=== PATIENT | male | born 1960 | race Caucasian/White ===

== ENCOUNTER 2024-11-01 14:22 | Inpatient (IN) | payer OTHER ==
--- OUTSIDE RECORDS SUMMARY | 2024-11-01 14:25 | XMS REPORT | Continuity of Care Document ---
Author Name Unknown Address [address] [facility] [address] th[address] Address [address] [facility] 1 [address] [place] [address] Care Team Providers Care Flute Teacher Name Role Phone Porfirio Pollard Attending Clinician Unavailable Anurag Marinelli Attending Clinician Unavailable Encounters Start Date/Time End Date/Time Encounter Type Admission Type Attending Clinicians Care Facility Care Department Encounter ID Source 2023-08-30 15:29:00 [facility] [id number] [facility] 2023-08-20 08:20:01 Outpatient Porfirio Pollard [facility] [id number] [facility] 2023-04-07 12:49:00 Outpatient Porfirio Pollard [facility] [id number] [facility] 2023-04-05 08:45:02 Outpatient Anurag Marinelli [facility] [id number] [facility] 2022-12-29 08:28:02 Outpatient Anurag Marinelli [facility] [id number] [facility]
--- NOTE | 2024-11-01 15:00 | RAD REPORT ---
EXAMINATION: ONE VIEW CHEST XR CLINICAL INDICATION: DYSPNEA TECHNIQUE: Frontal chest projection is submitted. Examination is limited by patient positioning and t echnique. COMPARISON: 07/12/2007 FINDINGS: Moderate bilateral pulmonary opacities are present, slightly greater on the right. This would indicat e pulmonary edema or pneumonia. The heart is moderately enlarged in size. No displaced fractures identified.
[2024-11-01 15:49] LABS: SARS-CoV-2 Antigen CONTROL BLUE LINE VIS/BG OK; SARS-CoV-2 Antigen Rapid Res Negative (Negative)
[2024-11-01 15:56] LABS: Albumin 3.1 g/dL (3.4-5.0); Albumin/Globulin Ratio 0.6 (1.1-1.8); Anion Gap 10.4 mEq/L (5.0-15.0); Bilirubin Total 0.9 mg/dL (0.2-1.0); Globulin 5.1 g/dL (2.3-3.5); Potassium 3.4 mEq/L (3.5-5.1); Protein, Total 8.2 g/dL (6.4-8.2)
[2024-11-01 15:59] LABS: PTT, Activated Partial Thromb 34.9 SECONDS (24.3-36.9); Protime INR 1.26
[2024-11-01] MEDS ORDERED: LEVALBUTEROL 1.25 MG/3 ML NEB ONE (16:08)
[2024-11-01] MEDS ORDERED: HYDROCODONE/APAP 10/325 TAB ONE (16:08)
[2024-11-01 16:33] LABS: Absolute Basophils 0.1 K/uL (0-0.5); Absolute Lymphocytes (CBC) 0.4 K/uL (0.7-4.9); Absolute Monocytes 0.5 K/uL (0.1-1.3); Absolute Neutrophil 6.9 K/uL (1.8-8.0); Basophils % 0.8 % (0-1.3); Eosinophils % 0.4 % (0-4.4); Hematocrit 40.7 % (39.6-49.0); Hemoglobin 12.9 g/dL (13.6-17.9); Lymphocytes % 5.4 % (15.3-44.8); MCH 25.9 pg (27.0-35.0); MCHC 31.7 g/dL (32.0-36.0); MCV 81.6 fL (80-100); MPV 8.9 fL (7.6-11.3); Monocytes % 6.4 % (3.3-12.3); Nucleated Red Blood Cells % 0.2 % (0-0); Platelets 275 thou/uL (152-406); RBC Red Blood Cell Count 4.99 M/uL (4.33-5.43); Red Cell Distribution Width 17.2 % (12.1-15.2)
[2024-11-01] MEDS ORDERED: Levofloxacin500mg IV 500 MG/100 ML BAG IV ONE (16:37)
--- NOTE | 2024-11-01 16:48 | EDPHYS ---
Physician Documentation [facility] Name: Heath Gaviria Age: 64 yrs Sex: Male : 1960 Arrival Date: 11/01/2024 Time: 14:22 Bed 13 Private MD: ED Physician Cricket Maldonado HPI: 11/01 15:10 This 64 yrs old Male presents to ER via EMS with complaints of Shortness Of Breath. rn 15:10 The patient has shortness of breath at rest, with light activity. Onset: The rn symptoms/episode began/occurred yesterday. Duration: The symptoms are continuous. The patient's shortness of breath is aggravated by exertion, light activity, supine position, walking. Severity of symptoms: At their worst the symptoms were moderate in the emergency department the symptoms are unchanged. The patient has experienced similar episodes in the past. Patient reports feeling short of breath and weak for 3 days. Reports cough and congestion. No fever or chills. Reports increased leg swelling recently. States does not have PCP.. Historical: - Allergies: 14:34 PENICILLINS; me1 14:34 Iodine; me1 14:34 Tetanus Vaccines \T\ Toxoid; me1 - PMHx: 14:34 Hypertensive disorder; Diabetes mellitus; me1 - Immunization history:: Adult Immunizations unknown. - Infectious Disease History:: Denies. - Social history:: Smoking status: Patient reports the use of cigarette tobacco products, smokes one pack cigarettes per day. - Family history:: not pertinent. - Hospitalizations: : No recent hospitalization is reported. ROS: 15:10 Constitutional: Negative for fever, chills, and weight loss, Cardiovascular: Positive rn for lower extremity edema Respiratory: Positive for cough and shortness of breath, negative for hemoptysis Abdomen/GI: Negative for abdominal pain, nausea, vomiting, diarrhea, and constipation, MS/Extremity: Negative for injury and deformity, Skin: Negative for injury, rash, and discoloration, Neuro: Positive for generalized weakness and malaise Exam: 15:10 Constitutional: This is a well developed, well nourished patient who is awake, alert, rn and in no acute distress. Cardiovascular: Tachycardic, irregular rhythm. No pulse deficits. Respiratory: Moderate tachypnea with diminished breath sounds bilaterally, no retractions Abdomen/GI: Soft, nontender MS/ Extremity: No cyanosis. Bilateral chronic woody edema with circular wound plantar surface of left foot, mild warmth. Neuro: Awake and alert, GCS 15 15:39 ECG was reviewed by the Attending Physician. rn Vital Signs: 14:27 BP 173 / 109; Pulse 90; Resp 24; Temp 97.4; Pulse Ox 100% on 4 lpm NC; Weight 183 kg; me1 Height 6 ft. 4 in. ; Pain 0/10; 15:00 BP 205 / 104; Pulse 110; Resp 22; Pulse Ox 99% on 4 lpm NC; me1 16:00 BP 194 / 114; Pulse 110; Resp 22; Pulse Ox 98% on R/A; me1 16:46 BP 169 / 99; rn 17:00 BP 170 / 95; Pulse 103; Resp 22; Pulse Ox 98% on 4 lpm NC; me1 18:00 BP 174 / 94; Pulse 104; Resp 18; Pulse Ox 96% on 4 lpm NC; me1 18:30 BP 161 / 90; Pulse 89; Resp 16; Pulse Ox 99% on 4 lpm NC; me1 14:27 Body Mass Index 49.11 (183.00 kg, 193.04 cm) me1 14:27 Pain Scale: Adult me1 MDM: 14:25 Medical Screening Exam initiated rn 15:58 ED course: Patient also with smoking history, given Solu-Medrol by EMS prior to arrival.rn 16:22 ED course: EMS reports O2 sat 86% on room air. 97% on 4 L nasal cannula.. rn 16:46 Differential diagnosis: CHF exacerbation, Chronic Obstructive Pulmonary Disease rn pneumonia, Pneumothorax pulmonary edema. Data reviewed: vital signs, nurses notes, lab test result(s), radiologic studies, plain films, and as a result, I will admit patient. Consideration of Admission/Observation Patient was admitted/placed on observation. Escalation of care including admission/observation considered. Counseling: I had a detailed discussion with the patient and/or guardian regarding the historical points, exam findings, and any diagnostic results supporting the discharge/admit diagnosis, the presence of at least one elevated blood pressure reading (>120/80) during this emergency department visit, lab results, radiology results, the need for further work-up and treatment in the hospital. Response to treatment: the patient's symptoms have mildly improved after treatment. 11/01 14:26 Order name: Blood Culture Adult (2) rn 11/01 14:26 Order name: CBC with Diff rn 11/01 14:26 Order name: CMP; Complete Time: 16:06 rn 11/01 14:26 Order name: Lactate w/ 2H reflex if indic.; Complete Time: 15:56 rn 11/01 14:26 Order name: Protime (+inr); Complete Time: 16:06 rn 11/01 14:26 Order name: Ptt, Activated; Complete Time: 16:06 rn 11/01 14:33 Order name: SARS-COV-2 Antigen Rapid; Complete Time: 15:56 rn 11/01 14:33 Order name: Flu; Complete Time: 15:56 rn 11/01 15:04 Order name: BNP; Complete Time: 16:43 rn 11/01 17:23 Order name: Urinalysis w/ reflexes EDMS 11/01 17:23 Order name: Basic Metabolic Panel EDMS 11/01 17:23 Order name: Basic Metabolic Panel EDMS 11/01 17:23 Order name: Basic Metabolic Panel EDMS 11/01 17:23 Order name: Basic Metabolic Panel EDMS 11/01 17:23 Order name: Basic Metabolic Panel EDMS 11/01 17:23 Order name: Basic Metabolic Panel EDMS 11/01 17:23 Order name: CBC with Automated Diff EDMS 11/01 17:23 Order name: CBC with Automated Diff EDMS 11/01 17:23 Order name: CBC with Automated Diff EDMS 11/01 17:23 Order name: CBC with Automated Diff EDMS 11/01 17:23 Order name: CBC with Automated Diff EDMS 11/01 17:23 Order name: CBC with Automated Diff EDMS 11/01 17:23 Order name: Magnesium EDMS 11/01 17:23 Order name: Magnesium EDMS 11/01 17:23 Order name: Magnesium EDMS 11/01 17:23 Order name: Magnesium EDMS 11/01 17:23 Order name: Magnesium EDMS 11/01 17:23 Order name: Magnesium EDMS 11/01 17:23 Order name: Phosphorus EDMS 11/01 17:23 Order name: Phosphorus EDMS 11/01 17:23 Order name: Phosphorus EDMS 11/01 17:23 Order name: Phosphorus EDMS 11/01 17:23 Order name: Phosphorus EDMS 11/01 17:23 Order name: Phosphorus EDMS 11/01 17:44 Order name: Procalcitonin EDUT 11/01 17:44 Order name: Troponin High Sensitivity [facility] 11/01 17:44 Order name: Troponin High Sensitivity [facility] 11/01 17:44 Order name: Troponin High Sensitivity [facility] 11/01 17:44 Order name: Troponin High Sensitivity [facility] 11/01 14:26 Order name: Chest Single View XRAY; Complete Time: 15:04 rn 11/01 17:50 Order name: CONS Physician Consult EDUT 11/01 14:26 Order name: Accucheck; Complete Time: 17:13 rn 11/01 14:26 Order name: Cardiac monitoring; Complete Time: 15:30 rn 11/01 14:26 Order name: EKG - Nurse/Tech; Complete Time: 15:30 rn 11/01 14:26 Order name: IV Saline Lock - Large Bore; Complete Time: 15:10 rn 11/01 14:26 Order name: Labs collected and sent; Complete Time: 15:10 rn 11/01 14:26 Order name: O2 Per Protocol; Complete Time: 15:10 rn 11/01 14:26 Order name: O2 Sat Monitoring; Complete Time: 15:10 rn 11/01 14:26 Order name: Vital Signs; Complete Time: 15:10 rn 11/01 15:25 Order name: Labs - recollect needed: recollect blue top/ short and hemolyzed per kirit Rudolph; Complete Time: 16:05 EC:39 Rate is 110 beats/min. Rhythm is irregularly irregular. QRS [place] is Normal. QRS rn interval is normal. QT interval is normal. No Q waves. T waves are Normal. No ST changes noted. Clinical impression: Atrial Fibrillation. Interpreted by me. Reviewed by me. Administered Medications: 16:11 Drug: Levalbuterol Inhalation 1.25 mg Inhalation once Route: Inhalation; me1 17:10 Follow up: Response: No adverse reaction me1 16:14 Drug: [place] PO 10 mg-325 mg 1 tabs PO once Route: PO; me1 16:48 Follow up: Response: No adverse reaction; Pain is decreased me1 16:42 Drug: levofloxacin IVPB 500 mg 100 ml IVPB once over 60 mins Volume: 100 ml; Route: [facility] IVPB; Infused Over: 60 mins; Site: left hand; 17:42 Follow up: Response: No adverse reaction; IV Status: Completed infusion; IV Intake: me1 100ml 17:17 Drug: Furosemide IVP 40 mg IVP once; give over 2 minutes Route: IVP; Site: left hand; me1 17:29 Follow up: Response: No adverse reaction me1 Disposition Summary: 11/01/24 16:47 Hospitalization Ordered Notes: Hospitalization Status: Inpatient Admission rn Provider: Srinivasan Nguyen rn Location: Telemetry/MedSurg (observation) rn Condition: Stable rn Problem: new rn Symptoms: have improved rn Bed/Room Type: Standard rn Room Assignment: 229(11/01/24 17:35) em1 Diagnosis - Dyspnea, unspecified rn - Acute pulmonary edema rn - Hypoxemia rn Forms: - Medication Reconciliation Form rn - SBAR form rn - Leadership Thank You Letter rn Signatures: Dispatcher [employer] [facility] Cricket Maldonado MD MD rn Martinez, Eric em1 Gina Meyer Michelle, RN RN me1 Corrections: (The following items were deleted from the chart) 14:26 14:26 Chest Single View+[id number] ordered. [facility] EDUT 15:55 15:10 Constitutional: This is a well developed, well nourished patient who is awake, rn alert, and in no acute distress. Cardiovascular: Regular rate and rhythm. No pulse deficits. Respiratory: Moderate tachypnea with diminished breath sounds bilaterally, no retractions Abdomen/GI: Soft, nontender MS/ Extremity: No cyanosis. Bilateral chronic woody edema with circular wound plantar surface of left foot, mild warmth. Neuro: Awake and alert, GCS 15 rn 17:35 16:47 rn em1
--- NOTE | 2024-11-01 16:48 | ER ---
Nurse's Notes [facility] Name: Heath Gaviria Age: 64 yrs Sex: Male : 1960 Arrival Date: 11/01/2024 Time: 14:22 Bed 13 Private MD: Diagnosis: Dyspnea, unspecified;Acute pulmonary edema;Hypoxemia Presentation: 11/01 14:27 Chief complaint: EMS states: toned out for SOB that started last night. c/o diarrhea, me1 dizziness, nausea, cough and congestion that started 3 days ago. Room air o2 sat was 86%, administered 4 lpm via nc and sat increased to 97%. EMS started a 20g to L hand and was given solumedrol 125mg IV and zofran 4mg IV. Coronavirus screen: Vaccine status: Patient reports receiving the 2nd dose of the covid vaccine. Ebola Screen: No symptoms or risks identified at this time. Initial Sepsis Screen: Does the patient meet any 2 criteria? HR > 90 bpm. Does the patient have a suspected source of infection?. Risk Assessment: Do you want to hurt yourself or someone else? Patient reports no desire to harm self or others. Onset of symptoms was October 29, 2024. 14:27 Method Of Arrival: EMS: [facility] nh1 14:27 Acuity: ALKA 3 me1 Triage Assessment: 14:34 General: Appears distressed, obese, unkempt, Behavior is cooperative, appropriate for me1 age, anxious, Reports diarrhea, dizziness, nausea, cough, congestion x 3 days. SOB that started yesterday. Pain: Denies pain. EENT: Reports nasal congestion. Neuro: Level of Consciousness is awake, alert, obeys commands, Oriented to person, place, time, situation, Appropriate for age Reports dizziness. Cardiovascular: Patient's skin is warm and dry. Respiratory: Reports shortness of breath at rest on exertion cough that is labored breathing Onset: The symptoms/episode began/occurred yesterday, the patient has moderate shortness of breath. GI: Reports diarrhea, nausea, since 3 days ago. : No signs and/or symptoms were reported regarding the genitourinary system. Derm: Wound noted right leg and left leg Wound is lymphedema. Musculoskeletal: Swelling present in right leg and left leg. Historical: - Allergies: 14:34 PENICILLINS; me1 14:34 Iodine; me1 14:34 Tetanus Vaccines \T\ Toxoid; me1 - PMHx: 14:34 Hypertensive disorder; Diabetes mellitus; me1 - Immunization history:: Adult Immunizations unknown. - Infectious Disease History:: Denies. - Social history:: Smoking status: Patient reports the use of cigarette tobacco products, smokes one pack cigarettes per day. - Family history:: not pertinent. - Hospitalizations: : No recent hospitalization is reported. Screenin:42 [facility] ED Fall Risk Assessment (Adult) History of falling in the last 3 months, me1 including since admission No falls in past 3 months (0 pts) Confusion or Disorientation No (0 pts) Intoxicated or Sedated No (0 pts) Impaired Gait Yes (1 pt) Mobility Assist Device Used Yes (1 pt) Altered Elimination No (0 pt) Score/Fall Risk Level 0 - 2 = Low Risk Maintained a safe environment, Provided non-skid footwear, Hourly rounding (assess needs \T\ fall precautionary measures) done. Abuse screen: Denies threats or abuse. Nutritional screening: No deficits noted. Tuberculosis screening: No symptoms or risk factors identified. Assessment: 14:42 Reassessment: See triage assessment. Respiratory: Airway is patent Respiratory effort me1 is labored, Respiratory pattern is tachypnea Breath sounds are diminished bilaterally. 17:56 Cardiovascular: Rhythm is atrial fibrillation. nh1 Vital Signs: 14:27 BP 173 / 109; Pulse 90; Resp 24; Temp 97.4; Pulse Ox 100% on 4 lpm NC; Weight 183 kg; me1 Height 6 ft. 4 in. ; Pain 0/10; 15:00 BP 205 / 104; Pulse 110; Resp 22; Pulse Ox 99% on 4 lpm NC; me1 16:00 BP 194 / 114; Pulse 110; Resp 22; Pulse Ox 98% on R/A; me1 16:46 BP 169 / 99; rn 17:00 BP 170 / 95; Pulse 103; Resp 22; Pulse Ox 98% on 4 lpm NC; me1 18:00 BP 174 / 94; Pulse 104; Resp 18; Pulse Ox 96% on 4 lpm NC; me1 18:30 BP 161 / 90; Pulse 89; Resp 16; Pulse Ox 99% on 4 lpm NC; me1 14:27 Body Mass Index 49.11 (183.00 kg, 193.04 cm) me1 14:27 Pain Scale: Adult nh1 ED Course: 14:25 Patient arrived in ED. rn 14:25 Cricket Maldonado MD is Attending Physician. rn 14:26 Kasia Richey, PHILLIP is Primary Nurse. me1 14:34 Triage completed. me1 14:34 Arm band placed on Patient placed in an exam room. me1 14:39 Chest Single View XRAY In Process Unspecified. EDMS 14:42 Patient has correct armband on for positive identification. Bed in low position. Call me1 light in reach. Side rails up X2. Provided Education on: POC. Verbalized understanding.. Client placed on continuous cardiac and pulse oximetry monitoring. NIBP monitoring applied. hospital monitor on. Pulse ox on. NIBP on. 14:42 No provider procedures requiring assistance completed. Maintain EMS IV. Dressing me1 intact. Good blood return noted. Site clean \T\ dry. Gauge \T\ site: 20g L hand. Flushed with 10 mL NS. 15:06 Initial lab(s) drawn, by nh, sent to lab. First set of blood cultures drawn by nh. me1 15:10 BNP Sent. me1 15:10 Flu Sent. me1 15:10 SARS-COV-2 Antigen Rapid Sent. me1 15:10 Blood Culture Adult (2) Sent. me1 15:10 CBC with Diff Sent. me1 15:10 CMP Sent. me1 15:10 Lactate w/ 2H reflex if indic. Sent. me1 15:10 Protime (+inr) Sent. me1 15:10 Ptt, Activated Sent. me1 15:18 Second set of blood cultures drawn by nh. me1 15:30 EKG done, by ED staff, reviewed by Cricket Maldonado MD. me1 16:46 Srinivasan Nguyen is Hospitalizing Provider. rn 17:53 Patient admitted, IV remains in place. me1 Administered Medications: 16:11 Drug: Levalbuterol Inhalation 1.25 mg Inhalation once Route: Inhalation; me1 17:10 Follow up: Response: No adverse reaction me1 16:14 Drug: [place] PO 10 mg-325 mg 1 tabs PO once Route: PO; me1 16:48 Follow up: Response: No adverse reaction; Pain is decreased me1 16:42 Drug: levofloxacin IVPB 500 mg 100 ml IVPB once over 60 mins Volume: 100 ml; Route: me1 IVPB; Infused Over: 60 mins; Site: left hand; 17:42 Follow up: Response: No adverse reaction; IV Status: Completed infusion; IV Intake: me1 100ml 17:17 Drug: Furosemide IVP 40 mg IVP once; give over 2 minutes Route: IVP; Site: left hand; me1 17:29 Follow up: Response: No adverse reaction me1 Medication: 14:42 VIS not applicable for this client. me1 Intake: 17:42 IV: 100ml; Total: 100ml. me1 Outcome: 16:47 Decision to Hospitalize by Provider. rn 17:53 Admitted to Med/surg accompanied by tech, via stretcher, room 229, with chart, Report me1 called to faxed. No answer. Informed PHILLIP Richter (lodging house keeper). Neelam is checking on a bariatric bed for the patient and will call me back. 17:53 Condition: stable 17:53 Instructed on the need for admit, 18:51 Patient left the ED. me1 Signatures: Dispatcher [employer] Cricket Holloway MD MD rn Eddleman, Michelle, RN RN me1
[2024-11-01] MEDS ORDERED: FUROSEMIDE 40 MG/4 ML VIAL ONE (17:11)
[2024-11-01] MEDS: FUROSEMIDE 40 MG/4 ML VIAL IV ONE (17:17)
--- NOTE | 2024-11-01 17:25 | P.HP ---
Certification for Inpatient Patient admitted to: Inpatient With expected LOS: >2 Midnights Practitioner: I am a practitioner with admitting privileges, knowledge of patient current condition, hospital course, and medical plan of care. Services: Services provided to patient in accordance with Admission requirements found in Title 42 Section 412.3 of the Code of Federal Regulations Patient History Date of Service: 11/01/24 Reason for admission: Pulmonary edema vs PNA History of Present Illness: Heath Gaviria is a 64 year old male with Pmhx HTN, Diabetes mellitus, and verrucous cobblestone papules who presents to the ED with chief complaint of SOB. On evaluation, he is on 4 LNC, uncomfortable with positioning, malodorous bilateral lower extremity verrucous cobblestone papules present. He reports seeing Dr. Pollard but lost his insurance and is unable to see a doctor at this time. He reports wrapping his legs on his own and has experienced an increased swelling to BLE. Laboratory evaluation significant for left shift neutrophil 87, H&H 12.9/40.7, sodium 128, potassium 3.4, serum glucose 230, BNP 1625. Initial vitals BP 173 / 109; Pulse 90; Resp 24; Temp 97.4; Pulse Ox 100% on 4 lpm NC Chest xray reports "Moderate bilateral pulmonary opacities are present, slightly greater on the right. This would indicate pulmonary edema or pneumonia. The heart is moderately enlarged in size. No displaced fractures identified." Heath will be admitted to hospitalist service for further evaluation and treatment of bilateral pulmonary edema. Allergies No Known Allergies Allergy (Unverified 11/01/24 17:28) - Past Medical/Surgical History -: DM- IDDM -: HTN -: Chronic wounds BLE Past Surgical History: Unable to obtain Review of Systems General: Other (uncomfortable) Respiratory: Shortness of Breath Physical Examination - Physical Exam General: Alert, Oriented x3, Acute distress HEENT: Atraumatic, Normocephalic Neck: Supple Respiratory: Clear to auscultation bilaterally Cardiovascular: Normal pulses, Regular rate/rhythm, Normal S1 S2 Capillary refill: <2 Seconds Gastrointestinal: Normal bowel sounds, Distended (Obese) Musculoskeletal: No clubbing, Other (Cobblestone papules BLE) Integumentary: Skin breakdown (BLE) Neurological: Normal speech, Normal tone - Studies Laboratory Data (last 24 hrs) 11/01/24 11/01/24 11/01/24 15:43 15:06 15:06 WBC 8.00 Hgb 12.9 L Hct 40.7 Plt Count 275 PT 14.0 H INR 1.26 APTT 34.9 Sodium 128 L Potassium 3.4 L BUN 9 Creatinine 0.81 Glucose 230 H Total Bilirubin 0.9 AST 20 ALT 17 Alkaline Phosphatase 59 Microbiology Data (last 24 hrs): 11/01/24 14:51 Nasopharnyx Influenza Type A Antigen Screen - Final 11/01/24 14:51 Nasopharnyx Influenza Type B Antigen Screen - Final Assessment and Plan - Plan Assessment and Plan SOB 2/2 Bilateral Pulmonary Edema vs PNA Hyponatremia 2/2 Fluid volume overload Nausea/vomiting -Na 128, BNP 1624 -Serial Troponin pending - lasix 40 IV given in the ED, continue on the floor -Oxygen protocol -procalcitonin pending -Strict intake and output, daily weight -Levofloxacin -Zofran Diabetes Mellitus- IDDM - Accucheck with SSI -Serum glucose 230 HTN -continue home medications when appropriate verrucous cobblestone papules Debilitated -Consult surgery -Physical therapy DVT ppx Lovenox Full code LOS 2 to 3 days Discharge Plan: Home Plan to discharge in: 48 Hours - Advance Directives Does patient have a Living Will: No Does patient have a Durable POA for Healthcare: No
[2024-11-01 19:27] LABS: Blood Morphology Comment NOT SEEN (NOT SEEN); Platelet Estimate ADEQ; White Blood Cell Scan OK (OK)
[2024-11-01] MEDS: ONDANSETRON 4 MG/2 ML VIAL ONE (19:57)
[2024-11-01] MEDS: ONDANSETRON 4 MG/2 ML VIAL IV PRN (20:09)
[2024-11-01] MEDS: ACETAMINOPHEN 325 MG TABLET PO PRN (20:11)
[2024-11-01] MEDS: ALBUTEROL 2.5 MG/3 ML NEB SOL NEB SCH (20:11)
[2024-11-01] MEDS: INSULIN REGULAR (HUMAN) 100 UNIT/ML SQ SCH (22:42)
[2024-11-01] MEDS: PROCHLORPERAZINE 5 MG TAB PO ONE (23:17)
[2024-11-02] MEDS: PROMETHAZINE INJ 25 MG/ML AMP IV ONE (00:02)
[2024-11-02] MEDS: MORPHINE 2 MG/ML SYR IV PRN (01:25)
[2024-11-02 04:23] LABS: Specific Gravity 1.025 (1.005-1.030); Sqamous Epithelial <5 /HPF (None Seen); Urine Bacteria Loaded /HPF (<20); Urine Bilirubin NEGATIVE (Negative); Urine Blood 3+ (Negative); Urine Clarity Extremely Turbid (Clear); Urine Color Orange (Yellow); Urine Culture Reflex Order NOT NEEDED; Urine Glucose 2+ (Negative); Urine Ketones 2+ (Negative); Urine Microscopic Reflex YN ORDER UMIC; Urine Mucus 2+ /HPF (None Seen); Urine Nitrite NEGATIVE (Negative); Urine Protein 2+ (Negative); Urine RBC <5 /HPF (None Seen); Urine Urobilinogen Normal (Normal); Urine WBC <5 /HPF (<5); Urine pH 5.5 (5.0-7.0)
[2024-11-02 06:30] LABS: Troponin High Sensitivity 24.4 pg/mL (<58.9)
[2024-11-02 07:01] LABS: Absolute Lymphocytes (CBC) 0.4 K/uL (0.7-4.9); Absolute Monocytes 0.4 K/uL (0.1-1.3); Absolute Neutrophil 5.8 K/uL (1.8-8.0); Basophils % 0.2 % (0-1.3); Eosinophils % 0.1 % (0-4.4); Hemoglobin 13.6 g/dL (13.6-17.9); Lymphocytes % 5.8 % (15.3-44.8); MCH 25.7 pg (27.0-35.0); MCHC 30.8 g/dL (32.0-36.0); MCV 83.5 fL (80-100); MPV 8.2 fL (7.6-11.3); Monocytes % 6.1 % (3.3-12.3); Neutrophils % 87.8 % (41.7-73.7); Nucleated Red Blood Cells % 0.6 % (0-0); Platelets 256 thou/uL (152-406); RBC Red Blood Cell Count 5.27 M/uL (4.33-5.43)
[2024-11-02] MEDS ORDERED: Levofloxacin 750mg IV 750 MG/150 ML BAG IV SCH (09:00)
[2024-11-02] MEDS: levoFLOXacin 750 MG TAB PO SCH (09:05)
[2024-11-02] MEDS: ENOXAPARIN 40 MG/0.4 ML SQ SCH (09:05)
[2024-11-02] MEDS: FLUOCINONIDE 0.05% CREAM 30GM TOP SCH (09:30)
[2024-11-02 11:15] LABS: Arterial Blood Carboxyhemoglob 1.3 % (0-1.5); Blood Gas Oxyhemoglobin 83.9 % (94-97); Blood O2 Saturation 85.9 % (92-98.5)
[2024-11-02 11:16] LABS: Blood Gas THB 14.4 g/dl (12-18)
[2024-11-02] MEDS: HYDRALAZINE HCL 20 MG/ML VIAL IV PRN (11:23)
--- NOTE | 2024-11-02 11:46 | CON ---
Date of Consultation: 11/01/2024 Reason For Consultation: Bilateral lower extremity edema. History Of Present Illness: The patient is a 64-year-old gentleman with multiple medical problems, w sabi was admitted with shortness of breath. His workup revealed pneumonia versus pulmonary edema. Lisa parker also has lymphedema, for which he was seeing Dr. Pollard as an outpatient. However, because of in surance issues, he has not seen a provider in several months. He is complaining of some increased sw elling and pain in the left leg, worse in the right leg. The patient is morbidly obese, but he denie s any fevers, chills, or any open wounds of any significance on the lower extremity. He does have ve ry dry skin and he does not have any compression stocking. Has not seen a lymphedema specialist as carmelo sun. Right now, his main concern is the shortness of breath, which is being managed by the [facility] team. He denies any sore throat, runny nose, cough, headaches, or dizziness. No chest pain. Review of Systems: Otherwise, unremarkable. The patient on his review of systems did not have any nausea or vomiting. Past Medical History: Significant for morbid obesity, type 1 diabetes, hypertension, bilateral lower extremity lymphedema. Physical Examination: General: He is awake and alert, required to sit up to be able to breathe comfortably, cannot lay fla t. Head and Neck. There are no masses. Chest: Clear. Heart: S1, S2. Abdomen: Soft. Nondistended. Positive bowel sounds. Does have a large ventral hernia. Does not a ppears to be strangulated or incarcerated. It is not tender. It is not red. It is not tense. Extr emities: Patient has bilateral lower extremity lymphedema significant with dry scaly skin. __ cannot be obtained because of the swelling. However, there are no secondary effects of vascular c ompromise. There are no open wounds seen. Neuro: Nonfocal. Laboratory Data: Reviewed. White count is normal. There is a slight left shift. INR is 1.26. His chemistry reviewed. Glucose is elevated; otherwise, unremarkable. Assessment: 64-year-old gentleman with shortness of breath secondary to either pneumonia or pulmonar y edema, as well as, bilateral lower extremity lymphedema from which he is symptomatic. Recommendations: We will order Lidex for the dry skin. We will do Deuce and Kerlix for the time being . For gentle compression, we will get venous Doppler. Should that be negative, then patient would b enefit from compressive therapy of Coban and then subsequently wraps that he can put on himself. The patient would benefit from an outpatient evaluation of Lymphedema Clinic and should he [facility] with us, we will be happy to arrange that referral if he needs it. PAUL/BRAEDEN Voice ID: [id number] Report ID: [id number]
[2024-11-02] MEDS: DEXMEDETOMIDINE HCL 1,000 MCG in NA CHLORIDE 0.9% 490 ML IV SCH (11:48)
--- NOTE | 2024-11-02 11:53 | P.PN ---
Patient seen and examined with Ms. Tinoco. Plan of care discussed I agree with above plan of care. Patient was somnolent on oxygen by nasal cannula, arterial blood gas showed CO2 retention and respiratory acidosis. Patient was transferred to the ICU and placed on BiPAP. He was agitated and restless on the BiPAP so patient was placed on low-dose Precedex. Patient respiratory condition worsened on the BiPAP, acidosis worsened with pH down to 7.09, pCO2 worsened. Case discussed with pulmonary Dr. Wharton, patient intubated and placed on mechanical ventilation. Continue bronchodilators Continue IV Lasix ICU ventilation protocol initiated. Pulmonary to follow. Critical care time spent managing patient altered mental status, acute respiratory failure and CO2 retention was about 48 minutes. <sapna herrera - Last Filed: 11/02/24 19:11> Date of Service: 11/02/24 Subjective Altered and agitated this morning, taking off oxygen with saturation in the 70s ABG showing respiratory acidosis, moved to ICU for continuous Bipap Unable to obtain a CT PE protocol for further investigation. Now on precedex, relaxed in ICU, will place midline today Sodium improved with lasix, UOP 600 recorded this morning ROS 10 point ROS as noted above, otherwise negative Physical Exam General: Awake, agitated, Acute distress HEENT: Atraumatic, Normocephalic Neck: Supple Respiratory: Clear BBS, on nasal cannula Cardiovascular: Normal pulses, RRR, Normal S1 S2 Capillary refill: <2 Seconds Gastrointestinal: Normal bowel sounds, Distended (Obese) Musculoskeletal: No clubbing, Other (Cobblestone papules BLE) Integumentary: Skin breakdown (BLE) Neurological: Normal speech, Normal tone Vitals Reviewed Problem list Acute Hypercarbic Respiratory failure 2/2 pulmonary Edema vs PNA Respiratory acidosis Hyponatremia 2/2 Fluid volume overload Nausea/vomiting Diabetes Mellitus- IDDM HTN verrucous cobblestone papules Debilitated Assessment and Plan Acute Hypercarbic Respiratory failure 2/2 pulmonary Edema vs PNA Respiratory acidosis Agitation Hyponatremia 2/2 Fluid volume overload Nausea/vomiting -initial Na 128, BNP 1624, Na 134- improved -Serial Troponin pending -lasix 40 IV given in the ED, continue on the floor -Oxygen protocol -procalcitonin <0.5 -Strict intake and output, daily weight -Levofloxacin PO -Zofran -Precedex Diabetes Mellitus- IDDM - Accucheck with SSI -Serum glucose 254 HTN -continue home medications when appropriate verrucous cobblestone papules Debilitated -Consult surgery -Physical therapy -US BLE results pending DVT ppx Lovenox Full code LOS 2 to 3 days Discharge Plan: Home Plan to discharge in: 48 Hours <Varsha Tinoco - Last Filed: 11/03/24 06:27>
[2024-11-02] MEDS: FLU (Fluarix Triv) TS24-25(6MOS UP)/PF 45 MCG/0.5 ML Syringe IM ONE (12:00)
[2024-11-02] MEDS: FUROSEMIDE 40 MG/4 ML VIAL IV ONE (15:56)
[2024-11-02] MEDS: propofoL 1,000 MG/100 ML VIAL IV ONE (16:07)
[2024-11-02] MEDS: propofoL 1,000 MG/100 ML VIAL IV SCH (16:30)
--- NOTE | 2024-11-02 17:17 | RAD REPORT ---
EXAMINATION: ONE VIEW CHEST XR CLINICAL INDICATION: ETT TECHNIQUE: Frontal chest projection is submitted. Examination is limited by patient positioning and t echnique. COMPARISON: 11/01/2024 FINDINGS: Tip of the endotracheal tube is above the alfred at the level of the superior aortic arch. Enteric tu be tip is in the stomach.
--- NOTE | 2024-11-02 17:17 | RAD REPORT ---
EXAM: XR of the abdomen HISTORY: Abdominal pain NGT COMPARISON: None FINDINGS: Enteric tube is in the stomach.
--- NOTE | 2024-11-02 17:29 | RAD REPORT ---
EXAMINATION: US RIGHT LOWER EXTREMITY VENOUS DOPPLER CLINICAL INDICATION: cobblestone ulcerations BLE TECHNIQUE: Complete bilateral duplex sonography of the RIGHT lower extremity veins was performed. The examination included compression for vein patency, color Doppler imaging and flow augmentation in response to distal compression of the distal external iliac, common femoral, femoral, popliteal, tibi al, and great and small saphenous veins. COMPARISON: No prior exam. FINDINGS: Duplex sonography testing of the veins of the RIGHT lower extremity was performed. Color flow imaging shows all veins to be compressible with [id number] color filling. Pulsatile and phasic flow is present within all lower extremity deep and superficial veins examined. Examinations of the veins bel ow the level of the popliteal vein was not feasible due to clinical condition of the patient. IMPRESSION: There is no deep vein or superficial vein thrombosis.
--- NOTE | 2024-11-02 17:31 | RAD REPORT ---
EXAMINATION:Lower Extremity Arterial Bilat CLINICAL INDICATION: Male, 64 years old. Cobblestone ulcerations TECHNIQUE: Arterial duplex ultrasound was performed of the right lower extremity with real-time, colo r-flow, and spectral wave Doppler evaluation. Ankle brachial indices were not performed. COMPARISON: No prior exam. FINDINGS: Proximal to the level of the popliteal artery, normal triphasic flow noted. No stenosis or occlusion Distal vessels cannot be well assessed it is patient's clinical condition.
[2024-11-02] MEDS ORDERED: ETOMIDATE 20 MG/10 ML VIAL IV ONE (17:50)
[2024-11-02] MEDS ORDERED: SUCCINYLCHOLINE 20 MG/ML (10 ML) IV ONE (17:50)
[2024-11-02 17:54] LABS: Arterial Blood Carboxyhemoglob 1.2 % (0-1.5); Blood Gas Oxyhemoglobin 93.5 % (94-97); Blood O2 Saturation 95.5 % (92-98.5)
[2024-11-02] MEDS: Mupirocin NASAL 2 APPL/1 GM TUBE NAS SCH (20:36)
[2024-11-02 21:31] LABS: Arterial Blood Carboxyhemoglob 1.3 % (0-1.5); Blood Gas Oxyhemoglobin 95.5 % (94-97); Blood O2 Saturation 97.5 % (92-98.5)
[2024-11-03 05:53] LABS: Absolute Lymphocytes (CBC) 0.5 K/uL (0.7-4.9); Absolute Monocytes 0.6 K/uL (0.1-1.3); Absolute Neutrophil 5.3 K/uL (1.8-8.0); Basophils % 0.2 % (0-1.3); Eosinophils % 0.2 % (0-4.4); Hemoglobin 12.4 g/dL (13.6-17.9); Lymphocytes % 7.9 % (15.3-44.8); MCH 25.9 pg (27.0-35.0); MCHC 31.7 g/dL (32.0-36.0); MCV 81.6 fL (80-100); MPV 7.7 fL (7.6-11.3); Monocytes % 9.3 % (3.3-12.3); Neutrophils % 82.4 % (41.7-73.7); Platelets 256 thou/uL (152-406); RBC Red Blood Cell Count 4.78 M/uL (4.33-5.43); Red Cell Distribution Width 16.6 % (12.1-15.2)
[2024-11-03 06:07] LABS: Anion Gap 6.2 mEq/L (5.0-15.0); Magnesium 2.3 mg/dL (1.6-2.4); Potassium 3.2 mEq/L (3.5-5.1)
[2024-11-03 06:16] LABS: Phosphorus 1.4 mg/dL (2.5-4.9)
[2024-11-03] MEDS: POTASSIUM PHOS IN 0.9 % NACL 15 MMOL/250 ML BAG IV ONE (07:28)
[2024-11-03] MEDS: KCL 20 MEQ/100 mL IVPB 20 MEQ/100 ML BAG IV SCH (07:34)
[2024-11-03] MEDS ORDERED: HALOPERIDOL LACT 5 MG/ML INJ IV PRN (07:36)
[2024-11-03] MEDS ORDERED: NA CHLORIDE 0.9% 250 ML IV PRN (07:36)
[2024-11-03] MEDS: LORazepam 2 MG/ML VIAL IV PRN (07:58)
[2024-11-03] MEDS: Levofloxacin 750mg IV 750 MG/150 ML BAG IV SCH (08:06)
[2024-11-03] MEDS: FAMOTIDINE 20 MG/2 ML VIAL IV SCH (08:06)
--- NOTE | 2024-11-03 08:38 | RAD REPORT ---
EXAMINATION: ONE VIEW CHEST XR CLINICAL INDICATION: Intubated. TECHNIQUE: Frontal chest projection is submitted. Examination is limited by patient positioning and t echnique. COMPARISON: 11/02/2024 FINDINGS: Tip of the endotracheal tube is above the alfred, approximately 1 cm above the level of the superior aortic arch. Enteric tube descends into the stomach, tip not included on the radiograph. Mild bilateral interstitial pulmonary opacities, unchanged. Heart is moderately enlarged.
[2024-11-03] MEDS ORDERED: SODIUM CHLORIDE 0.9% 10ML INJ IV PRN (08:42)
[2024-11-03] MEDS: PANTOPRAZOLE 40 MG INJ IVP SCH (08:54)
[2024-11-03] MEDS: INSULIN REGULAR (HUMAN) 100 UNIT/ML SQ SCH (11:12)
[2024-11-03] MEDS: FENTANYL CITR 100 MCG/2 ML IV PRN ×2 (13:02→14:18)
--- NOTE | 2024-11-03 14:46 | ECHO ---
HEIGHT: 6 ft 4 in WEIGHT: 397 lb 14.4 oz DATE OF STUDY: 11/03/[address]: Adrian Mccallum MD 2-DIMENSIONAL: YES M.MODE: YES DOPPLER: YES COLOR FLOW: YES TDS: NO PORTABLE: YES DEFINITY: NO BUBBLE STUDY: NO DIAGNOSIS: SHORTNESS OF BREATH, ABNORMAL HEART RATE AND BLOOD PRESSURE CARDIAC HISTORY: CATHERIZATION: SURGERY: PROSTHETIC VALVE: PACEMAKER: MEASUREMENTS (cm) DIASTOLIC (NORMALS) SYSTOLIC (NORMALS) IVSd 1.3 (0.6-1.2) LA Diam 3.7 (1.9-4.0) LVEF 55-60% LVIDd 3.9 (3.5-5.7) LVIDs 2.9 (2.0-3.5) %FS 26% LVPWd 1.4 (0.6-1.2) Ao Diam 3.3 (2.0-3.7) 2 DIMENSIONAL ASSESSMENT: RIGHT ATRIUM: NORMAL LEFT ATRIUM: NORMAL RIGHT VENTRICLE: NORMAL LEFT VENTRICLE: NORMAL TRICUSPID VALVE: TRACE TRICUSPID REGURGITATION MITRAL VALVE: NORMAL PULMONIC VALVE: NORMAL AORTIC VALVE: NORMAL PERICARDIAL EFFUSION: NONE AORTIC ROOT: NORMAL LEFT VENTRICULAR WALL MOTION: NORMAL. DOPPLER/COLOR FLOW: NORMAL. COMMENTS: 1. NORMAL LEFT VENTRICULAR SYSTOLIC FUNCTION. LEFT VENTRICULAR EJECTION FRACTION 55-60%. NORMAL WALL MOTION. 2. ELEVATED FILLING PRESSURE. RIGHT ATRIAL PRESSURE 15-20 mmHg. TECHNOLOGIST: PAN PIERRE
--- NOTE | 2024-11-03 15:43 | P.PN ---
Subjective Date of Service: 11/03/24 Chief Complaint: Pulmonary edema vs PNA Patient intubated and on mechanical ventilation. Patient noted to be in atrial fibrillation. He was intermittently agitated. Patient subsequently placed on Precedex drip. Good urine output over the past 24 hours. No recorded fever. Physical Examination - Vital Signs Temperature: 96.8 F Blood Pressure: 131/50 Pulse: 93 Respirations: 24 Pulse Ox (%): 98 Assessment And Plan - Plan Physical Exam General: Awake, agitated, Acute distress HEENT: Atraumatic, Normocephalic Neck: Supple Respiratory: Clear BBS, on nasal cannula Cardiovascular: Normal pulses, RRR, Normal S1 S2 Capillary refill: <2 Seconds Gastrointestinal: Normal bowel sounds, Distended (Obese) Musculoskeletal: No clubbing, Other (Cobblestone papules BLE) Integumentary: Skin breakdown (BLE) Neurological: Normal speech, Normal tone Vitals Reviewed Problem list Acute Hypercarbic Respiratory failure 2/2 pulmonary Edema vs PNA Respiratory acidosis Hyponatremia 2/2 Fluid volume overload Nausea/vomiting Diabetes Mellitus- IDDM HTN verrucous cobblestone papules Debilitated Assessment and Plan Acute Hypercarbic Respiratory failure 2/2 pulmonary Edema vs PNA Respiratory acidosis Agitation Hyponatremia 2/2 Fluid volume overload Nausea/vomiting Patient intubated and placed on mechanical ventilation 11/02. Bronchodilators Pulmonary consulted Empiric antibiotics-IV Levaquin Strict intake and output, daily weight Anticipating vent weaning trials to start tomorrow. Precedex Protonix for GI prophylaxis. Acute on chronic diastolic heart failure Cor pulmonale Obesity hypoventilation Diuresed with IV Lasix Echocardiogram result is pending. Monitor electrolytes and correct as needed. Atrial fibrillation I suspect atrial fibrillation is chronic Patient seen and evaluated by cardiology Dr. Centeno. Heart rate is currently controlled. Patient has coffee-ground aspirate from the OG tube. Will avoid anticoagulation for now. Diabetes Mellitus- IDDM Accucheck with SSI HTN Stable blood pressure Hydralazine as needed for BP spikes. Lymphedema with bilateral lower extremity lichenification. Morbid obesity. Local wound care Lymphedema wrap. DVT ppx Lovenox Full code Discharge Plan: Home Plan to discharge in: 48 Hours
--- NOTE | 2024-11-03 16:00 | P.CNS ---
Date of Consult: 11/03/24 Chief Complaint: Pulmonary edema vs PNA History of Present Illness: Patient is intubated so history taken from chart review and talking to admitting hospital team, patient with PMH of HTN, COPD, lymphedema presented with worsening SOB, GRIFFITH, found to have hypercapnic respiratory failure and currently intubated. Allergies iodine Allergy (Verified 11/02/24 00:16) Shortness of breath diphtheria,pertussis (acell),tetanu Adverse Reaction (Verified 11/02/24 04:54) Shortness of breath Penicillins Adverse Reaction (Verified 11/02/24 04:54) Shortness of breath Home medications list reviewed: Yes Home Medications: Aspirin [Aspirin EC] 81 mg PO DAILY 11/02/24 Carvedilol [Coreg] 25 mg PO BID 11/02/24 Clonidine HCl [Catapres*] 1 tape PO DAILY 11/02/24 Glimepiride 1 tab PO BID 11/02/24 Insulin Aspart Prot/Insuln Asp [Insulin Aspart Pro [id number] Pn] See Protocol SQ BID 11/02/24 Olmesartan/Hydrochlorothiazide [Olmesartan-Hctz 20-12.5 mg Tab] 1 tab PO DAILY 11/02/24 - Past Medical/Surgical History Diabetic: Yes -: DM- IDDM -: HTN -: Chronic wounds BLE -: MRSA to back -: skin graft to right leg - Social History Smoking Status: Current every day smoker Alcohol use: No CD- Drugs: No Caffeine use: Yes Place of Residence: Home Review of Systems is unable to be obtained (patient is sedated intubated) Physical Examination Temp Pulse Resp BP Pulse Ox 96.8 F 93 H 24 H 131/50 L 98 11/03/24 15:45 11/03/24 15:45 11/03/24 15:45 11/03/24 15:45 11/03/24 15:45 General: Other (intubated) HEENT: Atraumatic, Mucous membr. moist/pink, Sclerae nonicteric Neck: Supple, 2+ carotid pulse no bruit, No LAD, Without JVD or thyroid abnormality Respiratory: Dull, Crackles/rales Cardiovascular: Edema, Irregular heart rate/rhythm Gastrointestinal: Normal bowel sounds, No tenderness Musculoskeletal: No tenderness Integumentary: Other (significant lyphedema in both legs with very foul smell) Neurological: Normal gait, Normal speech, Normal tone, Normal affect Lymphatics: No axilla or inguinal lymphadenopathy - Problems (1) Hypercapnic respiratory failure Current Visit: Yes Status: Acute Plan: Patient echo was reviewed and shows normal LV systolic and diastolic function but elevated filling pressure would recommend IV diuresis with Lasix 40 mg IV bid Monitor input and output and electrolytes. (2) Atrial fibrillation Current Visit: Yes Status: Acute Plan: not sure if it is new onset, patient is currently rate controlled, continue to monitor.
[2024-11-03] MEDS: MIDAZOLAM HCL 2 MG/2 ML INJ IV PRN (16:48)
[2024-11-03] MEDS: POTASSIUM 25 MEQ EFFERV TAB PO ONE (17:14)
--- NOTE | 2024-11-03 18:14 | P.CNS ---
Date of Consult: 11/03/24 Reason for Consult: Respiratory failure patient is on a ventilator Chief Complaint: Pulmonary edema vs PNA History of Present Illness: Patient is 64 years of age with a history of pulmonary hypertension diabetes lymphedema mated with respiratory failure currently he is intubated hemodynamically stable patient was intubated due to progressive hypercapnia on propofol Allergies iodine Allergy (Verified 11/02/24 00:16) Shortness of breath diphtheria,pertussis (acell),tetanu Adverse Reaction (Verified 11/02/24 04:54) Shortness of breath Penicillins Adverse Reaction (Verified 11/02/24 04:54) Shortness of breath Home Medications: Aspirin [Aspirin EC] 81 mg PO DAILY 11/02/24 Carvedilol [Coreg] 25 mg PO BID 11/02/24 Clonidine HCl [Catapres*] 1 tape PO DAILY 11/02/24 Glimepiride 1 tab PO BID 11/02/24 Insulin Aspart Prot/Insuln Asp [Insulin Aspart Pro [id number] Pn] See Protocol SQ BID 11/02/24 Olmesartan/Hydrochlorothiazide [Olmesartan-Hctz 20-12.5 mg Tab] 1 tab PO DAILY 11/02/24 - Past Medical/Surgical History Diabetic: Yes -: DM- IDDM -: HTN -: Chronic wounds BLE -: MRSA to back -: skin graft to right leg - Social History Smoking Status: Current every day smoker Alcohol use: No CD- Drugs: No Caffeine use: Yes Place of Residence: Home Review of Systems is unable to be obtained Physical Examination Temp Pulse Resp BP Pulse Ox 97 F 91 H 32 H 165/101 H 92 11/03/24 16:00 11/03/24 17:00 11/03/24 17:25 11/03/24 17:00 11/03/24 17:25 General: Unresponsive Respiratory: Clear to auscultation bilaterally, Diminished Cardiovascular: Edema Gastrointestinal: Normal bowel sounds, Soft and benign Musculoskeletal: No clubbing Integumentary: Skin breakdown - Problems (1) Hypercapnic respiratory failure Current Visit: Yes Status: Acute Plan: Patient is 64 years of age admitted with hypercapnic respiratory failure known duration prior history here in this hospital progressively worse chest x-ray shows cardiomegaly mild interstitial changes chemistries all reviewed renal function is normal elevated bicarbonate chemistries mild hypokalemia x-ray reviewed and has a normal left ventricular ejection fraction signs reviewed blood pressure is elevated and is an active smoker he may have underlying COPD with obstructive sleep apnea he needs to be determined patient is currently on assist-control ventilation nation satisfactory 30% FiO2 will add bronchodilator therapy for now he is stable to be weaned off from the ventilator no evidence of DVT BNP 1625 torrential includes obesity hypoventilation syndrome obstructive sleep apnea COPD obstructive airways disease A-fib noted Qualifiers: Chronicity: unspecified Qualified Code(s): J96.92 - Respiratory failure, unspecified with hypercapnia
[2024-11-03] MEDS: carvediloL 25 MG TAB PO SCH (19:16)
[2024-11-03 20:01] LABS: Thyroid Stimulating Hormone 1.23 uIU/mL (0.358-3.740)
[2024-11-03] MEDS: IPRATROPIUM BROM 0.5MG/2.5ML NEB SCH (20:12)
[2024-11-03] MEDS: ARFORMOTEROL TARTRATE 15 MCG/2 ML VIAL.NEB NEB SCH (20:12)
[2024-11-03] MEDS ORDERED: HOME MED 1 EA UNK (Glimepiride [Glimepiride] 4 MG Tablet) PO SCH (21:00)
[2024-11-03] MEDS: INSULIN GLARGINE 100 UNIT/ML SQ SCH (21:03)
[2024-11-03] MEDS: SPIRONOLACTONE 25 MG TABLET PO SCH (21:04)
[2024-11-04 05:22] LABS: Absolute Lymphocytes (CBC) 0.5 K/uL (0.7-4.9); Absolute Monocytes 0.7 K/uL (0.1-1.3); Absolute Neutrophil 5.5 K/uL (1.8-8.0); Basophils % 0.3 % (0-1.3); Lymphocytes % 8.1 % (15.3-44.8); MCH 25.6 pg (27.0-35.0); MCHC 31.6 g/dL (32.0-36.0); MPV 8.4 fL (7.6-11.3); Monocytes % 10.5 % (3.3-12.3); Neutrophils % 81.1 % (41.7-73.7); Nucleated Red Blood Cells % 0.1 % (0-0); Platelets 215 thou/uL (152-406); RBC Red Blood Cell Count 5.07 M/uL (4.33-5.43); Red Cell Distribution Width 17.6 % (12.1-15.2)
[2024-11-04 05:36] LABS: Anion Gap 6.8 mEq/L (5.0-15.0); Magnesium 2.2 mg/dL (1.6-2.4); Phosphorus 1.7 mg/dL (2.5-4.9); Potassium 3.8 mEq/L (3.5-5.1)
[2024-11-04] MEDS: POTASSIUM PHOS IN 0.9 % NACL 15 MMOL/250 ML BAG IV ONE (06:29)
[2024-11-04] MEDS: ASPIRIN EC 81 MG TAB PO SCH (07:58)
[2024-11-04] MEDS: GLIMEPIRIDE 2 MG TABLET PO SCH (07:59)
[2024-11-04] MEDS: cloNIDine HCL 0.1 MG TAB PO SCH (07:59)
[2024-11-04] MEDS ORDERED: HOME MED 1 EA UNK (Clonidine Hcl [Catapres*] 0.2 MG Tablet) PO SCH (09:00)
[2024-11-04] MEDS: FUROSEMIDE 40 MG/4 ML VIAL IV SCH (09:39)
[2024-11-04 10:00] LABS: Arterial Blood Carboxyhemoglob 1.3 % (0-1.5); Blood Gas Oxyhemoglobin 90.8 % (94-97); Blood Gas THB 13.5 g/dl (12-18); Blood O2 Saturation 92.7 % (92-98.5)
[2024-11-04] MEDS: FENTANYL CITR 100 MCG/2 ML IV PRN ×3 (10:00→19:11)
--- NOTE | 2024-11-04 14:02 | P.PN ---
Subjective Date of Service: 11/04/24 Chief Complaint: Pulmonary edema vs PNA Patient is intubated, sedated and on mechanical ventilation. He failed spontaneous breathing trial this morning. He remains in atrial fibrillation. Patient is on Precedex drip. No recorded fever. Physical Examination - Vital Signs Temperature: 98.1 F Blood Pressure: 152/100 Pulse: 94 Respirations: 23 Pulse Ox (%): 99 Assessment And Plan - Plan Physical Exam General: Awake, agitated, sedated, morbidly obese HEENT: Atraumatic, Normocephalic Neck: Supple Respiratory: Clear BBS, on nasal cannula Cardiovascular: Normal pulses, RRR, Normal S1 S2 Capillary refill: <2 Seconds Gastrointestinal: Normal bowel sounds, Distended (Obese) Musculoskeletal: No clubbing, Other (Cobblestone papules BLE) Integumentary: Skin breakdown (BLE) Neurological: Normal speech, Normal tone Vitals Reviewed Problem list Acute Hypercarbic Respiratory failure 2/2 pulmonary Edema vs PNA Respiratory acidosis Hyponatremia 2/2 Fluid volume overload Nausea/vomiting Diabetes Mellitus- IDDM HTN verrucous cobblestone papules Debilitated Assessment and Plan Acute Hypercarbic Respiratory failure 2/2 pulmonary Edema vs PNA Respiratory acidosis Agitation Hyponatremia 2/2 Fluid volume overload Nausea/vomiting Patient intubated and placed on mechanical ventilation 11/02. Continue mechanical ventilation Bronchodilators Pulmonary input appreciated Continue IV Levaquin Intake and output, daily weight Daily weaning trial Precedex Protonix for GI prophylaxis. Acute on chronic diastolic heart failure Cor pulmonale Obesity hypoventilation Diuresed with IV Lasix Echocardiogram result is pending. Monitor electrolytes and correct as needed. Atrial fibrillation I suspect atrial fibrillation is chronic Patient seen and evaluated by cardiology Dr. Centeno. Heart rate is currently controlled. Patient has coffee-ground aspirate from the OG tube. Will avoid anticoagulation for now. Diabetes Mellitus- IDDM Accucheck with SSI HTN Stable blood pressure Hydralazine as needed for BP spikes. Lymphedema with bilateral lower extremity lichenification. Morbid obesity. Local wound care Lymphedema wrap. General surgery Dr. Arnold input appreciated. DVT ppx: Lovenox Full code
[2024-11-04] MEDS ORDERED: carvediloL 12.5 MG TAB PO SCH (18:16)
[2024-11-05 05:12] LABS: Absolute Lymphocytes (CBC) 1.3 K/uL (0.7-4.9); Absolute Monocytes 0.7 K/uL (0.1-1.3); Absolute Neutrophil 6.5 K/uL (1.8-8.0); Basophils % 0.2 % (0-1.3); Hematocrit 40.1 % (39.6-49.0); Hemoglobin 12.8 g/dL (13.6-17.9); Lymphocytes % 15.1 % (15.3-44.8); MCH 25.8 pg (27.0-35.0); MCV 80.6 fL (80-100); MPV 8.3 fL (7.6-11.3); Neutrophils % 76.7 % (41.7-73.7); Platelets 191 thou/uL (152-406); RBC Red Blood Cell Count 4.98 M/uL (4.33-5.43); Red Cell Distribution Width 17.7 % (12.1-15.2)
[2024-11-05 05:36] LABS: Phosphorus 2.2 mg/dL (2.5-4.9)
[2024-11-05] MEDS: KCL 20 MEQ/100 mL IVPB 20 MEQ/100 ML BAG IV SCH (06:27)
[2024-11-05] MEDS: OLMESARTAN PO SCH (09:00)
[2024-11-05] MEDS: HYDROCHLOROTHIAZIDE PO SCH (09:00)
[2024-11-05] MEDS: [UNRECOGNIZED DRUG - OTHER] PO SCH (09:00)
[2024-11-05] MEDS: levoFLOXacin 750 MG TAB FT SCH (09:35)
[2024-11-05] MEDS: POTASSIUM PHOS IN 0.9 % NACL 15 MMOL/250 ML BAG IV ONE (09:36)
--- NOTE | 2024-11-05 12:40 | P.PN ---
Subjective Date of Service: 11/05/24 Chief Complaint: Pulmonary edema vs PNA No major changes from yesterday. Patient remained intubated and on mechanical ventilation and sedated. He remains in atrial fibrillation. No recorded fever. Physical Examination - Vital Signs Temperature: 98.2 F Blood Pressure: 126/86 Pulse: 94 Respirations: 22 Pulse Ox (%): 92 Assessment And Plan - Plan Physical Exam General: Awake, agitated, sedated, morbidly obese HEENT: Atraumatic, Normocephalic Neck: Supple Respiratory: Clear BBS, on nasal cannula Cardiovascular: Normal pulses, RRR, Normal S1 S2 Capillary refill: <2 Seconds Gastrointestinal: Normal bowel sounds, Distended (Obese) Musculoskeletal: No clubbing, Other (Cobblestone papules BLE) Integumentary: Skin breakdown (BLE) Neurological: Normal speech, Normal tone Vitals Reviewed Problem list Acute Hypercarbic Respiratory failure 2/2 pulmonary Edema vs PNA Respiratory acidosis Hyponatremia 2/2 Fluid volume overload Nausea/vomiting Diabetes Mellitus- IDDM HTN verrucous cobblestone papules Debilitated Assessment and Plan Acute Hypercarbic Respiratory failure 2/2 pulmonary Edema vs PNA Respiratory acidosis Agitation Hyponatremia 2/2 Fluid volume overload Nausea/vomiting Continue mechanical ventilation Bronchodilators Pulmonary input appreciated Continue IV Levaquin Intake and output, daily weight Pulmonary Dr. Wharton is following Continue sedation with Precedex Protonix for GI prophylaxis. Weaning protocols tomorrow. Continue OG tube feeding Acute on chronic diastolic heart failure Cor pulmonale Obesity hypoventilation Diuresed with IV Lasix Echocardiogram result is pending. Monitor electrolytes and correct as needed. Atrial fibrillation I suspect atrial fibrillation is chronic Patient seen and evaluated by cardiology Dr. Centeno. Heart rate is currently controlled. Patient had coffee-ground aspirate from the OG tube. Hemoglobin has been stable. Start full dose Lovenox for A-fib anticoagulation. Continue Coreg. Diabetes Mellitus- IDDM Accucheck with SSI HTN Blood pressure has been running soft. Monitor Lymphedema with bilateral lower extremity lichenification. Morbid obesity. Local wound care Lymphedema wrap. General surgery Dr. Arnold input appreciated. DVT ppx: Lovenox Full code
[2024-11-06 05:18] LABS: Absolute Eosinophils 0.1 K/uL (0-0.5); Absolute Lymphocytes (CBC) 1.2 K/uL (0.7-4.9); Absolute Monocytes 0.8 K/uL (0.1-1.3); Absolute Neutrophil 7.3 K/uL (1.8-8.0); Basophils % 0.3 % (0-1.3); Hematocrit 39.1 % (39.6-49.0); Hemoglobin 12.6 g/dL (13.6-17.9); Lymphocytes % 12.2 % (15.3-44.8); MCH 25.8 pg (27.0-35.0); MCHC 32.2 g/dL (32.0-36.0); MCV 80.2 fL (80-100); MPV 8.2 fL (7.6-11.3); Monocytes % 8.7 % (3.3-12.3); Neutrophils % 77.8 % (41.7-73.7); Platelets 175 thou/uL (152-406); RBC Red Blood Cell Count 4.87 M/uL (4.33-5.43); Red Cell Distribution Width 17.6 % (12.1-15.2)
[2024-11-06 05:35] LABS: Anion Gap 8.1 mEq/L (5.0-15.0); Phosphorus 2.7 mg/dL (2.5-4.9); Potassium 3.1 mEq/L (3.5-5.1)
[2024-11-06] MEDS: NA CHLORIDE 0.9% 100 ML ONE (05:57)
[2024-11-06] MEDS: KCL 20 MEQ/100 mL IVPB 20 MEQ/100 ML BAG IV SCH (05:57)
[2024-11-06] MEDS ORDERED: POTASSIUM CL 40 MEQ in NA CHLORIDE 0.9% 500 ML IV SCH (08:00)
[2024-11-06] MEDS: KCL 20 MEQ/100 mL IVPB 100 ML IV ONE (08:10)
[2024-11-06] MEDS: FUROSEMIDE 40 MG/4 ML VIAL IV SCH ×2 (08:11→12:07)
--- NOTE | 2024-11-06 09:19 | RAD REPORT ---
Procedure: Chest Single View HISTORY: Cough COMPARISON: November 03, 2024 FINDINGS: The lungs appear clear of acute infiltrate. No significant pleural effusion noted. The heart is mildly to moderately enlarged. Endotracheal tube with its tip 2.7 cm above the top of the aortic arch. Nasogastric tube within the stomach.
--- NOTE | 2024-11-06 09:59 | P.PN ---
Subjective Date of Service: 11/06/24 Chief Complaint: Pulmonary edema vs PNA Subjective: No new changes (still intubated) Review of Systems is unable to be obtained (patient is sedated and intubated) Physical Examination - Vital Signs Temperature: 97.6 F Blood Pressure: 139/80 Pulse: 82 Respirations: 18 Pulse Ox (%): 96 - Physical Exam General: Other (intubated and sedated) HEENT: Atraumatic, PERRLA, EOMI Neck: Supple, JVD not distended Respiratory: Diminished, Crackles/rales Cardiovascular: Irregular heart rate/rhythm Gastrointestinal: Normal bowel sounds Musculoskeletal: Swelling, Erythema, Tenderness (bilateral lower extremities) Assessment And Plan - Current Problems (Diagnosis) (1) Hypercapnic respiratory failure Current Visit: Yes Status: Acute Plan: Patient echo was reviewed and shows normal LV systolic and diastolic function but elevated filling pressure would recommend IV diuresis with Lasix 40 mg IV TID Monitor input and output and electrolytes. Qualifiers: Chronicity: unspecified Qualified Code(s): J96.92 - Respiratory failure, unspecified with hypercapnia (2) Atrial fibrillation Current Visit: Yes Status: Acute Plan: not sure if it is new onset, patient is currently rate controlled, continue to monitor.
--- NOTE | 2024-11-06 10:59 | EKG ---
Test Date: 2024-11-01 Test Time: 15:26:31 [employer] Operator: MEASUREMENT RESULTS: Intervals: Rate: 110 [place]: QRSD: 92 QT: 324 QTc: 438 [place]: P: [place]: QRS: 58 T: 71 INTERPRETIVE STATEMENTS: Atrial fibrillation Anteroseptal infarct, age undetermined Abnormal ECG Compared to ECG 07/12/2007 12:02:26 Myocardial infarct finding now present Sinus rhythm no longer present Sinus arrhythmia no longer present Electronically Signed On 11-06-24 10:53:00 [employer] by Dylan Centeno
--- NOTE | 2024-11-06 12:19 | P.PN ---
Subjective Date of Service: 11/06/24 Chief Complaint: Respiratory failure Patient's condition is stable hemodynamically stable oxygenation satisfactory on IMV of 30% however patient was not able to tolerate a weaning trial patient is on max doses of Precedex Review of Systems is unable to be obtained Physical Examination - Vital Signs Temperature: 97.6 F Blood Pressure: 137/97 Pulse: 81 Respirations: 21 Pulse Ox (%): 97 - Physical Exam General: Unresponsive Respiratory: Clear to auscultation bilaterally Cardiovascular: Normal S1 S2, Edema Assessment And Plan - Current Problems (Diagnosis) (1) Hypercapnic respiratory failure Current Visit: Yes Status: Acute Plan: Respiratory failure unable to wean patient off the ventilator echocardiogram is normal labs reviewed mild hypokalemia potassium 3.1 white count is normal plan to replace potassium decrease the dose of Lasix for now patient is on spir onolactone x-ray is clear due to elevated filling pressure Lasix dose was increased by cardiology will try weaning the patient again tomorrow chest x-ray clear endotracheal endotracheal tube satisfactory Qualifiers: Chronicity: unspecified Qualified Code(s): J96.92 - Respiratory failure, unspecified with hypercapnia
[2024-11-06] MEDS ORDERED: NA CHLORIDE 0.9% IV SCH ×2 (14:00→15:00)
[2024-11-06] MEDS ORDERED: DEXMEDETOMIDINE HCL IV SCH ×2 (14:00→15:00)
--- NOTE | 2024-11-06 14:34 | P.PN ---
Subjective Date of Service: 11/06/24 Chief Complaint: Respiratory failure No major issues overnight. Patient remained intubated and on mechanical ventilation and sedated. He failed breathing trial today. He remains in atrial fibrillation. He also has a positive fluid balance. Physical Examination - Vital Signs Temperature: 97.6 F Blood Pressure: 123/80 Pulse: 85 Respirations: 17 Pulse Ox (%): 95 Assessment And Plan - Plan Physical Exam General: sedated, morbidly obese HEENT: ET Tube, OG tube Neck: Supple Respiratory: Bilateral upper airway transmitted sounds. Cardiovascular: Normal pulses, irregularly irregular, Normal S1 S2 Capillary refill: <2 Seconds Gastrointestinal: Normal bowel sounds, obese abdomen Musculoskeletal: No clubbing, bilateral lower extremity lymphedema with skin lichenification and xerosis. Integumentary: Bilateral lower extremity skin liquefication and xerosis Neurological: Normal speech, Normal tone Vitals Reviewed Problem list Acute Hypercarbic Respiratory failure 2/2 pulmonary Edema vs PNA Respiratory acidosis Hyponatremia 2/2 Fluid volume overload Nausea/vomiting Diabetes Mellitus- IDDM HTN verrucous cobblestone papules Debilitated Assessment and Plan Acute Hypercarbic Respiratory failure 2/2 pulmonary Edema vs PNA Respiratory acidosis Agitation Hyponatremia 2/2 Fluid volume overload Nausea/vomiting Continue mechanical ventilation Bronchodilators Pulmonary input appreciated Continue IV Levaquin Intake and output, daily weight Pulmonary Dr. Wharton is following Sedation with propofol versus Precedex Protonix for GI prophylaxis. Continue weaning trials. Continue OG tube feeding Acute on chronic diastolic heart failure Cor pulmonale Obesity hypoventilation Diuresed with IV Lasix. Cardiology input appreciated. Continue IV Lasix and titrate. Echocardiogram shows normal EF and elevated filling pressures. Monitor electrolytes and correct as needed. Atrial fibrillation Likely chronic Patient seen and evaluated by cardiology Dr. Centeno. Heart rate is currently controlled. Patient initially had coffee-ground aspirate from the OG tube. Hemoglobin has been stable. A-fib anticoagulation by cardiology. Continue Coreg. Diabetes Mellitus- IDDM Accucheck with SSI HTN Patient is currently normotensive. Monitor Lymphedema with bilateral lower extremity lichenification. Morbid obesity. Local wound care Lymphedema wrap. General surgery Dr. Arnold input appreciated. DVT ppx: Lovenox Full code
[2024-11-06] MEDS: NA CHLORIDE 0.9% IV SCH (16:45)
[2024-11-06] MEDS: DEXMEDETOMIDINE HCL IV SCH (16:45)
--- NOTE | 2024-11-07 07:41 | RAD REPORT ---
EXAMINATION: ONE VIEW CHEST XR CLINICAL INDICATION: Rep failure TECHNIQUE: Frontal chest projection is submitted. Examination is limited by patient positioning and t echnique. COMPARISON: 11/06/2024 FINDINGS: Tip of the endotracheal tube is at the level of the superior aortic arch. Enteric tube tip is in the upper abdomen, not included on the projection. Bilateral pulmonary opacities are again noted similar to slightly progressive since comparison study. The heart is moderately enlarged.
[2024-11-07 08:04] LABS: Hematocrit 38.4 % (39.6-49.0); Hemoglobin 12.4 g/dL (13.6-17.9); MCHC 32.3 g/dL (32.0-36.0); MCV 80.4 fL (80-100); MPV 8.7 fL (7.6-11.3); Platelets 164 thou/uL (152-406); RBC Red Blood Cell Count 4.77 M/uL (4.33-5.43); Red Cell Distribution Width 17.8 % (12.1-15.2)
[2024-11-07 08:08] LABS: Albumin 1.8 g/dL (3.4-5.0); Anion Gap 5.2 mEq/L (5.0-15.0); Magnesium 2.1 mg/dL (1.6-2.4); Phosphorus 2.8 mg/dL (2.5-4.9); Potassium 3.2 mEq/L (3.5-5.1)
[2024-11-07] MEDS: POTASSIUM 25 MEQ EFFERV TAB PO ONE (11:00)
[2024-11-07] MEDS: POTASSIUM 25 MEQ EFFERV TAB ONE (12:18)
--- NOTE | 2024-11-07 13:24 | P.PN ---
Subjective Date of Service: 11/07/24 Chief Complaint: Respiratory failure Unable to wean patient from the ventilator yesterday will try pressure support weaning today hemodynamically stable Review of Systems is unable to be obtained Physical Examination - Vital Signs Temperature: 97.8 F Blood Pressure: 140/87 Pulse: 86 Respirations: 21 Pulse Ox (%): 97 - Physical Exam General: Unresponsive Respiratory: Clear to auscultation bilaterally, Diminished Cardiovascular: Regular rate/rhythm, Edema - Studies Microbiology Data (last 24 hrs): 11/01/24 15:18 Blood - Blood Aerobic Blood Culture - Final No growth in 5 days. 11/01/24 15:18 Blood - Blood Anaerobic Blood Culture - Final No growth in 5 days. 11/01/24 15:06 Blood - Blood Aerobic Blood Culture - Final No growth in 5 days. 11/01/24 15:06 Blood - Blood Anaerobic Blood Culture - Final No growth in 5 days. Assessment And Plan - Current Problems (Diagnosis) (1) Hypercapnic respiratory failure Current Visit: Yes Status: Acute Plan: Patient is is hemodynamically stable Lasix was increased yesterday chest x-ray clear oxygenation satisfactory labs are pending will try weaning with pressure support ventilation started at 30 and decreasing it slowly Qualifiers: Chronicity: unspecified Qualified Code(s): J96.92 - Respiratory failure, unspecified with hypercapnia
--- NOTE | 2024-11-07 13:24 | P.PN ---
Date of Service: 11/07/24 Subjective: unable to wean vent yesterday remains intubated and sedated moving all extremities spontaneously. Nods head when asked afebrile ROS: unable to full obtain d/t sedation/intubated Physical Exam: GEN: intubated, sedated CV: Regular rate and rhythm. chronic lymphedema Pulm: on vent, 35% FiO2 ABD: soft, nondistended Integumentary: bilateral lower extremity lymphedema with skin lichenification and xerosis; Legs wrapped bilaterally Neuro: Sedated ET Tube, OG tube Problem List: Acute Hypercarbic Respiratory failure secondary to Pulmonary edema Respiratory acidosis Hyponatremia secondary to volume overload Nausea/vomiting Acute on chronic diastolic heart failure Cor pulmonale Obesity hypoventilation Atrial fibrillation, chronic IDDM2 Hypertension Chronic Lymphedema with bilateral lower extremity lichenification. verrucous cobblestone papules Morbid obesity. Acute Hypercarbic Respiratory failure secondary to Pulmonary edema Respiratory acidosis Hyponatremia secondary to volume overload Nausea/vomiting on admission, presents with worsening SOB, lower extremity edema. Dr. Wharton, pulm is following continue IV lasix, PO spironolactone IV levaquin dc'd Protonix for GI prophylaxis Continue OG tube feeding IV lasix increased to 40 mg q8h (11/06) wean vent/sedation as tolerated Continue weaning trials. Unable to wean off vent yesterday remains intubated and sedated repeat CXR (11/07): bilateral pulmonary opacities similar to slightly progressive continue precedex Acute on chronic diastolic heart failure Cor pulmonale Obesity hypoventilation Cardiology is following Continue IV lasix; increased to 40 mg q8h (11/06) CXR (11/06): lungs clear of acute infiltrate. No significant effusion repeat CXR (11/07): bilateral pulmonary opacities similar to slightly progressive Echo (11/01): 55-60%EF, elevated filling pressure, trace TR Monitor electrolytes and correct as needed. Atrial fibrillation, chronic Likely chronic Cardiology is following Heart rate is currently controlled. Continue Coreg. IDDM2 Accucheck with SSI Hypertension continue home coreg Chronic Lymphedema with bilateral lower extremity lichenification. Verrucous cobblestone papules Morbid obesity. Continue local wound care with lidex cream Keep legs wrapped. Dr. Arnold, general surgeon consulted f/u outpatient at Lymphedema clinic VTE: Lovenox Code: Full Continue ICU level of care Time Spent Managing Pts Care (In Minutes): 55
[2024-11-08 05:54] LABS: Albumin 1.8 g/dL (3.4-5.0); Anion Gap 3.1 mEq/L (5.0-15.0); Magnesium 2.1 mg/dL (1.6-2.4); Phosphorus 2.6 mg/dL (2.5-4.9); Potassium 3.1 mEq/L (3.5-5.1)
[2024-11-08] MEDS: INSULIN REGULAR (HUMAN) 100 UNIT/ML SQ SCH (06:42)
--- NOTE | 2024-11-08 08:19 | P.PN ---
Date of Service: 11/08/24 Subjective: remains intubated and sedated intermittently following some commands. Moving all extremities. in a-fib; rate controlled in 80-90s afebrile ROS: unable to full obtain d/t sedation/intubated Physical Exam: GEN: intubated, sedated CV: Irregularly Irregular rate and rhythm. chronic lymphedema Pulm: on vent, 30% FiO2, diminished bilaterally ABD: soft, nondistended Integumentary: bilateral lower extremity lymphedema with skin lichenification and xerosis; Legs wrapped bilaterally Neuro: lightly sedated, moves extremities, follows some basic commands ET Tube, OG tube Problem List: Acute Hypercarbic Respiratory failure secondary to Pulmonary edema Respiratory acidosis Hyponatremia secondary to volume overload Nausea/vomiting Acute on chronic diastolic heart failure Cor pulmonale Obesity hypoventilation Atrial fibrillation, chronic IDDM2 Hypertension Chronic Lymphedema with bilateral lower extremity lichenification. verrucous cobblestone papules Morbid obesity. Acute Hypercarbic Respiratory failure secondary to Pulmonary edema Respiratory acidosis Hyponatremia secondary to volume overload Nausea/vomiting on admission, presents with worsening SOB, lower extremity edema. continue IV lasix, PO spironolactone IV levaquin dc'd Protonix for GI prophylaxis Continue OG tube feeding IV lasix increased to 40 mg q8h (11/06) wean vent/sedation as tolerated Continue weaning trials. Will attempt to extubate later today per pulm remains intubated and sedated repeat CXR (11/07): bilateral pulmonary opacities similar to slightly progressive continue precedex Acute on chronic diastolic heart failure Cor pulmonale Obesity hypoventilation Cardiology is following Continue IV lasix; increased to 40 mg q8h (11/06) CXR (11/06): lungs clear of acute infiltrate. No significant effusion repeat CXR (11/07): bilateral pulmonary opacities similar to slightly progressive Echo (11/01): 55-60%EF, elevated filling pressure, trace TR Monitor electrolytes and correct as needed. Atrial fibrillation, chronic Likely chronic Cardiology is following Heart rate is currently controlled. Continue Coreg. IDDM2 Accucheck with SSI- increased to aggressive semglee increased to 30u BID 11/08 adjust tube feeds Hypertension continue home coreg Chronic Lymphedema with bilateral lower extremity lichenification. Verrucous cobblestone papules Morbid obesity. Continue local wound care with lidex cream Keep legs wrapped. Dr. Arnold, general surgeon consulted f/u outpatient at Lymphedema clinic VTE: Lovenox Code: Full Continue ICU level of care Time Spent Managing Pts Care (In Minutes): 55
--- NOTE | 2024-11-08 08:32 | P.PN ---
Subjective Date of Service: 11/08/24 Chief Complaint: Respiratory failure Patient is currently stable no changes overnight blood sugars elevated Review of Systems is unable to be obtained Physical Examination - Vital Signs Temperature: 97.1 F Blood Pressure: 145/84 Pulse: 92 Respirations: 16 Pulse Ox (%): 94 - Physical Exam General: Alert Respiratory: Clear to auscultation bilaterally, Diminished Cardiovascular: No edema, Edema Assessment And Plan - Current Problems (Diagnosis) (1) Hypercapnic respiratory failure Current Visit: Yes Status: Acute Plan: Patient admitted with hypoxic hypercapnic respiratory failure doing better hemodynamically stable will plan to wean and extubate today sugars are high increase the dose of insulin patient is also hypokalemic I suspect is from the Lasix as he is on minimal oxygen failed spontaneous breathing trial yesterday if he remains stable we will plan to extubate him Qualifiers: Chronicity: unspecified Qualified Code(s): J96.92 - Respiratory failure, unspecified with hypercapnia
[2024-11-08] MEDS: KCL 20 MEQ/100 mL IVPB 20 MEQ/100 ML BAG IV SCH (08:36)
[2024-11-08] MEDS: INSULIN GLARGINE 100 UNIT/ML SQ SCH (08:49)
--- NOTE | 2024-11-08 11:10 | P.PN ---
Subjective Date of Service: 11/08/24 Chief Complaint: Respiratory failure Subjective: No new changes (patient still intubated) Review of Systems is unable to be obtained (intubated) Physical Examination - Vital Signs Temperature: 97.1 F Blood Pressure: 144/80 Pulse: 97 Respirations: 18 Pulse Ox (%): 98 - Physical Exam General: Other (intubated) HEENT: Atraumatic, PERRLA, EOMI Neck: Supple, JVD not distended Respiratory: Clear to auscultation bilaterally, Normal air movement Cardiovascular: Regular rate/rhythm, Normal S1 S2 Gastrointestinal: Normal bowel sounds, No tenderness Musculoskeletal: No tenderness Integumentary: No rashes Neurological: Normal speech, Normal tone, Normal affect Lymphatics: No axilla or inguinal lymphadenopathy - Studies Medications List Reviewed: Yes Assessment And Plan - Current Problems (Diagnosis) (1) Hypercapnic respiratory failure Current Visit: Yes Status: Acute Plan: Patient echo was reviewed and shows normal LV systolic and diastolic function but elevated filling pressure Continue Lasix 40 mg IV TID Monitor input and output and electrolytes. Qualifiers: Chronicity: unspecified Qualified Code(s): J96.92 - Respiratory failure, unspecified with hypercapnia (2) Atrial fibrillation Current Visit: Yes Status: Acute Plan: not sure if it is new onset, patient is currently rate controlled, continue to monitor.
[2024-11-08] MEDS ORDERED: INSULIN GLARGINE 100 UNIT/ML SQ SCH (21:00)
[2024-11-09 05:38] LABS: Hemoglobin 11.8 g/dL (13.6-17.9); MCH 25.7 pg (27.0-35.0); MCV 80.2 fL (80-100); MPV 9.3 fL (7.6-11.3); Platelets 196 thou/uL (152-406); RBC Red Blood Cell Count 4.61 M/uL (4.33-5.43); Red Cell Distribution Width 17.4 % (12.1-15.2)
[2024-11-09 05:58] LABS: Albumin 1.6 g/dL (3.4-5.0); Albumin/Globulin Ratio 0.3 (1.1-1.8); Anion Gap 6.3 mEq/L (5.0-15.0); Bilirubin Total 1.1 mg/dL (0.2-1.0); Globulin 5.3 g/dL (2.3-3.5); Magnesium 2.2 mg/dL (1.6-2.4); Phosphorus 2.7 mg/dL (2.5-4.9); Potassium 3.3 mEq/L (3.5-5.1); Protein, Total 6.9 g/dL (6.4-8.2)
--- NOTE | 2024-11-09 07:33 | P.PN ---
Date of Service: 11/09/24 Subjective: remains intubated and sedated nod head when asked. Moving all extremities. unable to wean off vent yesterday ENT to eval for trach placement lower extremity edema slightly improved ROS: unable to fully obtain d/t sedation/intubated Physical Exam: GEN: intubated, sedated CV: Irregularly Irregular rate and rhythm. chronic lymphedema Pulm: on vent, 30% FiO2, diminished bilaterally ABD: soft, nondistended Integumentary: bilateral lower extremity lymphedema with skin lichenification and xerosis; Legs wrapped bilaterally Neuro: lightly sedated, moves extremities, follows some basic commands ET Tube, OG tube Problem List: Acute Hypercarbic Respiratory failure secondary to Pulmonary edema Respiratory acidosis Hyponatremia secondary to volume overload Nausea/vomiting Acute on chronic diastolic heart failure Cor pulmonale Obesity hypoventilation Atrial fibrillation, chronic IDDM2 Hypertension Chronic Lymphedema with bilateral lower extremity lichenification. verrucous cobblestone papules Morbid obesity. Acute Hypercarbic Respiratory failure secondary to Pulmonary edema Respiratory acidosis Hyponatremia secondary to volume overload Nausea/vomiting on admission, presents with worsening SOB, lower extremity edema. continue IV lasix, PO spironolactone IV levaquin dc'd Protonix for GI prophylaxis Continue OG tube feeding repeat CXR (11/07): bilateral pulmonary opacities similar to slightly progressive IV lasix increased to 40 mg q8h (11/06) remains intubated and sedated Multiple unsuccessful attempt to wean off vent. Pulm recommending trach eval ENT consulted to eval for trach placement continue precedex no BM in several days / since admission, check KUB Acute on chronic diastolic heart failure Cor pulmonale Obesity hypoventilation Cardiology is following Continue IV lasix; increased to 40 mg q8h (11/06) CXR (11/06): lungs clear of acute infiltrate. No significant effusion repeat CXR (11/07): bilateral pulmonary opacities similar to slightly progressive Echo (11/01): 55-60%EF, elevated filling pressure, trace TR Monitor electrolytes and correct as needed. Atrial fibrillation, chronic Likely chronic Cardiology is following Heart rate is currently controlled. Continue Coreg. IDDM2 Accucheck with SSI- increased to aggressive semglee increased to 30u BID 11/08 adjust tube feeds Hypertension continue home coreg Chronic Lymphedema with bilateral lower extremity lichenification. Verrucous cobblestone papules Morbid obesity. Continue local wound care with lidex cream Keep legs wrapped. Dr. Arnold, general surgeon consulted f/u outpatient at Lymphedema clinic VTE: Lovenox Code: Full Continue ICU level of care Time Spent Managing Pts Care (In Minutes): 55
[2024-11-09] MEDS: KCL 20 MEQ/100 mL IVPB 20 MEQ/100 ML BAG IV SCH (08:40)
--- NOTE | 2024-11-09 10:01 | P.PN ---
Subjective Date of Service: 11/09/24 Chief Complaint: Respiratory failure Subjective: No new changes Review of Systems is unable to be obtained Physical Examination - Vital Signs Temperature: 97.9 F Blood Pressure: 137/79 Pulse: 97 Respirations: 18 Pulse Ox (%): 93 - Physical Exam General: Other (intubated) HEENT: Atraumatic, PERRLA, EOMI Neck: Supple, JVD not distended Respiratory: Clear to auscultation bilaterally, Normal air movement Cardiovascular: Regular rate/rhythm, Normal S1 S2 Gastrointestinal: Normal bowel sounds, No tenderness Musculoskeletal: No tenderness Integumentary: No rashes Neurological: Normal speech, Normal tone, Normal affect Lymphatics: No axilla or inguinal lymphadenopathy - Studies Medications List Reviewed: Yes Assessment And Plan - Current Problems (Diagnosis) (1) Hypercapnic respiratory failure Current Visit: Yes Status: Acute Plan: Patient echo was reviewed and shows normal LV systolic and diastolic function but elevated filling pressure Continue Lasix 40 mg IV TID continue aldactone Monitor input and output and electrolytes. Qualifiers: Chronicity: unspecified Qualified Code(s): J96.92 - Respiratory failure, unspecified with hypercapnia (2) Atrial fibrillation Current Visit: Yes Status: Acute Plan: patient is currently rate controlled, continue to monitor. patient will need NOAC on discharge.
--- NOTE | 2024-11-09 10:14 | P.CNS ---
Date of Consult: 11/09/24 Reason for consultation: Tracheostomy placement per Dr. Wharton HPI: 64-year-old obese male brought by EMS to ER with shortness of breath on November 01 with associated cough and congestion with recent worsening of leg swelling for about 3 days. He was initially admitted to the floor for management of CHF exacerbation/pulmonary edema versus pneumonia but subsequently required transfer to the ICU with placement on BiPAP. He continued to be agitated and restless with worsening respiratory acidosis and CO2 retention requiring intubat ion on November 02. On November 06, the patient was hemodynamically stable with satisfactory oxygenation on IMV at 30% FiO2 but did not tolerate weaning trial. On November 07, he tried pressure support weaning and subsequent spontaneous breathing trials but is noted to nursing staff to become hypoxic and tachypneic during these efforts. Due to intubation for >1 week, tracheostomy consult was requested by admitting/ICU team. Patient's medical records are reviewed including admission and progress notes by associated care team. Of note, the patient was unable to have a CT PE protocol, presumably due to BMI/weight. The patient's lower extremity ultrasound showed normal triphasic flow proximal to the popliteal artery. Further examination for DVT or other vascular compromise was difficult to assess due to patient's clinical condition radiology report. He was also noted to have atrial fibrillation though the acuity of this is uncertain. Due to ground coffee aspirated from the OG tube, anticoagulation was initially deferred and was rate controlled. The patient's echocardiogram showed normal left ventricular systolic and diastolic function but elevated filling pressure and diuresis with Lasix was recommended by cardiology. PMH: Hypertension, diabetes Social history: 1 PPD cigarettes Current medication list: Acetaminophen, albuterol, Brovana, aspirin, carvedilol, clonidine, Precedex, Lovenox, fentanyl, Lidex cream, Lasix, glimepiride, insulin, Zofran, pantoprazole, spironolactone. All data is obtained through the medical record and through conversation with nursing staff as the patient is unable to provide information due to his medical condition including sedation and intubation. No surrogate medical decision maker is available at the bedside and nursing staff reports he has not had any visitors. Data: Since admission the patient's WBC count has been normal but today it increased to 13.9. His hemoglobin has been in the low range and most recently is 11.8. Platelet count is normal and most recently 196. Initial coagulation studies showed mildly elevated PTT but normal INR. Last blood gas was performed on September 04 which showed resolution of of respiratory acidosis with persistent the increased but improving pCO2 and low pO2 on 30% FiO2. Chemistry currently demonstrates normal creatinine, elevated glucose, normal TSH, admission procalcitonin was negative. His UA was extremely turbid with high levels of blood, ketones and glucose and loaded with bacteria but urine culture was not performed. Influenza test on admission was negative. Blood cultures on admission were negative. Exam: Patient is currently intubated with an FiO2 of 45% and PEEP of 5 with oxygen saturations in the high 90s. He is obese but the laryngeal cartilage is easily palpated. In the current position there is approximately 1 fingerbreadth between the cricoid cartilage and sternal notch but positioning is not optimized for tracheostomy surgery. Assessment: Respiratory failure and prolonged intubation Recommendations: From a medical perspective, the patient is appropriate for tracheostomy and would require holding of Lovenox and tube feeds in preparation for surgery. Complicating this patient's situation is lack of well-defined surrogate medical decision maker. The patient is unable to sign surgical consent due to his medical status. Contact listed on demographic sheet is a friend who has been in contact with case management but does not to my knowledge hold medical power of criminal defense attorney. Chart review indicates the wrapper caser has been making efforts to contact that friend with an effort to identify an appropriate medical surrogate decision maker. First preference would be the individual with formalized medical power of criminal defense attorney. In absence of this, preference would be a spouse, with subsequent choice of an adult child. Third choice would include an adult sibling or parent. Other options could include signature of 2 physicians if no surrogate decision maker can be identified. Since the patient is currently medically stable from an airway standpoint with current intubation, tracheostomy in this case would not be considered emergent. Care coordination was made with the INSURANCE ACCOUNT MANAGER in regards to this dilemma. The care team will continue efforts to establish a surrogate medical decision maker to provide surgical consent. Until that time, decision for surgery is on hold. Please contact Dr. Adler once surrogate decision maker is identified so that we can proceed with scheduling surgery. If no surrogate decision maker is identified by November 13, the care team will discuss proceeding with consent by physician agreement.
--- NOTE | 2024-11-09 12:18 | EKG ---
Test Date: 2024-11-02 Test Time: 12:21:12 Billet Header: GREGORIO MEASUREMENT RESULTS: Intervals: Rate: 94 MN: QRSD: 106 QT: 380 QTc: 475 [place]: P: MN: QRS: 73 T: 30 INTERPRETIVE STATEMENTS: Atrial fibrillation with premature ventricular or aberrantly conducted complexes Abnormal ECG Compared to ECG 11/01/2024 15:26:31 Ventricular premature complex(es) now present Myocardial infarct finding no longer present Electronically Signed On 11-09-24 12:14:09 WHIZZER OPERATOR by Dylan Centeno
[2024-11-09] MEDS: FENTANYL CITR 100 MCG/2 ML IV PRN (17:54)
--- NOTE | 2024-11-09 18:19 | RAD REPORT ---
EXAM: AP view(s) of the abdomen Abdomen 1 View (KUB) HISTORY: eval distention, no BM in several days COMPARISON: 11/02/2024 FINDINGS: Distended bowel in the left lower quadrant. The bowel gas pattern cannot be adequately assessed as po rtions are not included in the field of view due to body habitus. There are some distended loops in the left lower quadrant which are only partially that could be dilated small bowel versus distended s igmoid colon. No significant formed stool is identified. The liver is likely enlarged. No suspicious calcifications are seen. No acute osseous abnormality. Other: n/a IMPRESSION: Question dilated small bowel in the left lower quadrant versus distended sigmoid. Much of the bowel is probably not included in the field of view due to the patient's body habitus and an enlarged liver.
[2024-11-10 06:21] LABS: Hematocrit 36.2 % (39.6-49.0); Hemoglobin 11.3 g/dL (13.6-17.9); MCH 25.4 pg (27.0-35.0); MCHC 31.3 g/dL (32.0-36.0); MCV 81.1 fL (80-100); MPV 9.6 fL (7.6-11.3); Platelets 207 thou/uL (152-406); RBC Red Blood Cell Count 4.47 M/uL (4.33-5.43); Red Cell Distribution Width 17.5 % (12.1-15.2)
[2024-11-10 06:44] LABS: Anion Gap 4.8 mEq/L (5.0-15.0); Magnesium 2.4 mg/dL (1.6-2.4); Potassium 3.8 mEq/L (3.5-5.1)
--- NOTE | 2024-11-10 07:34 | RAD REPORT ---
EXAMINATION: ONE VIEW CHEST XR CLINICAL INDICATION: vent TECHNIQUE: Frontal chest projection is submitted. Examination is limited by patient positioning and t echnique. COMPARISON: 11/07/2024, 11/06/2024 FINDINGS: Tip of the endotracheal tube is above the alfred, about 1 cm above the level of the superior aortic a rch. Enteric tube descends into the upper abdomen. Mild bilateral interstitial prominence is unchanged. Heart is mildly enlarged.
--- NOTE | 2024-11-10 08:28 | P.PN ---
Date of Service: 11/10/24 Subjective: remains intubated and sedated Unable to get consent for trach placement yesterday. Multiple attempts to get in contact with family/MPOA tube feeds held yesterday d/t residuals ROS: unable to fully obtain d/t sedation/intubated Physical Exam: GEN: intubated, sedated CV: Irregularly Irregular rate and rhythm. chronic lymphedema Pulm: on vent, 35% FiO2, diminished bilaterally ABD: soft, nondistended Integumentary: bilateral lower extremity lymphedema with skin lichenification and xerosis; Legs wrapped bilaterally Neuro: lightly sedated, moves extremities, follows some basic commands ET Tube, OG tube Problem List: Acute Hypercarbic Respiratory failure secondary to Pulmonary edema Respiratory acidosis Hyponatremia secondary to volume overload Nausea/vomiting Acute on chronic diastolic heart failure Cor pulmonale Obesity hypoventilation Atrial fibrillation, chronic IDDM2 Hypertension Chronic Lymphedema with bilateral lower extremity lichenification. verrucous cobblestone papules Morbid obesity. Acute Hypercarbic Respiratory failure secondary to Pulmonary edema Respiratory acidosis Hyponatremia secondary to volume overload Nausea/vomiting on admission, presents with worsening SOB, lower extremity edema. continue IV lasix, PO spironolactone Protonix for GI prophylaxis IV lasix increased to 40 mg q8h (11/06) remains intubated and sedated Multiple unsuccessful attempt to wean off vent. Pulm recommending trach eval ENT consulted to eval for trach placement Unable to get consent. Multiple attempts to get in contact with family/MPOA Per ENT, if no surrogate decision maker is identified by November 13, will discuss proceeding with consent by physician agreement continue precedex no BM in several days / since admission, KUB (11/09): question dilated small bowel in LLQ vs distended sigmoid Leukocytosis slightly worse, +intermittent 99s temps, +thickened secretions and increased tube feed residuals repeat Blood cultures, obtain sputum culture Start empiric IV cefepime (11/10-) check urine cx, UA Lactic acid, procal both WNL Acute on chronic diastolic heart failure Cor pulmonale Obesity hypoventilation Cardiology is following Continue IV lasix; increased to 40 mg q8h (11/06) CXR (11/06): lungs clear of acute infiltrate. No significant effusion repeat CXR (11/07): bilateral pulmonary opacities similar to slightly progressive Repeat CXR (11/10): unchanged Echo (11/01): 55-60%EF, elevated filling pressure, trace TR Monitor electrolytes and correct as needed. Atrial fibrillation, chronic Likely chronic Cardiology is following Heart rate is currently controlled. Continue Coreg. IDDM2 Accucheck with SSI- increased to aggressive semglee increased to 30u BID 11/08 adjust tube feeds Hypertension continue home coreg Chronic Lymphedema with bilateral lower extremity lichenification. Verrucous cobblestone papules Morbid obesity. Continue local wound care with lidex cream Keep legs wrapped. Dr. Arnold, general surgeon consulted f/u outpatient at Lymphedema clinic VTE: Lovenox Code: Full Continue ICU level of care Time Spent Managing Pts Care (In Minutes): 55
[2024-11-10 09:08] LABS: Sqamous Epithelial <5 /HPF (None Seen); Transitional Epithelial <5 /HPF (None Seen); Urine Bacteria <20 /HPF (<20); Urine Bilirubin 1+ (Negative); Urine Blood 2+ (Negative); Urine Clarity Extremely Turbid (Clear); Urine Color Yellow (Yellow); Urine Culture Reflex Order NOT NEEDED; Urine Glucose NEGATIVE (Negative); Urine Granular Casts 0-5 /LPF (None Seen); Urine Ketones NEGATIVE (Negative); Urine Microscopic Reflex YN ORDER UMIC; Urine Mucus Slight /HPF (None Seen); Urine Nitrite NEGATIVE (Negative); Urine Protein 1+ (Negative); Urine RBC 21-50 /HPF (None Seen); Urine Urobilinogen 1+ (Normal)
[2024-11-10] MEDS: ASPIRIN 81 MG CHEWABLE TABLET FT SCH (09:13)
[2024-11-10] MEDS: CEFEPIME 1 GM in NA CHLORIDE 0.9% 100 ML IV SCH (10:05)
[2024-11-10] MEDS: INSULIN GLARGINE 100 UNIT/ML SQ ONE (10:05)
--- NOTE | 2024-11-10 11:16 | P.PN ---
Subjective Date of Service: 11/10/24 Chief Complaint: Respiratory failure Patient is currently unresponsive on a ventilator unable to wean awaiting family consent for tracheostomy also has copious secretions white count is not elevated Review of Systems is unable to be obtained Physical Examination - Vital Signs Temperature: 98.6 F Blood Pressure: 119/75 Pulse: 101 Respirations: 22 Pulse Ox (%): 94 - Physical Exam General: Unresponsive Respiratory: Clear to auscultation bilaterally Cardiovascular: Regular rate/rhythm, Edema - Studies Medications List Reviewed: Yes Assessment And Plan - Current Problems (Diagnosis) (1) Hypercapnic respiratory failure Current Visit: Yes Status: Acute Plan: Patient has hypoxic respiratory failure unable to wean off the ventilator awaiting family consent for tracheostomy copious secretions start patient on cefepime send of sputum cultures blood cultures urinalysis procalcitonin is elevated is on 35% FiO2 patient's chest x-ray is clear endotracheal tube satisfactory position Qualifiers: Chronicity: unspecified Qualified Code(s): J96.92 - Respiratory failure, unspecified with hypercapnia
[2024-11-11 06:04] LABS: Anion Gap 8.6 mEq/L (5.0-15.0); Magnesium 2.6 mg/dL (1.6-2.4); Potassium 3.6 mEq/L (3.5-5.1)
[2024-11-11] MEDS: DEXMEDETOMIDINE HCL 200 MCG/2 ML VIAL ONE (06:07)
[2024-11-11] MEDS: NA CHLORIDE 0.9% 100 ML ONE (06:07)
[2024-11-11 06:21] LABS: Absolute Basophils 0.1 K/uL (0-0.5); Absolute Eosinophils 0.1 K/uL (0-0.5); Absolute Lymphocytes (CBC) 1.8 K/uL (0.7-4.9); Absolute Monocytes 1.1 K/uL (0.1-1.3); Absolute Neutrophil 10.3 K/uL (1.8-8.0); Basophils % 0.4 % (0-1.3); Eosinophils % 0.9 % (0-4.4); Hematocrit 34.9 % (39.6-49.0); Hemoglobin 10.9 g/dL (13.6-17.9); Lymphocytes % 13.3 % (15.3-44.8); MCH 25.5 pg (27.0-35.0); MCHC 31.2 g/dL (32.0-36.0); MCV 81.6 fL (80-100); MPV 10.3 fL (7.6-11.3); Monocytes % 8.2 % (3.3-12.3); Neutrophils % 77.2 % (41.7-73.7); Platelets 191 thou/uL (152-406); RBC Red Blood Cell Count 4.28 M/uL (4.33-5.43); Red Cell Distribution Width 17.5 % (12.1-15.2)
[2024-11-11] MEDS: DEXMEDETOMIDINE HCL 200 MCG in NA CHLORIDE 0.9% 98 ML IV SCH (06:39)
--- NOTE | 2024-11-11 08:34 | P.PN ---
Date of Service: 11/11/24 Subjective: remains intubated and sedated; 40% FiO2 no BM in 1+ week per chart shakes head yes when asked if in pain per nursing staff ROS: unable to fully obtain d/t sedation/intubated Physical Exam: GEN: intubated, sedated CV: Irregularly Irregular rate and rhythm. chronic lymphedema Pulm: on vent, 40% FiO2, diminished bilaterally ABD: soft, slightly distended Integumentary: bilateral lower extremity lymphedema with skin lichenification and xerosis; Legs wrapped bilaterally ET Tube, OG tube Problem List: Acute Hypercarbic Respiratory failure secondary to Pulmonary edema Respiratory acidosis Hyponatremia secondary to volume overload Nausea/vomiting Acute on chronic diastolic heart failure Cor pulmonale Obesity hypoventilation Constipation Atrial fibrillation, chronic IDDM2 Hypertension Chronic Lymphedema with bilateral lower extremity lichenification. verrucous cobblestone papules Morbid obesity. Acute Hypercarbic Respiratory failure secondary to Pulmonary edema Respiratory acidosis Hyponatremia secondary to volume overload Nausea/vomiting on admission, presents with worsening SOB, lower extremity edema. continue IV lasix, PO spironolactone Protonix for GI prophylaxis IV lasix increased to 40 mg q8h (11/06) remains intubated and sedated Multiple unsuccessful attempt to wean off vent. Pulm recommending trach eval ENT consulted to eval for trach placement Unable to get consent. Multiple attempts to get in contact with family/MPOA Per ENT, if no surrogate decision maker is identified by November 13, will discuss proceeding with consent by physician agreement continue precedex Leukocytosis slightly worse, +intermittent 99s temps, +thickened secretions and increased tube feed residuals repeat Blood cx (11/10): NGTD; Sputum growing normal respiratory farhat continue empiric IV cefepime (11/10-) Lactic acid, procal both WNL leukocytosis improving no clear source of infxn Acute on chronic diastolic heart failure Cor pulmonale Obesity hypoventilation Cardiology is following repeat CXR (11/07): bilateral pulmonary opacities similar to slightly progressive Repeat CXR (11/10): unchanged Echo (11/01): 55-60%EF, elevated filling pressure, trace TR Continue IV lasix; increased to 40 mg q8h (11/06) Monitor electrolytes and correct as needed. Constipation no BM in several days / since admission KUB (11/09): question dilated small bowel in LLQ vs distended sigmoid suspect ileus given immobility / medications will try gentle stool softener repeat KUB Atrial fibrillation, chronic Likely chronic Cardiology is following Heart rate is currently controlled. Continue Coreg. IDDM2 Accucheck with SSI- increased to aggressive semglee increased to 30u BID 11/08 adjust tube feeds Hypertension continue home coreg Chronic Lymphedema with bilateral lower extremity lichenification. Verrucous cobblestone papules Morbid obesity. Continue local wound care with lidex cream Keep legs wrapped. Dr. Arnold, general surgeon consulted f/u outpatient at Lymphedema clinic VTE: Lovenox Code: Full Continue ICU level of care Time Spent Managing Pts Care (In Minutes): 55
[2024-11-11] MEDS ORDERED: BISACODYL 10 MG RECTAL SUPP PR ONE (10:00)
[2024-11-11 16:19] LABS: Arterial Blood Carboxyhemoglob 1.7 % (0-1.5); Blood Gas THB 15.6 g/dl (12-18); Blood O2 Saturation 94.2 % (92-98.5)
--- NOTE | 2024-11-11 19:32 | RAD REPORT ---
EXAM: AP view(s) of the abdomen Abdomen 1 View (KUB) HISTORY: Evaluate for stool burden COMPARISON: 11/09/2024 FINDINGS: Evaluation limited by body habitus. Nonobstructive bowel gas pattern.. Low formed stool burden. No suspicious calcifications are seen. No acute osseous abnormality. Other: n/a IMPRESSION: Nonobstructive bowel gas pattern. Low formed stool burden.
[2024-11-11] MEDS: ACETAZOLAMIDE 500 MG IV IV SCH (19:55)
[2024-11-12 05:55] LABS: Hematocrit 33.8 % (39.6-49.0); Hemoglobin 10.6 g/dL (13.6-17.9); MCH 25.7 pg (27.0-35.0); MCHC 31.2 g/dL (32.0-36.0); MCV 82.3 fL (80-100); MPV 10.4 fL (7.6-11.3); Platelets 198 thou/uL (152-406); RBC Red Blood Cell Count 4.11 M/uL (4.33-5.43); Red Cell Distribution Width 17.4 % (12.1-15.2)
[2024-11-12 06:05] LABS: Albumin 1.3 g/dL (3.4-5.0); Albumin/Globulin Ratio 0.2 (1.1-1.8); Anion Gap 6.8 mEq/L (5.0-15.0); Globulin 5.5 g/dL (2.3-3.5); Magnesium 2.7 mg/dL (1.6-2.4); Phosphorus 3.9 mg/dL (2.5-4.9); Potassium 3.8 mEq/L (3.5-5.1); Protein, Total 6.8 g/dL (6.4-8.2)
--- NOTE | 2024-11-12 08:32 | P.PN ---
Date of Service: 11/12/24 Subjective: remains intubated and sedated +increased thickened brownish secretions increased to 55% FiO2 ROS: unable to fully obtain d/t sedation/intubated Physical Exam: GEN: intubated, sedated CV: Irregularly Irregular rate and rhythm. chronic lymphedema Pulm: on vent, on 55% FiO2, diminished bilaterally ABD: slightly distended but soft Integumentary: bilateral lower extremity lymphedema with skin lichenification and xerosis ET Tube, OG tube Problem List: Acute Hypercarbic Respiratory failure secondary to Pulmonary edema Respiratory acidosis Hyponatremia secondary to volume overload Nausea/vomiting Acute on chronic diastolic heart failure Cor pulmonale Obesity hypoventilation Constipation Atrial fibrillation, chronic IDDM2 Hypertension Chronic Lymphedema with bilateral lower extremity lichenification. verrucous cobblestone papules Morbid obesity. Acute Hypercarbic Respiratory failure secondary to Pulmonary edema Respiratory acidosis Hyponatremia secondary to volume overload Nausea/vomiting on admission, presents with worsening SOB, lower extremity edema. continue IV lasix, PO spironolactone Protonix for GI prophylaxis IV lasix decreased to 40 mg daily (11/12) remains intubated and sedated Multiple unsuccessful attempt to wean off vent. Pulm recommending trach eval ENT consulted to eval for trach placement Unable to get consent. Multiple attempts to get in contact with family/MPOA Per ENT, if no surrogate decision maker is identified by November 13, will discuss proceeding with consent by physician agreement continue precedex 11/10 Leukocytosis slightly worse, +intermittent 99s temps, +thickened secretions and increased tube feed residuals repeat Blood cx (11/10): NGTD; Sputum growing normal respiratory farhat continue empiric IV cefepime (11/10-) Lactic acid, procal both WNL leukocytosis improving no clear source of infxn concern increasing fio2 - possibly secondary to no BM / abd distention - see below Acute on chronic diastolic heart failure Cor pulmonale Obesity hypoventilation Cardiology is following repeat CXR (11/07): bilateral pulmonary opacities similar to slightly progressive Repeat CXR (11/10): unchanged Echo (11/01): 55-60%EF, elevated filling pressure, trace TR IV lasix decreased to 40 mg daily (11/12) Monitor electrolytes and correct as needed. Constipation no BM in several days / since admission KUB (1/16): question dilated small bowel in LLQ vs distended sigmoid repeat KUB (11/11): nonobstructive bowel gas pattern. Low formed stool burden will try dulcolax suppository today will consider CT this afternoon if no BM Atrial fibrillation, chronic Likely chronic Cardiology is following Heart rate is currently controlled. Continue Coreg. IDDM2 Accucheck with SSI- increased to aggressive semglee increased to 30u BID 11/08 adjust tube feeds Hypertension continue home coreg Chronic Lymphedema with bilateral lower extremity lichenification. Verrucous cobblestone papules Morbid obesity. Continue local wound care with lidex cream Keep legs wrapped. Dr. Arnold, general surgeon consulted f/u outpatient at Lymphedema clinic VTE: Lovenox Code: Full Continue ICU level of care Time Spent Managing Pts Care (In Minutes): 55
[2024-11-12] MEDS: POTASSIUM 25 MEQ EFFERV TAB PO ONE (08:51)
[2024-11-12] MEDS: FUROSEMIDE 40 MG/4 ML VIAL IV SCH (08:52)
[2024-11-12] MEDS: BISACODYL 10 MG RECTAL SUPP PR ONE (08:54)
--- NOTE | 2024-11-12 09:17 | P.PN ---
Subjective Date of Service: 11/12/24 Chief Complaint: Respiratory failure Patient is still unresponsive on a ventilator on a Precedex drip still has copious secretions Review of Systems is unable to be obtained Physical Examination - Vital Signs Temperature: 99 F Blood Pressure: 110/69 Pulse: 103 Respirations: 17 Pulse Ox (%): 95 - Physical Exam General: Unresponsive Respiratory: Clear to auscultation bilaterally, Diminished Gastrointestinal: Distended (Appears to be distended soft) - Studies Medications List Reviewed: Yes Assessment And Plan - Current Problems (Diagnosis) (1) Hypercapnic respiratory failure Current Visit: Yes Status: Acute Plan: Patient has hypoxic hypercapnic respiratory failure bicarbonate is now elevated I suspect is secondary to aggressive diuresis agree with reducing dose of Lasix add Diamox sputum cultures are negative patient's oxygen requirement has increased patient unable to wean from the ventilator await family consent for a tracheostomy patient appears to be constipated patient's bilirubin is also elevated mildly abnormal LFTs avoid Lasix for now prognosis poor Qualifiers: Chronicity: unspecified Qualified Code(s): J96.92 - Respiratory failure, unspecified with hypercapnia
[2024-11-12] MEDS: GLUCERNA 1.5 CAL 1,000 ML BOT RTH SCH (17:05)
--- NOTE | 2024-11-12 22:49 | RAD REPORT ---
EXAM: CT CHEST, ABDOMEN AND PELVIS WITHOUT CONTRAST CLINICAL INDICATION: Male, 64 years old. [facility] MA[facility] no BM in 10 d, eval ileus/obstruction, stool burden TECHNIQUE: CT chest, abdomen and pelvis was performed, without IV contrast, as per department protoco l. Axial, sagittal and coronal reconstructions were obtained. One or more of the following dose reduction techniques were used: Automated exposure control, adjustment of the mA and/or kV according to the patient size, and/or iterative reconstruction. Unless otherwise specified, incidental findings do not require dedicated imaging follow-up. COMPARISON: 07/08/2007. FINDINGS: The lack of intravenous contrast limits the sensitivity of this exam for evaluation of solid visceral organs, vascular structures, and retroperitoneum. Chest: LOWER NECK/CHEST WALL: Visualized thyroid gland and soft tissues are normal. LUNGS AND AIRWAYS: Airways are clear. Bibasilar patchy dependent airspace opacities. Small bilateral layering pleural effusion, larger on the right. PLEURA: No pneumothorax. Hemidiaphragms are normally positioned. MEDIASTINUM AND LYMPH NODES: No mediastinal mass or fluid collection. Normal size mediastinal, hilar, and axillary lymph nodes. THORACIC AORTA: Normal caliber and configuration. PULMONARY ARTERIES: Normal caliber. HEART: Unremarkable. Abdomen/Pelvis LIVER: Normal in size and contour. No focal lesion. GALLBLADDER/BILE DUCTS: No biliary ductal dilatation. PANCREAS: No mass, ductal dilation, or simon-pancreatic fluid. SPLEEN: Normal size. No focal lesion. ADRENALS: Normal; no mass. KIDNEYS AND URETERS: Normal size and contour. No hydronephrosis. GASTROINTESTINAL TRACT: Enteric tube in place. Stomach is non-dilated. Small bowel has normal course and caliber. No colonic wall thickening or pericolonic inflammatory changes. Mild stool burden throughout the colon. PERITONEUM: No free fluid. LYMPH NODES: No lymphadenopathy. ABDOMINAL AORTA AND OTHER VESSELS: Normal caliber aorta and IVC. URINARY BLADDER: Decompressed Hood catheter. Apparent wall thickening although decompression limits evaluation. Pericystic fat stranding. REPRODUCTIVE ORGANS: No pathologic process. MUSCULOSKELETAL: No acute or suspicious osseous abnormality. ADDITIONAL FINDINGS: Large bilobed left paraumbilical hernia containing fat. IMPRESSION: Patchy bilateral dependent airspace opacities, with small bilateral layering pleural effusions, rayo rning for pneumonia. Pericystic fat stranding, raising concern for infectious/inflammatory cystitis, although decompressio n of the urinary bladder limits evaluation.
[2024-11-13 06:13] LABS: PT Prothrombin Time 16.1 SECONDS (9.4-12.5); Protime INR 1.54
[2024-11-13 06:15] LABS: Absolute Basophils 0.1 K/uL (0-0.5); Absolute Lymphocytes (CBC) 1.1 K/uL (0.7-4.9); Absolute Monocytes 0.7 K/uL (0.1-1.3); Absolute Neutrophil 12.4 K/uL (1.8-8.0); Basophils % 0.4 % (0-1.3); Eosinophils % 0.2 % (0-4.4); Hematocrit 34.6 % (39.6-49.0); Hemoglobin 10.3 g/dL (13.6-17.9); Lymphocytes % 7.6 % (15.3-44.8); MCH 25.3 pg (27.0-35.0); MCHC 29.8 g/dL (32.0-36.0); MCV 85.1 fL (80-100); MPV 11.2 fL (7.6-11.3); Monocytes % 4.8 % (3.3-12.3); Platelets 198 thou/uL (152-406); RBC Red Blood Cell Count 4.07 M/uL (4.33-5.43); Red Cell Distribution Width 17.8 % (12.1-15.2)
[2024-11-13 06:24] LABS: Albumin 1.4 g/dL (3.4-5.0); Albumin/Globulin Ratio 0.2 (1.1-1.8); Anion Gap 5.6 mEq/L (5.0-15.0); Bilirubin Total 1.9 mg/dL (0.2-1.0); Globulin 5.9 g/dL (2.3-3.5); Phosphorus 5.1 mg/dL (2.5-4.9); Protein, Total 7.3 g/dL (6.4-8.2)
[2024-11-13 06:26] LABS: Magnesium 3.1 mg/dL (1.6-2.4); Potassium 4.6 mEq/L (3.5-5.1)
--- NOTE | 2024-11-13 08:11 | RAD REPORT ---
EXAMINATION: ONE VIEW CHEST XR CLINICAL INDICATION: Respiratory failure TECHNIQUE: Frontal chest projection is submitted. Examination is limited by patient positioning and t echnique. COMPARISON: 11/10/2014 FINDINGS: Tip of the endotracheal tube is about 1 cm above the level of the superior aortic arch. Tip of enteri c tube descends into the stomach. Bilateral pulmonary opacities are present, mildly worsened since the comparative study. The heart is moderately enlarged.
--- NOTE | 2024-11-13 08:28 | P.PN ---
Date of Service: 11/13/24 Subjective: remains intubated and sedated able to get into contact with patients daughter yesterday daughter agreeable to be involved in decisions if needed ROS: unable to fully obtain d/t sedation/intubated Physical Exam: GEN: intubated, sedated CV: Irregularly Irregular rate and rhythm. chronic lymphedema Pulm: on vent, on 55% FiO2, diminished bilaterally ABD: slightly distended but soft Integumentary: bilateral lower extremity lymphedema with skin lichenification and xerosis ET Tube, OG tube Problem List: Acute Hypercarbic Respiratory failure secondary to Pulmonary edema Respiratory acidosis Hyponatremia secondary to volume overload Nausea/vomiting Acute on chronic diastolic heart failure Cor pulmonale Obesity hypoventilation Constipation Atrial fibrillation, chronic IDDM2 Hypertension Chronic Lymphedema with bilateral lower extremity lichenification. verrucous cobblestone papules Morbid obesity. Acute Hypercarbic Respiratory failure secondary to Pulmonary edema Respiratory acidosis Hyponatremia secondary to volume overload Nausea/vomiting on admission, presents with worsening SOB, lower extremity edema. remains intubated and sedated Multiple unsuccessful attempt to wean off vent. Pulm recommending trach eval ENT consulted to eval for trach placement Unable to get consent for several days. Multiple attempts to get in contact with family/MPOA 11/12 Finally able to get into contact with patients daughter. Daughter agreeable to be involved in decisions if needed trach placement per ENT/Pulm 11/10 Leukocytosis slightly worse, +intermittent 99s temps, +thickened secretions and increased tube feed residuals repeat Blood cx (11/10): NGTD; Sputum growing normal respiratory farhat continue empiric IV cefepime (11/10-) Lactic acid, procal both WNL CT abdomen (11/12):Patchy bilateral dependent airspace opacities, with small bilateral layering pleural effusions. Pericystic fat stranding, raising concern for infectious/inflammatory cystitis. concern increasing fio2 - possibly secondary to no BM / abd distention - see below Protonix for GI prophylaxis diamox added 11/11 IV lasix dcd 11/12 Acute on chronic diastolic heart failure Cor pulmonale Obesity hypoventilation Cardiology is following repeat CXR (11/07): bilateral pulmonary opacities similar to slightly progressive Repeat CXR (11/10): unchanged Echo (11/01): 55-60%EF, elevated filling pressure, trace TR IV lasix dcd 11/12 Monitor electrolytes and correct as needed. Constipation no BM in several days / since admission KUB (11/09): question dilated small bowel in LLQ vs distended sigmoid repeat KUB (11/11): nonobstructive bowel gas pattern. Low formed stool burden CT abdomen (11/12): Mild stool burden. Patchy bilateral dependent airspace opacities. Pericystic fat stranding. s/p dulcolax suppository 11/12 Atrial fibrillation, chronic Likely chronic Cardiology is following Heart rate is currently controlled. Continue Coreg. IDDM2 Accucheck with SSI- increased to aggressive semglee increased to 30u BID 11/08 adjust tube feeds Hypertension continue home coreg Chronic Lymphedema with bilateral lower extremity lichenification. Verrucous cobblestone papules Morbid obesity. Continue local wound care with lidex cream Keep legs wrapped. Dr. Arnold, general surgeon consulted f/u outpatient at Lymphedema clinic VTE: Lovenox Code: Full Continue ICU level of care Time Spent Managing Pts Care (In Minutes): 55
[2024-11-13 10:02] LABS: Blood Morphology Comment NOT SEEN (NOT SEEN); Platelet Estimate ADEQ; White Blood Cell Scan OK (OK)
[2024-11-13] MEDS ORDERED: ALBUTEROL 2.5 MG/3 ML NEB SOL NEB PRN (12:28)
--- NOTE | 2024-11-13 12:35 | P.PN ---
Subjective Date of Service: 11/13/24 Chief Complaint: Respiratory failure No change in patient's condition is still continues to have copious secretion Review of Systems is unable to be obtained Physical Examination - Vital Signs Temperature: 97.4 F Blood Pressure: 112/78 Pulse: 112 Respirations: 16 Pulse Ox (%): 94 - Physical Exam General: Unresponsive Cardiovascular: Edema Gastrointestinal: Normal bowel sounds, Soft and benign - Studies Medications List Reviewed: Yes Assessment And Plan - Current Problems (Diagnosis) (1) Hypercapnic respiratory failure Current Visit: Yes Status: Acute Plan: Patient has hypoxic hypercapnic respiratory failure diuretics have been reduced patient is on IV Diamox spironolactone reduced to once a day renal function is improving most likely all his prerenal currently stable oxygenation satisfactory oxygenation satisfactory so far the sputum cultures are negative chest x-ray reviewed endotracheal tube satisfactory position renal function is worse white count is still elevated Qualifiers: Chronicity: unspecified Qualified Code(s): J96.92 - Respiratory failure, unspecified with hypercapnia
[2024-11-14 06:29] LABS: Albumin 1.3 g/dL (3.4-5.0); Albumin/Globulin Ratio 0.2 (1.1-1.8); Anion Gap 6.3 mEq/L (5.0-15.0); Bilirubin Total 1.6 mg/dL (0.2-1.0); Globulin 5.9 g/dL (2.3-3.5); Magnesium 3.4 mg/dL (1.6-2.4); Potassium 4.3 mEq/L (3.5-5.1); Protein, Total 7.2 g/dL (6.4-8.2)
[2024-11-14 07:50] LABS: Absolute Basophils 0.1 K/uL (0-0.5); Absolute Monocytes 0.5 K/uL (0.1-1.3); Basophils % 0.4 % (0-1.3); Eosinophils % 0.3 % (0-4.4); Hematocrit 33.1 % (39.6-49.0); Hemoglobin 9.9 g/dL (13.6-17.9); Lymphocytes % 7.2 % (15.3-44.8); MCH 25.3 pg (27.0-35.0); MCV 84.5 fL (80-100); MPV 12.7 fL (7.6-11.3); Monocytes % 3.9 % (3.3-12.3); Neutrophils % 88.2 % (41.7-73.7); Nucleated Red Blood Cells % 0.2 % (0-0); Platelets 184 thou/uL (152-406); RBC Red Blood Cell Count 3.92 M/uL (4.33-5.43)
[2024-11-14] MEDS: SPIRONOLACTONE 25 MG TABLET PO SCH (07:59)
--- NOTE | 2024-11-14 08:25 | RAD REPORT ---
EXAMINATION: US RETROPERITONEUM CLINICAL INDICATION: [facility] toni TECHNIQUE: Real-time ultrasonography of the abdomen was performed. COMPARISON: CT abdomen and pelvis 11/12/2024 FINDINGS: Evaluation limited by poor penetration and extensive bowel gas. RIGHT KIDNEY: Right renal length measurement: 11.5 cm. Normal in echogenicity and size. No calculus, solid mass or hydronephrosis. LEFT KIDNEY: Not visualized due to overshadowing ribs and bowel gas.. URINARY BLADDER: Not visualized, probably decompressed. Hood catheter was present.. ADDITIONAL FINDINGS: None. IMPRESSION: No hydronephrosis or focal abnormality of the right kidney allowing for limitations mentioned above. Left kidney and bladder lumen were not evaluated.
--- NOTE | 2024-11-14 12:44 | P.PN ---
Subjective Date of Service: 11/14/24 Chief Complaint: Respiratory failure Patient's condition is unchanged still tachypneic copious secretions tube feeds on hold patient is hypernatremic renal function worse Review of Systems is unable to be obtained Physical Examination - Vital Signs Temperature: 97.3 F Blood Pressure: 97/66 Pulse: 107 Respirations: 16 Pulse Ox (%): 95 - Physical Exam General: Unresponsive Respiratory: Clear to auscultation bilaterally Cardiovascular: Regular rate/rhythm, Normal S1 S2, Edema - Studies Medications List Reviewed: Yes Assessment And Plan - Current Problems (Diagnosis) (1) Hypercapnic respiratory failure Current Visit: Yes Status: Acute Plan: Patient has chronic respiratory failure awaiting trach renal function is worse most likely prerenal and renal IV fluids DC spironolactone white count is declining cultures negative condition satisfactory blood pressure is also little low and off on diuretics for now Qualifiers: Chronicity: unspecified Qualified Code(s): J96.92 - Respiratory failure, unspecified with hypercapnia
--- NOTE | 2024-11-14 13:55 | P.PN ---
Subjective Date of Service: 11/14/24 Chief Complaint: Respiratory failure No major issues overnight. Patient remain intubated and on mechanical ventilation and sedated. He remains in atrial fibrillation. Physical Examination - Vital Signs Temperature: 97.3 F Blood Pressure: 97/66 Pulse: 107 Respirations: 16 Pulse Ox (%): 95 - Studies Medications List Reviewed: Yes Assessment And Plan - Plan Physical Exam General: sedated, morbidly obese HEENT: ET Tube, OG tube Neck: Supple Respiratory: Bilateral upper airway transmitted sounds. Diminished breath sounds bilaterally Cardiovascular: Normal pulses, irregularly irregular, Normal S1 S2 Gastrointestinal: Normal bowel sounds, obese abdomen Musculoskeletal: No clubbing, bilateral lower extremity lymphedema with skin lichenification and xerosis. Integumentary: Bilateral lower extremity skin liquefication and xerosis Neurology: Sedated Problem List: Acute Hypercarbic Respiratory failure secondary to Pulmonary edema Respiratory acidosis Hyponatremia secondary to volume overload Nausea/vomiting Acute on chronic diastolic heart failure Cor pulmonale Obesity hypoventilation Constipation Atrial fibrillation, chronic IDDM2 Hypertension Chronic Lymphedema with bilateral lower extremity lichenification. verrucous cobblestone papules Morbid obesity. Acute Hypercarbic Respiratory failure secondary to Pulmonary edema Respiratory acidosis Hyponatremia secondary to volume overload Nausea/vomiting remains intubated and sedated multiple unsuccessful attempt to wean off vent. Pulm recommending trach eval ENT consulted to eval for trach placement. There has been multiple attempts to contact family member for consent for tracheostomy but that has failed patients daughter later responded and she is agreeable to be involved in decisions if needed Trach placement per ENT/Pulm pending consent from daughter. Increased tube feeding residual. Repeat Blood cx (11/10): NGTD; Sputum growing normal respiratory farhat continue empiric IV cefepime (11/10-) Procalcitonin negative CT abdomen (11/12):Patchy bilateral dependent airspace opacities, with small bilateral layering pleural effusions. Pericystic fat stranding, raising concern for infectious/inflammatory cystitis. Protonix for GI prophylaxis diamox added 11/11 IV lasix dcd 11/12 Acute on chronic diastolic heart failure Cor pulmonale Obesity hypoventilation Cardiology is following repeat CXR (11/07): bilateral pulmonary opacities similar to slightly progressive Repeat CXR (11/10): unchanged Echo (11/01): 55-60%EF, elevated filling pressure, trace TR IV lasix dcd 11/12. Patient is currently on Diamox. Monitor electrolytes and correct as needed. Constipation no BM in several days / since admission KUB (11/09): question dilated small bowel in LLQ vs distended sigmoid repeat KUB (11/11): nonobstructive bowel gas pattern. Low formed stool burden CT abdomen (11/12): Mild stool burden. Patchy bilateral dependent airspace opacities. Pericystic fat stranding. s/p dulcolax suppository 11/12 Atrial fibrillation, chronic Likely chronic Cardiology is following Heart rate is currently controlled. Continue Coreg. IDDM2 Accucheck with SSI- increased to aggressive Continue current dose Semglee. adjust tube feeds. Hold tube feeding for high cost residual Hypertension continue home coreg Chronic Lymphedema with bilateral lower extremity lichenification. Verrucous cobblestone papules Morbid obesity. Continue local wound care with lidex cream Keep legs wrapped. Dr. Arnold, general surgeon evaluated patient. f/u outpatient at Lymphedema clinic VTE: Lovenox Code: Full Continue ICU level of care
[2024-11-14] MEDS: NACHLORIDE 0.45% 1,000 ML IV SCH (14:15)
[2024-11-15 06:12] LABS: Absolute Lymphocytes (CBC) 0.7 K/uL (0.7-4.9); Absolute Monocytes 0.6 K/uL (0.1-1.3); Absolute Neutrophil 10.4 K/uL (1.8-8.0); Basophils % 0.1 % (0-1.3); Eosinophils % 0.4 % (0-4.4); Hematocrit 32.6 % (39.6-49.0); Hemoglobin 10.1 g/dL (13.6-17.9); MCH 25.9 pg (27.0-35.0); MCHC 31.1 g/dL (32.0-36.0); MCV 83.5 fL (80-100); MPV 11.4 fL (7.6-11.3); Neutrophils % 88.5 % (41.7-73.7); Platelets 198 thou/uL (152-406); Red Cell Distribution Width 17.8 % (12.1-15.2)
[2024-11-15 06:29] LABS: Anion Gap 3.9 mEq/L (5.0-15.0); Magnesium 3.6 mg/dL (1.6-2.4); Phosphorus 3.9 mg/dL (2.5-4.9); Potassium 3.9 mEq/L (3.5-5.1)
[2024-11-15] MEDS: KCL 20 MEQ/100 mL IVPB 20 MEQ/100 ML BAG IV SCH (07:03)
--- NOTE | 2024-11-15 09:17 | CON ---
Date of Consultation: 11/13/2024 Chief Complaint: Acute kidney injury. History Of Present Illness: The patient is admitted to ICU. He is intubated. He was found to have pneumonia and pulmonary edema. He failed extubation attempt. The patient is a 64-year-old man, who was admitted to the hospital on November 01. Over last 3 days, serum creatinine level was steadily going up and nephrology consultation is requested today for acute kidney injury. Over last 24 hours, Lasix was stopped and the patient is on hydration via NG tube and intake of the free water via the NG tube was increased to control acute kidney injury and volemia. The patient has multiple medical problems including history of obesity, diabetes mellitus, hypertension. On arrival to the hospital, he was complaining of shortness of breath. He was on 4 L nasal cannula. He has bilateral lower extremity papules and swelling, not well controlled despite diuretic therapy. On arrival to the hospital, sodium level was 128, potassium 3.4, serum glucose 230. BNP is 1625. Chest x-ray showed bilateral pulmonary opacities indicating pulmonary edema or pneumonia. The patient is on antibiotics. He has history of diabetes mellitus which is insulin dependent, hypertension, chronic wounds to the lower extremity. Review of Systems: Unobtainable, the patient remains intubated in ICU. Past Medical History: As stated above. Diabetes mellitus insulin dependent, hypertension, chronic wounds in lower extremity, obesity. There is no history of significant chronic kidney disease. On previous occasion, the patient had relatively normal azotemia. Review of Systems: The patient cannot provide review of systems. The patient remains intubated. Physical Examination: Neck: Supple. Lungs: Equal chest expansion. Few rhonchi. Heart: S1, S2. No pericardial friction rub. Abdomen: Obese, soft, not tender. Extremities: Papules bilaterally present. Slight edema. Warm. Laboratory Data: Hemoglobin 10.3, WBC is 14.3, and platelet count is 198,000. Chemistry showed sodium 142, potassium 4.6, chloride 101, CO2 40, anion gap 5.6, BUN 72, creatinine 2.03, glucose 271, calcium 8.2, phosphorus 5.1, magnesium 3.1, albumin 1.4. Serum total protein 7.3. Urinalysis was done on November 10 which showed rbc 21 to 50, although on November 01 was less than 5. Urine protein is ranging from 1+ to 2+, hyaline casts were present on November 01, up from to . Assessment And Plan: 1. Acute kidney injury, multifactorial associated with congestive heart failure, continue diuretivcs. The patient has hypercapnic respiratory failure, acute, the patient has diastolic dysfunction . The patient will continue Aldactone. 2. Atrial fibrillation. The patient has been followed by Cardiology. 3. Elevated BUN and creatinine ratio, acute kidney injury. Continue treatment with extensive diuretics. 4. Hypertension. Monitor blood pressure closely. 5. Acute hypercapnic respiratory failure complicated by pulmonary edema. Currently, Lasix reduced to maintenance dose. 6. Hyponatremia secondary to volume overload. The patient was treated with Lasix. Recommend to continue spironolactone and monitor potassium level. 7. Diabetes mellitus. The patient is not a candidate for metformin. 8. Respiratory failure, cor pulmonale, acute on chronic diastolic congestive heart failure. There is some element of cardiorenal syndrome. 9. Lymphedema with bilateral lower extremity chronic dermatitis due to morbid obesity and lymphedema, management per primary team. YOBANY/BRAEDEN Voice ID: [id number] Report ID: [id number] MTDD
[2024-11-15] MEDS: NOREPINEPHRINE BITARTRATE/D5W 4 MG/250 ML KIT IV ONE (11:58)
--- NOTE | 2024-11-15 12:09 | P.PN ---
Date of Service: 11/15/24 Spoke with daughter, Cielo, via telephone regarding recommendations for tracheotomy including risks and benefits. She is agreeable to procedure. I will speak with OR regarding scheduling for vs Wed.
--- NOTE | 2024-11-15 12:32 | RAD REPORT ---
Procedure: Chest Single View HISTORY: CODE BLUE COMPARISON: November 13, 2024 FINDINGS: Tip of an endotracheal tube 1.5 cm above the top of the aortic arch. Nasogastric tube within the stomach Artifact overlies the chest. No significant change in bilateral No significant pleural effusion noted. The heart remains enlarged
--- NOTE | 2024-11-15 12:53 | RAD REPORT ---
EXAMINATION: ONE VIEW CHEST XR CLINICAL INDICATION: s/p PICC TECHNIQUE: Frontal chest projection is submitted. Examination is limited by patient positioning and t echnique. COMPARISON: 11/15/2024 FINDINGS: Left-sided PICC line is noted. The tip is in the region of the SVC superiorly. Endotracheal ablation again noted tip above the alfred. Enteric tube descends into the abdomen. Lung aeration is unchanged.
--- NOTE | 2024-11-15 13:01 | P.PN ---
Date of Service: 11/15/24 JOSE A QUEEN was called on patient. On my arrival active CPR was ongoing. I oversaw CPR, which was performed via ACLS. Patient received 2 rounds of epinephrine, initial rhythm of PEA and subsequent pulse was appreciated. Patient also given amp of bicarb. Initial blood pressures were hypertensive with a downtrend. I instructed to initiate norepinephrine given the significant downtrend. EKG was obtained, independently reviewed and interpreted by me, shows atrial fibrillation, rate of 111, no acute ST segment elevations, intervals were nonactionable. Chest x-ray showed cardiomegaly and vascular congestion, no evidence of pneumothorax. Patient did have issues with hypoxia with saturations in the mid 80s, subsequently we increased patient FiO2 as well as PEEP which resulted in improvement in oxygenation. Patient remains in critical status, will defer rest of care to primary team. Aryan Vanegas MD
[2024-11-15] MEDS: NOREPINEPHRINE 4 MG in D5W 250 ML IV SCH (13:46)
[2024-11-15] MEDS: ALBUMIN HUM 5% 500 ML IV SCH (15:14)
[2024-11-15] MEDS: HEPARIN/D5W 25,000 UNIT/500 ML BAG IV SCH (16:40)
--- NOTE | 2024-11-15 16:42 | P.PN ---
Subjective Date of Service: 11/15/24 Chief Complaint: Respiratory failure CODE BLUE was called on the patient because he became severely bradycardic with heart rate in the 20s and lost his pulse. ACLS carried out for about 8 minutes with ROSC. Patient now with hypotension, status post IV NS bolus. He is now requiring 100% FiO2 on the vent. Patient remain sedated. Repeat EKG shows atrial fibrillation, no ischemic changes. Physical Examination - Vital Signs Temperature: 98.6 F Blood Pressure: 98/62 Pulse: 103 Respirations: 16 Pulse Ox (%): 100 - Studies Medications List Reviewed: Yes Assessment And Plan - Plan Physical Exam General: sedated, morbidly obese HEENT: ET Tube, OG tube Neck: Supple Respiratory: Bilateral upper airway transmitted sounds. Diminished breath sounds bilaterally Cardiovascular: Normal pulses, irregularly irregular, Normal S1 S2 Gastrointestinal: Normal bowel sounds, obese abdomen Musculoskeletal: No clubbing, bilateral lower extremity lymphedema with skin lichenification and xerosis. Integumentary: Bilateral lower extremity skin liquefication and xerosis Neurology: Sedated Problem List: Acute Hypercarbic Respiratory failure secondary to Pulmonary edema Respiratory acidosis Hyponatremia secondary to volume overload Nausea/vomiting Acute on chronic diastolic heart failure Cor pulmonale Obesity hypoventilation Constipation Atrial fibrillation, chronic IDDM2 Hypertension Chronic Lymphedema with bilateral lower extremity lichenification. verrucous cobblestone papules Morbid obesity. Acute Hypercarbic Respiratory failure secondary to Pulmonary edema Respiratory acidosis Hyponatremia secondary to volume overload Nausea/vomiting remains intubated and sedated multiple unsuccessful attempt to wean off vent. Pulm recommending trach eval ENT consulted to eval for trach placement. Dr. Adler is planning tracheostomy or Wednesday. There was difficult time to contact family members. patients daughter later responded and she is agreeable to be involved in decisions if needed. Patient made DNR. Low rate tube feeding due to increased residual. Repeat Blood cx (11/10): NGTD; Sputum: normal respiratory farhat continue empiric IV cefepime (11/10-) Procalcitonin negative CT abdomen (11/12):Patchy bilateral dependent airspace opacities, with small bilateral layering pleural effusions. Pericystic fat stranding, raising concern for infectious/inflammatory cystitis. Repeat chest x-ray 11/15: Unchanged from previous x-ray. Protonix for GI prophylaxis diamox added 11/11 IV lasix dcd 11/12 PEA/Asystole Cardiogenic shock Likely secondary to respiratory failure Patient is hypotensive. EKG shows no ischemic changes. Possible pulm embolus. Patient is too unstable and have elevated creatinine so high risk with transportation to CT scan and also high risk for ADIN given reduced creatinine clearance. Will continue IV fluid and reassess and hopefully obtain CTA thorax to rule out PE when he is more stable. Repeat echocardiogram. Continue Levophed drip, albumin infusion. Status post IV NS boluses. Acute on chronic diastolic heart failure Cor pulmonale Obesity hypoventilation Cardiology is following repeat CXR (11/07): bilateral pulmonary opacities similar to slightly progressive Repeat CXR (11/10): unchanged Echo (11/01): 55-60%EF, elevated filling pressure, trace TR IV lasix dcd 11/12. Patient is currently on Diamox. Status post IV NS boluses for hypotension. IV albumin as needed Monitor electrolytes and correct as needed. Constipation Patient had a bowel movement today. KUB (11/09): question dilated small bowel in LLQ vs distended sigmoid repeat KUB (11/11): nonobstructive bowel gas pattern. Low formed stool burden CT abdomen (11/12): Mild stool burden. Patchy bilateral dependent airspace opacities. Pericystic fat stranding. s/p dulcolax suppository 11/12 Atrial fibrillation, chronic Likely chronic Cardiology is following Heart rate is currently controlled. Hold Coreg due to hypotension. Patient started on heparin drip. IDDM2 Accucheck with SSI- increased to aggressive Continue current dose Semglee. adjust tube feeds. Low tube feeding rate. Hypertension Patient is currently hypotensive. Hold Coreg. Chronic Lymphedema with bilateral lower extremity lichenification. Verrucous cobblestone papules Morbid obesity. Suspected Pseudomonas skin infection Continue local wound care with acetic acid solution and lidex cream Patient is on cefepime which should cover Pseudomonas Keep legs wrapped. Dr. Arnold, general surgeon evaluated patient. f/u outpatient at Lymphedema clinic. Hypernatremia Patient with hypotension and mild hypernatremia. Continue IV NS Monitor BMP. VTE: Lovenox Code: Full Continue ICU level of care Critical care is time spent managing patient's PEA/asystole, respiratory failure is about 54 minutes.
--- NOTE | 2024-11-15 16:56 | P.PN ---
Subjective Date of Service: 11/15/24 Chief Complaint: Respiratory failure Patient had a cardiopulmonary arrest this afternoon he is currently on low-dose Levophed on vasopressors oxygen requirements is also increased Review of Systems is unable to be obtained Physical Examination - Vital Signs Temperature: 98.6 F Blood Pressure: 98/62 Pulse: 103 Respirations: 16 Pulse Ox (%): 100 - Physical Exam General: Unresponsive Respiratory: Clear to auscultation bilaterally, Diminished Cardiovascular: No edema, Regular rate/rhythm, Edema - Studies Medications List Reviewed: Yes Assessment And Plan - Current Problems (Diagnosis) (1) Hypercapnic respiratory failure Current Visit: Yes Status: Acute Plan: Patient admitted with respiratory failure he underwent a cardiopulmonary arrest renal function seems to be improving appears to be all prerenal secondary to diuretics which have been stopped there is a possibility of pulmonary embolism patient started on heparin 2D echocardiogram titrate sat to 90% repeat arterial blood gases chest x-ray is clear white count is declining patient is still hypernatremic agree with withholding trach for now prognosis poor Qualifiers: Chronicity: unspecified Qualified Code(s): J96.92 - Respiratory failure, unspecified with hypercapnia
[2024-11-15] MEDS: Mupirocin NASAL 2 APPL/1 GM TUBE NAS SCH (20:06)
[2024-11-15 20:52] LABS: PT Prothrombin Time 15.5 SECONDS (9.4-12.5); Protime INR 1.48
--- NOTE | 2024-11-15 22:38 | PN ---
Date of Progress Note: 11/15/2024 Subjective: The patient was admitted to the hospital with hypercapnic respiratory failure. The flako ent had acute kidney injury. Creatinine trend up to 2.2 today. The patient developed bradycardia, w as coded. For almost 8 minutes, the patient had encephalopathy. Physical Examination: Vital Signs: Blood pressure 110/61, pulse of 113. Chest: Crackles, bilateral. Heart: S1, S2. Systolic murmur. Abdomen: Soft, nontender. Extremities: Plus edema. Neuro: The patient is poorly responsive. Laboratory Data: Sodium 148, potassium 3.9, bicarb 44, BUN 98, creatinine 1.7, GFR 42, calcium 8.6, magnesium 3.6, hemoglobin 10.1. ABG; pH 7.42, CO2 70. Current Medications: The patient is on include: 1.Cefepime. 2.Aspirin. 3.Levophed. 4.Carvedilol. 5.Hydralazine. Assessment And Plan: 1.Acute kidney injury secondary to poor perfusion, ATN, oliguric. We will continue to monitor the p atient. Continue blood pressure support and we will follow up. 2.Hypertension. Currently, the patient in shock. Hold all blood pressure medication. Continue Lev ophed. 3.Shock, possible cardiogenic/septic. Continue pressor. Will follow up with primary. 4.Hypercapnic respiratory failure. Continue vent support. Follow up with primary. RYAN/BRAEDEN Voice ID: [id number] Report ID: [id number]
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
[2024-11-16] MEDS: NOREPINEPHRINE BITARTRATE/D5W 4 MG/250 ML KIT IV ONE (02:32)
[2024-11-16 04:08] LABS: Absolute Eosinophils 0.1 K/uL (0-0.5); Absolute Lymphocytes (CBC) 0.8 K/uL (0.7-4.9); Absolute Monocytes 0.5 K/uL (0.1-1.3); Absolute Neutrophil 8.3 K/uL (1.8-8.0); Basophils % 0.1 % (0-1.3); Eosinophils % 1.2 % (0-4.4); Hematocrit 30.7 % (39.6-49.0); Hemoglobin 9.7 g/dL (13.6-17.9); Lymphocytes % 8.6 % (15.3-44.8); MCH 26.6 pg (27.0-35.0); MCHC 31.5 g/dL (32.0-36.0); MCV 84.3 fL (80-100); MPV 11.2 fL (7.6-11.3); Monocytes % 5.1 % (3.3-12.3); Platelets 212 thou/uL (152-406); RBC Red Blood Cell Count 3.64 M/uL (4.33-5.43); Red Cell Distribution Width 18.3 % (12.1-15.2)
[2024-11-16 04:17] LABS: PT Prothrombin Time 15.3 SECONDS (9.4-12.5); PTT, Activated Partial Thromb 51.8 SECONDS (24.3-36.9); Protime INR 1.46
[2024-11-16 04:23] LABS: Anion Gap 7.2 mEq/L (5.0-15.0); Potassium 4.2 mEq/L (3.5-5.1)
--- NOTE | 2024-11-16 07:08 | RAD REPORT ---
EXAMINATION: US bilateral LOWER EXTREMITY VENOUS DOPPLER CLINICAL INDICATION: Leg swelling TECHNIQUE: Sonographic evaluation of the veins of the lower extremity bilaterally formed.Grayscale, c olor and spectral analysis performed on all vessels COMPARISON: November 02, 2024. FINDINGS: The common femoral, superficial femoral, greater saphenous, popliteal and posterior tibial veins bila terally are compressible and demonstrate augmentation. Doppler demonstrates good flow. IMPRESSION: No evidence of deep venous thrombosis involving either lower extremity
[2024-11-16] MEDS: NA CHLORIDE 0.9% 1,000 ML IV SCH (09:00)
[2024-11-16] MEDS: NOREPINEPHRINE 8 MG in D5W 250 ML IV SCH (09:17)
[2024-11-16] MEDS: FUROSEMIDE 40 MG/4 ML VIAL IV ONE (09:56)
[2024-11-16] MEDS: FUROSEMIDE 40 MG in NA CHLORIDE 0.9% 50 ML IV ONE (10:32)
--- NOTE | 2024-11-16 12:44 | P.PN ---
Subjective Date of Service: 11/16/24 Chief Complaint: Respiratory failure Patient is off the Precedex low-dose Levophed drip renal function worse Review of Systems is unable to be obtained Physical Examination - Vital Signs Temperature: 98.4 F Blood Pressure: 118/69 Pulse: 101 Respirations: 18 Pulse Ox (%): 100 - Physical Exam General: Unresponsive Respiratory: Clear to auscultation bilaterally Cardiovascular: Edema - Studies Medications List Reviewed: Yes Assessment And Plan - Current Problems (Diagnosis) (1) Hypercapnic respiratory failure Current Visit: Yes Status: Acute Plan: Patient has respiratory failure renal function worse most likely all prerenal s econdary to diuresis continue with IV fluids titrate his FiO2 down will try weaning will also stop the cefepime possibility of interstitial nephritis labs chemistries all reviewed titrate sat down to 90% Qualifiers: Chronicity: unspecified Qualified Code(s): J96.92 - Respiratory failure, unspecified with hypercapnia
--- NOTE | 2024-11-16 14:09 | P.PN ---
Subjective Date of Service: 11/16/24 Chief Complaint: Respiratory failure Patient has been without sedation since CPR yesterday. He became more awake, opening his eyes spontaneously, and little spontaneous flicking of fingers of both hands. Blood pressure has been stable on low-dose Levophed since the CPR. No recorded fever Good urine output No gastric residual on low tube feeding rate. Physical Examination - Vital Signs Temperature: 98.4 F Blood Pressure: 121/71 Pulse: 108 Respirations: 17 Pulse Ox (%): 98 - Studies Medications List Reviewed: Yes Assessment And Plan - Plan Physical Exam General: Open eyes to verbal. Stable on the vent. HEENT: ET Tube, OG tube Neck: Supple Respiratory: Bilateral upper airway transmitted sounds. Diminished breath so unds bilaterally Cardiovascular: Normal pulses, irregularly irregular, Normal S1 S2 Gastrointestinal: Normal bowel sounds, obese abdomen Musculoskeletal: No clubbing, bilateral lower extremity lymphedema with skin lichenification and xerosis. Integumentary: Bilateral lower extremity skin liquefication and xerosis Neurology: Sedated Problem List: Acute Hypercarbic Respiratory failure secondary to Pulmonary edema Respiratory acidosis Hyponatremia secondary to volume overload Nausea/vomiting Acute on chronic diastolic heart failure Cor pulmonale Obesity hypoventilation Constipation Atrial fibrillation, chronic IDDM2 Hypertension Chronic Lymphedema with bilateral lower extremity lichenification. verrucous cobblestone papules Morbid obesity. Acute Hypercarbic Respiratory failure secondary to Pulmonary edema Respiratory acidosis Hyponatremia secondary to volume overload Nausea/vomiting remains intubated. multiple unsuccessful attempt to wean off vent. Pulm recommending trach eval ENT consulted to eval for trach placement. Dr. Adelr is planning tracheostomy tomorrow 11/17/2024.. Patient made DNR. Repeat Blood cx (11/10): NGTD; Sputum: normal respiratory farhat continue empiric IV cefepime (11/10-) Procalcitonin negative CT abdomen (11/12):Patchy bilateral dependent airspace opacities, with small bilateral layering pleural effusions. Pericystic fat stranding, raising concern for infectious/inflammatory cystitis. Repeat chest x-ray 11/15: Unchanged from previous x-ray. Titrate tube feeding. Camila gastric residual Protonix for GI prophylaxis Continue Diamox. IV lasix dcd 11/12 PEA/Asystole Cardiogenic shock Likely secondary to respiratory failure Blood pressure is stable on low-dose Levophed drip. EKG shows no ischemic changes. Possible pulm embolus. Patient is too unstable and have elevated creatinine so high risk with transportation to CT scan and also high risk for ADIN given reduced creatinine clearance. Serum creatinine level trended up. Will continue IV fluid, reassess and hopefully obtain CTA thorax to rule out PE when he is more stable and renal function improved. Intermittent albumin infusion as needed. Status post IV NS boluses. Acute on chronic diastolic heart failure Cor pulmonale Obesity hypoventilation Cardiology is following repeat CXR (11/07): bilateral pulmonary opacities similar to slightly progressive Repeat CXR (11/10): unchanged Echo (11/01): 55-60%EF, elevated filling pressure, trace TR IV lasix dcd 11/12. Patient is currently on Diamox. Status post IV NS boluses for hypotension. IV albumin as needed Monitor electrolytes and correct as needed. Constipation Patient had a bowel movement today. KUB (11/09): question dilated small bowel in LLQ vs distended sigmoid repeat KUB (11/11): nonobstructive bowel gas pattern. Low formed stool burden CT abdomen (11/12): Mild stool burden. Patchy bilateral dependent airspace opacities. Pericystic fat stranding. s/p dulcolax suppository 11/12 Atrial fibrillation, chronic Likely chronic Cardiology is following Heart rate is currently controlled. Continue to Coreg due to hypotension. On heparin drip. IDDM2 Accucheck with SSI- increased to aggressive Continue current dose Semglee. adjust tube feeds. Low tube feeding rate. Hypertension Patient is currently hypotensive. Hold Coreg. Chronic Lymphedema with bilateral lower extremity lichenification. Verrucous cobblestone papules Morbid obesity. Suspected Pseudomonas skin infection Continue local wound care with acetic acid solution and lidex cream Patient is on cefepime which should cover Pseudomonas Keep legs wrapped. Dr. Arnold, general surgeon evaluated patient. f/u outpatient at Lymphedema clinic. Hypernatremia ADIN Patient with hypotension and mild hypernatremia. Continue IV NS Monitor BMP. VTE: Lovenox Code: Full Continue ICU level of care Critical care is time spent managing patient's PEA/asystole, respiratory failure is about 54 minutes.
--- NOTE | 2024-11-16 14:19 | ECHO ---
HEIGHT: 6 ft 4 in WEIGHT: 360 lb 1.6 oz DATE OF STUDY: 11/16/[address]: Hemanth Wharton MD 2-DIMENSIONAL: YES M.MODE: YES DOPPLER: YES COLOR FLOW: YES TDS: YES PORTABLE: YES DEFINITY: NO BUBBLE STUDY: NO DIAGNOSIS: CPR, POSSIBLE PE CARDIAC HISTORY: CATHERIZATION: SURGERY: PROSTHETIC VALVE: PACEMAKER: MEASUREMENTS (cm) DIASTOLIC (NORMALS) SYSTOLIC (NORMALS) IVSd 1.2 (0.6-1.2) LA Diam 3.7 (1.9-4.0) LVEF 55-60% LVIDd 3.8 (3.5-5.7) LVIDs 3.1 (2.0-3.5) %FS 18% LVPWd 1.4 (0.6-1.2) Ao Diam 3.1 (2.0-3.7) 2 DIMENSIONAL ASSESSMENT: RIGHT ATRIUM: NORMAL LEFT ATRIUM: NORMAL RIGHT VENTRICLE: NOT WILL VISUALIZED LEFT VENTRICLE: NORMAL TRICUSPID VALVE: TRACE TRICUSPID REGURGITATION MITRAL VALVE: NORMAL PULMONIC VALVE: NOT SEEN AORTIC VALVE: NORMAL PERICARDIAL EFFUSION: NONE AORTIC ROOT: NORMAL LEFT VENTRICULAR WALL MOTION: NORMAL. DOPPLER/COLOR FLOW: NORMAL. COMMENTS: 1. NORMAL LEFT VENTRICULAR SYSTOLIC FUNCTION. LEFT VENTRICULAR EJECTION FRACTION 55-60%. NORMAL WALL MOTION. 2. RIGHT VENTRICLE NOT WELL VISUALIZED. 3. ELEVATED FILLING PRESSURE. RIGHT ATRIAL PRESSURE 15-20 mmHg. TECHNOLOGIST: APN PIERRE
[2024-11-16] MEDS ORDERED: EPINEPHrine 1 MG/10 ML SYR IV ONE (17:57)
[2024-11-16] MEDS ORDERED: SODIUM CHL 0.9% 1000 ML BAG IV ONE (17:57)
[2024-11-17 05:32] LABS: Absolute Eosinophils 0.1 K/uL (0-0.5); Absolute Lymphocytes (CBC) 0.7 K/uL (0.7-4.9); Absolute Monocytes 0.6 K/uL (0.1-1.3); Absolute Neutrophil 7.5 K/uL (1.8-8.0); Basophils % 0.3 % (0-1.3); Eosinophils % 0.7 % (0-4.4); Hematocrit 31.1 % (39.6-49.0); Hemoglobin 9.5 g/dL (13.6-17.9); Lymphocytes % 7.7 % (15.3-44.8); MCH 25.5 pg (27.0-35.0); MCHC 30.5 g/dL (32.0-36.0); MCV 83.8 fL (80-100); MPV 11.3 fL (7.6-11.3); Monocytes % 6.5 % (3.3-12.3); Neutrophils % 84.8 % (41.7-73.7); Nucleated Red Blood Cells % 0.2 % (0-0); Platelets 245 thou/uL (152-406); RBC Red Blood Cell Count 3.72 M/uL (4.33-5.43); Red Cell Distribution Width 17.8 % (12.1-15.2)
[2024-11-17 05:47] LABS: Anion Gap 6.3 mEq/L (5.0-15.0); Potassium 4.3 mEq/L (3.5-5.1)
[2024-11-17] MEDS: D5 0.45 NS 1,000 ML IV SCH (08:27)
[2024-11-17] MEDS: ALBUMIN HUM 5% 250 ML IV SCH (08:32)
[2024-11-17] MEDS: VANCOMYCIN 1 GM in NA CHLORIDE 0.9% 250 ML IVPB SCH (09:00)
--- NOTE | 2024-11-17 09:19 | P.PN ---
Date of Service: 11/16/24 The patient underwent significant change in clinical status on Wednesday morning including the need for CPR and resuscitation. Since that time he has been on Levophed and was on 70% FiO2 and a heparin drip for presumed pulmonary embolus. The patient has been deemed unstable for transport to the CT for confirmatory imaging. In review of the patient's chart he is also having worsening kidney function and is being followed by nephrology. In addition, the patient's daughter and surrogate decision-maker elected for DNR status around midday on Wednesday. The patient was evaluated on , November 16, 2024 including personal examination of the patient, confirmation of clinical status and discussion with the nursing staff. On further discussion with the primary/admitting service, it was felt the patient to be too unstable to consider surgical intervention for elective tracheostomy. The patient's duration of intubation warrants performing tracheostomy with goal of reducing the risk of long-term subglottic stenosis is balanced with the patient's tenuous medical condition at this time. We will therefore defer surgical intervention and continue to follow closely. My primary concerns with this patient are 1: Anticoagulation for presumed pulmonary embolus which significantly increases the risk of surgical bleeding, along with the need to hold anticoagulation for 12 hours prior to surgery to help mitigate this risk. Holding anticoagulation in the setting of acute pulmonary embolus could place the patient at risk for worsening clot and further compromise his cardiorespiratory status. 2: Increased oxygen requirement following acute cardiopulmonary event, 3: Overall worsening clinical status including progression into kidney failure in addition to existing respiratory failure, 4: Change of CODE STATUS including DNR which raises concerns in regards to appropriateness of surgical intervention which is unlikely to significantly alter the current clinical course and poor prognosis of his current condition.
[2024-11-17 11:06] LABS: C-ANCA Anti-Proteinase 3 <1.0 AI (<1.0); P-ANCA Anti-Myeloperoxidase Ab <1.0 AI (<1.0)
[2024-11-17] MEDS: FUROSEMIDE 40 MG in NA CHLORIDE 0.9% 50 ML IV ONE (13:44)
--- NOTE | 2024-11-17 15:41 | P.PN ---
Subjective Date of Service: 11/17/24 Chief Complaint: Respiratory failure Patient unresponsive minimally responsive without sedation. Blood pressure has been stable on low, off pressors. No recorded fever Good urine output High gastric residual on low tube feeding rate, about 300 mL this morning. Physical Examination - Vital Signs Temperature: 98.4 F Blood Pressure: 100/53 Pulse: 100 Respirations: 23 Pulse Ox (%): 92 - Studies Medications List Reviewed: Yes Assessment And Plan - Plan Physical Exam General: Open eyes to verbal. Stable on the vent. HEENT: ET Tube, OG tube Neck: Supple Respiratory: Bilateral upper airway transmitted sounds. Diminished breath sounds bilaterally Cardiovascular: Normal pulses, irregularly irregular, Normal S1 S2 Gastrointestinal: Normal bowel sounds, obese abdomen Musculoskeletal: No clubbing, bilateral lower extremity lymphedema with skin lic henification and xerosis. Bilateral upper extremity edema. Integumentary: Bilateral lower extremity skin liquefication and xerosis Neurology: Minimally responsive, open eyes to tactile stimulus. Problem List: Acute Hypercarbic Respiratory failure secondary to Pulmonary edema Respiratory acidosis Hyponatremia secondary to volume overload Nausea/vomiting Acute on chronic diastolic heart failure Cor pulmonale Obesity hypoventilation Constipation Atrial fibrillation, chronic IDDM2 Hypertension Chronic Lymphedema with bilateral lower extremity lichenification. verrucous cobblestone papules Morbid obesity. Acute Hypercarbic Respiratory failure secondary to Pulmonary edema Respiratory acidosis Hyponatremia secondary to volume overload Nausea/vomiting remains intubated-day 15 multiple unsuccessful attempt to wean off vent. Pulm recommending trach eval ENT consulted to eval for trach placement. Dr. Adler evaluated patient. Patient is unstable for tracheostomy placement. He has multiorgan failure including worsening kidney function, respiratory failure, cardiogenic shock with hypotension after PEA. Patient made DNR by his daughter Repeat Blood cx (11/10): NGTD; Sputum: normal respiratory farhat Patient is on antibiotics Procalcitonin negative CT abdomen (11/12):Patchy bilateral dependent airspace opacities, with small bilateral layering pleural effusions. Pericystic fat stranding, raising concern for infectious/inflammatory cystitis. High gastric residuals suggest some degree of gastroparesis. Patient is on Protonix. Patient is also on Lasix drip per nephrology. Overall very poor prognosis. IV lasix dcd 11/12 PEA/Asystole Cardiogenic shock Likely secondary to respiratory failure Patient is borderline hypotensive without vasopressors. EKG shows no ischemic changes. Possible pulm embolus. Patient is too unstable and have elevated creatinine so high risk with transportation to CT scan and also high risk for ADIN given reduced creatinine clearance. Serum creatinine level continues to trend up despite IV rehydration. Will continue IV fluid, reassess and hopefully obtain CTA thorax to rule out PE when he is more stable and renal function improved. Intermittent albumin infusion as needed. Status post IV NS boluses. Acute on chronic diastolic heart failure Cor pulmonale Obesity hypoventilation Cardiology is following repeat CXR (11/07): bilateral pulmonary opacities similar to slightly progressive Repeat CXR (11/10): unchanged Echo (11/01): 55-60%EF, elevated filling pressure, trace TR IV lasix dcd 11/12 and placed on diamox. Diamox switched back to IV Lasix drip 11/16 Status post IV NS boluses for hypotension. IV albumin as needed Monitor electrolytes and correct as needed. Constipation Patient had a bowel movement today. KUB (11/09): question dilated small bowel in LLQ vs distended sigmoid repeat KUB (11/11): nonobstructive bowel gas pattern. Low formed stool burden CT abdomen (11/12): Mild stool burden. Patchy bilateral dependent airspace opacities. Pericystic fat stranding. s/p dulcolax suppository 11/12 Atrial fibrillation, chronic Likely chronic Cardiology is following Heart rate is currently controlled. Coreg discontinued due to hypotension. On heparin drip. IDDM2 Accucheck with SSI- increased to aggressive Continue current dose Semglee. adjust tube feeds. Low tube feeding rate and monitor gastric residual volume. Hypertension Patient is currently hypotensive. Coreg is on hold Chronic Lymphedema with bilateral lower extremity lichenification. Verrucous cobblestone papules Morbid obesity. Suspected Pseudomonas skin infection Continue local wound care with acetic acid solution and lidex cream Patient is on cefepime which should cover Pseudomonas Keep legs wrapped. Dr. Arnold, general surgeon evaluated patient. f/u outpatient at Lymphedema clinic. Hypernatremia ADIN Patient with hypotension. Hypernatremia resolved. ADIN is worsening. Continue IV NS and Lasix drip Nephrology is following. Monitor BMP. VTE: Lovenox Code: Full Continue ICU level of care Overall poor prognosis. I tried reaching her daughter to discuss goals of care, patient's prognosis on [phone]. I left a message for call back.
--- NOTE | 2024-11-17 18:45 | P.PN ---
Subjective Date of Service: 11/17/24 Chief Complaint: Respiratory failure with hypotension Patient is currently on a ventilator hypotensive started on a Levophed drip unresponsive Review of Systems is unable to be obtained Physical Examination - Vital Signs Temperature: 98.4 F Blood Pressure: 112/68 Pulse: 113 Respirations: 13 Pulse Ox (%): 97 - Physical Exam General: Unresponsive Respiratory: Clear to auscultation bilaterally, Diminished Cardiovascular: Edema - Studies Medications List Reviewed: Yes Assessment And Plan - Current Problems (Diagnosis) (1) Hypercapnic respiratory failure Current Visit: Yes Status: Acute Plan: Patient has chronic respiratory failure unable to wean off the ventilator currently hypotensive renal function is worse on IV fluids patient is now on Levophed previously abnormal liver function test multiorgan failure oxygenation satisfactory patient is on heparin high risk for thromboembolism at this time he could be in septic shock echocardiogram reviewed unable to visualize right ventricle pulmonary artery pressure is elevated plan to treat with broad- spectrum antibiotics Merrem vancomycin and Diflucan high risk for a fungal superinfection prognosis is poor consider withdrawal of care to discuss with relative trial of IV hydrocortisone Qualifiers: Chronicity: unspecified Qualified Code(s): J96.92 - Respiratory failure, unspecified with hypercapnia
[2024-11-17] MEDS: VANCOMYCIN 3 GM in NA CHLORIDE 0.9% 500 ML IVPB ONE (19:31)
[2024-11-17] MEDS: Meropenem 500 MG in NA CHLORIDE 0.9% 100 ML IV SCH (19:53)
[2024-11-17] MEDS: FLUCONAZOLE 400 MG IVPB 400 MG/200 ML BAG IV SCH (19:56)
[2024-11-17] MEDS: HYDROCORTISONE SUC 100 MG INJ IV SCH (20:02)
[2024-11-17] MEDS: WATER FOR INJ,STERILE 10 ML IV SCH (20:03)
[2024-11-17 22:34] LABS: Specific Gravity 1.015 (1.005-1.030); Urine Bacteria <20 /HPF (<20); Urine Bilirubin 1+ (Negative); Urine Blood 3+ (Negative); Urine Clarity Extremely Turbid (Clear); Urine Color Orange (Yellow); Urine Crystals Unidentified Many /HPF (None Seen); Urine Culture Reflex Order REFLEXED; Urine Glucose NEGATIVE (Negative); Urine Ketones NEGATIVE (Negative); Urine Microscopic Reflex YN ORDER UMIC; Urine Mucus Slight /HPF (None Seen); Urine Nitrite NEGATIVE (Negative); Urine Protein 1+ (Negative); Urine RBC >50 /HPF (None Seen); Urine Urobilinogen 2+ (Normal); Urine WBC >50 /HPF (<5); Urine WBC Clump Many /HPF (None Seen); Urine Yeast (Budding) Many /HPF (None Seen)
--- NOTE | 2024-11-18 00:40 | PN ---
Date of Progress Note: 11/17/2024 Subjective: The patient is admitted to ICU. He has hypercapnic respiratory failure and acute kidney injury. Creatinine level is trending up. BUN is elevated. The patient is on Lasix for volume control. He has peripheral edema and respiratory failure. ROS: unobtainable due to patient condition. Physical Examination: Lungs: Bilateral rhonchi. Heart: S1, S2. Abdomen: Soft. Extremities: Edema present. Impression And Plan: 1. Acute kidney injury secondary to renal hypoperfusion, acute tubular necrosis. The patient is nonoliguric. The patient will continue diuretics. 2. Hypertension. Currently, patient is in shock and blood pressure medication is on hold. Levophed was started for severe hypotension and shock. 3. Cardiogenic shock versus septic shock. Continue pressors. 4. Hypercapnic respiratory failure. Continue vent support per primary team. EB/MODL Voice ID: [id number] Report ID: [id number]
[2024-11-18 05:08] LABS: Absolute Basophils 0.1 K/uL (0-0.5); Absolute Lymphocytes (CBC) 0.8 K/uL (0.7-4.9); Absolute Monocytes 0.6 K/uL (0.1-1.3); Absolute Neutrophil 9.8 K/uL (1.8-8.0); Basophils % 0.5 % (0-1.3); Eosinophils % 0.2 % (0-4.4); Hematocrit 30.6 % (39.6-49.0); Hemoglobin 9.2 g/dL (13.6-17.9); Lymphocytes % 6.8 % (15.3-44.8); MCH 25.3 pg (27.0-35.0); MCV 84.3 fL (80-100); Monocytes % 5.7 % (3.3-12.3); Neutrophils % 86.8 % (41.7-73.7); Platelets 268 thou/uL (152-406); RBC Red Blood Cell Count 3.63 M/uL (4.33-5.43); Red Cell Distribution Width 18.1 % (12.1-15.2)
[2024-11-18 05:38] LABS: Albumin 1.4 g/dL (3.4-5.0); Albumin/Globulin Ratio 0.3 (1.1-1.8); Anion Gap 7.4 mEq/L (5.0-15.0); Bilirubin Total 1.8 mg/dL (0.2-1.0); Globulin 5.5 g/dL (2.3-3.5); Magnesium 3.5 mg/dL (1.6-2.4); Phosphorus 4.5 mg/dL (2.5-4.9); Potassium 4.4 mEq/L (3.5-5.1); Protein, Total 6.9 g/dL (6.4-8.2)
--- NOTE | 2024-11-18 07:30 | RAD REPORT ---
Procedure: Chest Single View HISTORY: Cough COMPARISON: none FINDINGS: Endotracheal tube has its tip 1.5 cm above the top of the aortic arch area Nasogastric tube in the gastric fundus. Mild to moderate bilateral pulmonary opacities. No significant pleural effusion noted. The heart is normal size. IMPRESSION: Mild to moderate bilateral pulmonary opacities could represent pulmonary edema or pneumonia
[2024-11-18 11:47] LABS: Band Neutrophils 4 % (0-1); Differential Total Cells Count 100; Lymphocytes 7 % (15-42); Metamyelocytes 1 % (0-0); Monocytes 5 % (0-10); Platelet Estimate ADEQ; Segmented Neutrophils 83 % (40-80)
[2024-11-18 11:48] LABS: Anisocytosis 1+; Blood Morphology Comment NOTED (NOT SEEN)
[2024-11-18] MEDS ORDERED: FUROSEMIDE 40 MG/4 ML VIAL IV ONE (13:22)
--- NOTE | 2024-11-18 14:25 | RAD REPORT ---
Procedure: Chest Single View HISTORY: Shortness of breath COMPARISON: November 18, 2024 FINDINGS: Tip of an endotracheal tube 1.9 cm above the top of the aortic arch. NG tube in stomach. PICC line ne ar the junction of the brachiocephalic vein and SVC Mild worsening in the right and mild improvement in left pulmonary opacities. Small pleural effusions. Cardia megaly IMPRESSION: Mild worsening in right and mild improvement in left pulmonary opacities may represent pulmonary tona a
[2024-11-18 14:33] LABS: PT Prothrombin Time 15.9 SECONDS (9.4-12.5); PTT, Activated Partial Thromb 49.9 SECONDS (24.3-36.9); Protime INR 1.52
--- NOTE | 2024-11-18 14:36 | P.PN ---
Subjective Date of Service: 11/18/24 Chief Complaint: Respiratory failure with hypotension Patient patient is unresponsive without sedation on the vent Blood pressure is currently low sedating vasopressors. No recorded fever. Patient had bleeding coming from the mouth and ET tube this afternoon along with desaturation. He still has high gastric residual Patient has diarrhea. Physical Examination - Vital Signs Temperature: 98.7 F Blood Pressure: 116/95 Pulse: 107 Respirations: 28 Pulse Ox (%): 89 - Studies Medications List Reviewed: Yes Assessment And Plan - Plan Physical Exam General: Currently unresponsive on the vent without sedation. HEENT: ET Tube, OG tube, bleeding noted in the ET tube. Rattling sound Respiratory: Bilateral upper airway transmitted sounds. Diminished breath sounds bilaterally Cardiovascular: Normal pulses, irregularly irregular, Normal S1 S2 Gastrointestinal: Normal bowel sounds, obese abdomen Musculoskeletal: Bilateral lower extremity lymphedema with skin lichenification and xerosis. Bilateral upper extremity edema. Neurology: Unresponsive. Problem List: Acute Hypercarbic Respiratory failure secondary to Pulmonary edema Respiratory acidosis Hyponatremia secondary to volume overload Nausea/vomiting Acute on chronic diastolic heart failure Cor pulmonale Obesity hypoventilation Constipation Atrial fibrillation, chronic IDDM2 Hypertension Chronic Lymphedema with bilateral lower extremity lichenification. verrucous cobblestone papules Morbid obesity. Diarrhea GI bleed vs pulmonary hemorrhage Acute Hypercarbic Respiratory failure secondary to Pulmonary edema Respiratory acidosis Hyponatremia secondary to volume overload Nausea/vomiting remains intubated-day 16 multiple unsuccessful attempt to wean off vent. Pulm recommending trach eval ENT consulted to eval for trach placement. Dr. Adler evaluated patient. Patient is unstable for tracheostomy placement. He has multiorgan failure including worsening kidney function, respiratory failure, cardiogenic shock with hypotension after PEA. Patient made DNR by his daughter Repeat Blood cx (11/10): NGTD; Sputum: normal respiratory farhat Patient is on antibiotics CT abdomen (11/12):Patchy bilateral dependent airspace opacities, with small bilateral layering pleural effusions. Pericystic fat stranding, raising concern for infectious/inflammatory cystitis. High gastric residuals suggest some degree of gastroparesis. Patient is on Protonix. Patient received Lasix drip yesterday after which diuretics were discontinued. Mental status decline compared to yesterday along with hemorrhage from the mouth. GI bleed versus pulmonary hemorrhage. Obtain chest x-ray, heparin drip discontinued. Overall very poor prognosis. PEA/Asystole Cardiogenic shock Likely secondary to respiratory failure Patient is borderline hypotensive without vasopressors. EKG shows no ischemic changes. Pulmonary embolism was ruled out. Patient is too unstable and have elevated creatinine so high risk with transp ortation to CT scan and also high risk for ADIN given reduced creatinine clearance. Serum creatinine level continues to trend up despite IV rehydration. Patient is on IV fluid maintenance given that he is not tolerating tube feeding with high gastric residuals. Intermittent albumin infusion as needed. Poor prognosis. Acute on chronic diastolic heart failure Cor pulmonale Obesity hypoventilation Cardiology is following repeat CXR (11/07): bilateral pulmonary opacities similar to slightly progressive Repeat CXR (11/10): unchanged Echo (11/01): 55-60%EF, elevated filling pressure, trace TR IV lasix dcd 11/12 and placed on diamox. Diamox switched back to IV Lasix drip 11/16. Diuretics currently discontinue Status post IV NS boluses for hypotension. IV albumin as needed Monitor electrolytes and correct as needed. Constipation Patient had a bowel movement today. KUB (11/09): question dilated small bowel in LLQ vs distended sigmoid repeat KUB (11/11): nonobstructive bowel gas pattern. Low formed stool burden CT abdomen (11/12): Mild stool burden. Patchy bilateral dependent airspace opacities. Pericystic fat stranding. s/p dulcolax suppository 11/12 Atrial fibrillation, chronic Likely chronic Cardiology is following Heart rate is currently controlled. Coreg discontinued due to hypotension. On heparin drip. IDDM2 Accucheck with SSI- increased to aggressive Continue current dose Semglee. adjust tube feeds. Low tube feeding rate and monitor gastric residual volume. Hypertension Patient is currently hypotensive. Coreg is on hold. Chronic Lymphedema with bilateral lower extremity lichenification. Verrucous cobblestone papules Morbid obesity. Suspected Pseudomonas skin infection Continue local wound care with acetic acid solution and lidex cream Patient is on cefepime which should cover Pseudomonas Keep legs wrapped. Dr. Arnold, general surgeon evaluated patient. f/u outpatient at Lymphedema clinic. Hypernatremia ADIN Patient with hypotension. Hypernatremia resolved. ADIN is worsening, with worsening azotemia. Continue IV D5 1/2 NS. Nephrology is following. Monitor BMP. VTE: Anticoagulation contraindicated given bleeding from the mouth. Code: Full Continue ICU level of care
[2024-11-18] MEDS: VANCOMYCIN 2 GM in NA CHLORIDE 0.9% 500 ML IVPB SCH (17:21)
[2024-11-18] MEDS: NOREPINEPHRINE BITARTRATE/D5W 4 MG/250 ML KIT IV ONE (21:28)
[2024-11-18] MEDS: NOREPINEPHRINE 4 MG in D5W 250 ML IV SCH (21:42)
--- NOTE | 2024-11-19 00:05 | PN ---
Date of Progress Note: 11/18/2024 Chief Complaint: Respiratory failure, hypotension. Subjective: The patient is on ventilator support as well as on Levophed drip. He has anasarca, flui d overload. He is unable to provide review of systems. Review of Systems: Cannot be obtained. Physical Examination: Lungs: Diminished. General: The patient is unresponsive. Cardiovascular: Peripheral edema, anasarca. Impression And Plan: 1.Acute kidney injury in setting of respiratory failure, congestive heart failure, septic shock. Th e patient has chronic respiratory failure, was unable to be weaned on ventilator. 2.The patient has hypotension. Renal function is declining. The patient may need hemodialysis or C PACKAGE MAKER. The patient is on lidocaine drip. Antibiotic for possible septic shock and echocardiogram was done to evaluate for systolic dysfunction. 3.The patient has pulmonary hypertension, risk of thromboembolic condition. Echo was done and pulmo nary artery pressure was elevated. The patient is on broad-spectrum antibiotic meropenem and vancomy bárbara as well as antifungal treatment with Diflucan. The patient was treated with Lasix, although ther e is a high BUN/creatinine ratio and worsening of renal function. Diuretic is on hold. The patient may require renal replacement therapy if renal function does not improve over the next 48 hours. The patient is critically ill and prognosis is guarded. 4.Cardiogenic shock. The patient will continue pressors. EB/MODL Voice ID: [id number] Report ID: [id number]
[2024-11-19 05:49] LABS: Absolute Lymphocytes (CBC) 0.8 K/uL (0.7-4.9); Absolute Monocytes 0.5 K/uL (0.1-1.3); Absolute Neutrophil 10.9 K/uL (1.8-8.0); Basophils % 0.1 % (0-1.3); Eosinophils % 0.1 % (0-4.4); Hematocrit 30.1 % (39.6-49.0); Hemoglobin 9.2 g/dL (13.6-17.9); Lymphocytes % 6.9 % (15.3-44.8); MCH 25.3 pg (27.0-35.0); MCHC 30.7 g/dL (32.0-36.0); MCV 82.4 fL (80-100); MPV 10.5 fL (7.6-11.3); Monocytes % 3.8 % (3.3-12.3); Neutrophils % 89.1 % (41.7-73.7); Nucleated Red Blood Cells % 0.1 % (0-0); Platelets 339 thou/uL (152-406); RBC Red Blood Cell Count 3.65 M/uL (4.33-5.43)
[2024-11-19 06:08] LABS: Anion Gap 9.8 mEq/L (5.0-15.0); Magnesium 3.4 mg/dL (1.6-2.4); Phosphorus 3.9 mg/dL (2.5-4.9); Potassium 3.8 mEq/L (3.5-5.1)
[2024-11-19] MEDS: KCL 20 MEQ/100 mL IVPB 20 MEQ/100 ML BAG IV ONE (06:35)
--- NOTE | 2024-11-19 07:19 | RAD REPORT ---
EXAM: Chest Single View HISTORY: rsp failure COMPARISON: None. FINDINGS: LUNGS/PLEURA: Widespread airspace disease bilaterally, left eccentric. Probable left pleural effusion . MEDIASTINUM: The mediastinal silhouette is within normal limits. CARDIAC: Stable size and configuration. UPPER ABDOMEN: No significant abnormality. BONES: No acute abnormality. LINES/TUBES/OTHER: ET tube just above the aortic arch in satisfactory position. Enteric tube in the s tomach. IMPRESSION: Similar aeration of lungs bilaterally with probable left pleural effusion and pulmonary edema. Suppor t apparatus in satisfactory position.
--- NOTE | 2024-11-19 10:01 | P.PN ---
Subjective Date of Service: 11/19/24 Chief Complaint: Respiratory failure with hypotension Patient is more alert today responsive doses of vasopressors Review of Systems is unable to be obtained Physical Examination - Vital Signs Temperature: 98.2 F Blood Pressure: 134/111 Pulse: 105 Respirations: 20 Pulse Ox (%): 95 - Physical Exam General: Alert, Cooperative Respiratory: Clear to auscultation bilaterally, Diminished Cardiovascular: Regular rate/rhythm, Edema - Studies Medications List Reviewed: Yes Assessment And Plan - Current Problems (Diagnosis) (1) Hypercapnic respiratory failure Current Visit: Yes Status: Acute Plan: Patient has chronic respiratory failure he is more alert responsive today renal function creatinine is a little bit lower BUN has increased cultures are so far negative DC hydrocortisone plan to wean off vasopressors abnormal chest x-ray possible left lower lobe infiltrate versus effusion continue with broad-spectrum antibiotic urine culture seems to be abnormal ID pending sputum cultures ordered continue with broad-spectrum antibiotic currently on 40% FiO2 try some weaning Qualifiers: Chronicity: unspecified Qualified Code(s): J96.92 - Respiratory failure, unspecified with hypercapnia
[2024-11-19] MEDS: FUROSEMIDE 100 MG in NA CHLORIDE 0.9% 90 ML IV SCH (13:45)
--- NOTE | 2024-11-19 14:06 | P.PN ---
Subjective Date of Service: 11/19/24 Chief Complaint: Respiratory failure with hypotension Patient is more responsive today, opens his eyes spontaneously. He is currently on pressors. No recorded fever. Patient still has diarrhea. Serum creatinine stabilized but BUN trended up. Patient did not tolerate SIMV today. Physical Examination - Vital Signs Temperature: 98.2 F Blood Pressure: 128/95 Pulse: 108 Respirations: 20 Pulse Ox (%): 97 - Studies Medications List Reviewed: Yes Assessment And Plan - Plan Physical Exam General: More responsive, NAD HEENT: ET Tube, OG tube, bleeding noted in the ET tube. Rattling sound Respiratory: Bilateral upper airway transmitted sounds. Diminished breath sounds bilaterally Cardiovascular: Normal pulses, irregularly irregular, Normal S1 S2 Gastrointestinal: Normal bowel sounds, obese abdomen, fecal collecting system in place. Musculoskeletal: Bilateral lower extremity lymphedema with skin lichenification and xerosis. Bilateral upper extremity edema. Neurology: Open eyes spontaneously, able to flex her fingers of both hands. Problem List: Acute Hypercarbic Respiratory failure secondary to Pulmonary edema Respiratory acidosis Hyponatremia secondary to volume overload Nausea/vomiting Acute on chronic diastolic heart failure Cor pulmonale Obesity hypoventilation Constipation Atrial fibrillation, chronic IDDM2 Hypertension Chronic Lymphedema with bilateral lower extremity lichenification. verrucous cobblestone papules Morbid obesity. Diarrhea GI bleed vs pulmonary hemorrhage Acute Hypercarbic Respiratory failure secondary to Pulmonary edema Respiratory acidosis Hyponatremia secondary to volume overload Nausea/vomiting remains intubated-day 16 multiple unsuccessful attempt to wean off vent. Pulm recommending trach eval ENT consulted to eval for trach placement. Dr. Adler evaluated patient. Patient is unstable for tracheostomy placement. He has multiorgan failure including worsening kidney function, respiratory failure, cardiogenic shock with hypotension after PEA. Patient made DNR by his daughter Repeat Blood cx (11/10): NGTD; Sputum: normal respiratory farhat Patient is on antibiotics CT abdomen (11/12):Patchy bilateral dependent airspace opacities, with small bilateral layering pleural effusions. Pericystic fat stranding, raising concern for infectious/inflammatory cystitis. High gastric residuals suggest some degree of gastroparesis. Continue Protonix Patient received Lasix drip yesterday after which diuretics were discontinued. Nephrology recommended resuming Lasix drip. Minimal bloodstained fluid suctioned from the ET tube. GI bleed versus pulmonary hemorrhage. Repeat chest x-ray shows no significant change. Heparin drip discontinued. Overall very poor prognosis. PEA/Asystole Cardiogenic shock Likely secondary to respiratory failure Patient is borderline hypotensive without vasopressors. EKG shows no ischemic changes. Pulmonary embolism was ruled out. Patient is too unstable and have elevated creatinine so high risk with transportation to CT scan and also high risk for ADIN given reduced creatinine clearance. Serum creatinine level continues to trend up despite IV rehydration. Patient is on IV fluid maintenance given that he is not tolerating tube feeding with high gastric residuals. Intermittent albumin infusion as needed. Poor prognosis. Acute on chronic diastolic heart failure Cor pulmonale Obesity hypoventilation Cardiology is following repeat CXR (11/07): bilateral pulmonary opacities similar to slightly progressive Repeat CXR (11/10): unchanged Echo (11/01): 55-60%EF, elevated filling pressure, trace TR IV lasix dcd 11/12 and placed on diamox. Diamox switched back to IV Lasix drip 11/16. Diuretics discontinued on 11/17, resumed 11/19 Status post IV NS boluses for hypotension. IV albumin as needed Monitor electrolytes and correct as needed. Constipation Patient now has diarrhea with fecal management system in place. Atrial fibrillation, chronic Likely chronic Cardiology is following Heart rate is currently controlled. Coreg discontinued due to hypotension. On heparin drip. IDDM2 Accucheck with SSI Continue current dose Semglee. adjust tube feeds. Low tube feeding rate and monitor gastric residual volume. Hypertension Patient is currently hypotensive and now on vasopressors. Coreg is on hold. Chronic Lymphedema with bilateral lower extremity lichenification. Verrucous cobblestone papules Morbid obesity. Suspected Pseudomonas skin infection Continue local wound care with acetic acid solution and lidex cream Patient is on cefepime which should cover Pseudomonas Keep legs wrapped. Dr. Arnold, general surgeon evaluated patient. f/u outpatient at Lymphedema clinic. Hypernatremia ADIN Patient with hypotension on vasopressors Hypernatremia resolved. Serum creatinine stable from yesterday but BUN continue to rise. Continue IV D5 1/[address] Thompson recommended initiating dialysis and Lasix drip. Monitor BMP. VTE: Anticoagulation contraindicated given bleeding from the mouth. Code: Full Continue ICU level of care Critical care time spent managing the patient was in the azotemia, ADIN, hypotension, and respiratory failure was about 41 minutes.
--- NOTE | 2024-11-19 16:26 | P.PN ---
Date of Service: 11/19/24 I spoke with care team including Gen Surg and nursing staff about condition changes and updates. Patient was having bleeding from IV sites and from ETT and the heparin drip was stopped. He was on Levophed briefly yesterday but has been off since early this morning. His vent setting have required some adjustments but current FiO2 is decreased to 40%. Tube feeds were stopped due to high residuals and liquid stool output. He is pending placement of dialysis catheter and with improved clinical status, it is logical to proceed with tracheotomy placement as the same time. Will plan for tracheotomy in OR tomorrow morning immediately following dialysis catheter but Dr Arnold.
--- NOTE | 2024-11-19 20:50 | PN ---
Date of Progress Note: 11/19/2024 Chief Complaint: Respiratory failure, acute kidney injury, anasarca, fluid overload, congestive heart failure, pulmonary edema. Subjective: The patient remains intubated. He was on Levophed with low dose for blood pressure support. He has anasarca, fluid overload. Review of Systems: He cannot provide review of systems. Physical Examination: Lungs: Diminished. General: The patient not in acute distress Abdomen : soft NT . Cardiovascular: S1, S2 Peripheral edema, anasarca. Impression And Plan: 1. Acute kidney injury in the setting of respiratory failure, congestive heart failure, septic shock. 2. The patient has chronic respiratory failure, was unable to be weaned off, on ventilator. 3. The patient has hypotension. 4. Renal function is declining. The patient was on Lasix IV injection. Currently, he is on Lasix drip for volume control. Plan is to start renal replacement therapy. The patient may need CRRT. Continue to monitor blood pressure closely. 5. Continue antibiotics for possible septic shock. Echocardiogram was done to evaluate for systolic dysfunction. 6. The patient has pulmonary hypertension, risk of thromboembolic condition. Echo was done and pulmonary artery pressure was elevated. Further recommendation from Primary Team and Cardiology. 7. The patient is on broad-spectrum antibiotics with meropenem and vancomycin as well as antifungal treatment with Diflucan. The patient will continue Lasix. Today, he was started on Lasix drip. Plan is to order dialysis catheter and start hemodialysis. YOBANY/BRAEDEN Voice ID: [id number] Report ID: [id number] ERI
[2024-11-20 05:54] LABS: Absolute Eosinophils 0.1 K/uL (0-0.5); Absolute Lymphocytes (CBC) 1.6 K/uL (0.7-4.9); Absolute Monocytes 0.7 K/uL (0.1-1.3); Absolute Neutrophil 14.8 K/uL (1.8-8.0); Basophils % 0.1 % (0-1.3); Eosinophils % 0.8 % (0-4.4); Hematocrit 32.5 % (39.6-49.0); Hemoglobin 10.4 g/dL (13.6-17.9); Lymphocytes % 9.3 % (15.3-44.8); MCH 25.7 pg (27.0-35.0); MCHC 32.1 g/dL (32.0-36.0); MCV 80.1 fL (80-100); MPV 10.2 fL (7.6-11.3); Monocytes % 4.1 % (3.3-12.3); Neutrophils % 85.7 % (41.7-73.7); Nucleated Red Blood Cells % 0.2 % (0-0); Platelets 364 thou/uL (152-406); RBC Red Blood Cell Count 4.06 M/uL (4.33-5.43); Red Cell Distribution Width 17.6 % (12.1-15.2)
[2024-11-20] MEDS: SUCCINYLCHOLINE 20 MG/ML (10 ML) IV ONE (06:29)
[2024-11-20] MEDS: HEPARIN 5000 UNIT/ML 1 ML VIAL ONE (06:33)
[2024-11-20] MEDS: NS 0.9% VIAL 10 ML ONE (06:33)
[2024-11-20] MEDS ORDERED: EPHEDRINE SULF 50 MG/ML VIAL ONE (06:34)
[2024-11-20] MEDS ORDERED: NS 0.9% VIAL 20 ML ONE (06:34)
[2024-11-20] MEDS ORDERED: Phenylephrine HCl 10 MG/ML 1 ML VIAL ONE (06:34)
[2024-11-20] MEDS ORDERED: VECURONIUM 10 MG/VIAL IV ONE ×2 (06:34→08:42)
[2024-11-20] MEDS: NA CHLORIDE 0.9% 100 ML ONE (06:35)
[2024-11-20] MEDS ORDERED: MIDAZOLAM HCL 2 MG/2 ML INJ ONE (06:35)
[2024-11-20] MEDS: LIDOCAINE HCL/EPINEPHRINE 20 ML MDV ONE ×2 (06:35→08:05)
[2024-11-20] MEDS: NA CHLORIDE 0.9% 1,000 ML ONE (07:10)
--- NOTE | 2024-11-20 07:54 | RAD REPORT ---
EXAMINATION: ONE VIEW CHEST XR CLINICAL INDICATION: rsp failure TECHNIQUE: Frontal chest projection is submitted. Examination is limited by patient positioning and t echnique. COMPARISON: 11/19/2024 FINDINGS: Tip of the endotracheal tube is above the alfred the level of the clavicular heads inferior margin. E nteric tube descends into the upper abdomen. Left-sided PICC line has its tip probably in the brachiocephalic vein. Moderate bilateral pulmonary opacities seen, likely pulmonary edema or pneumoni a. Heart is moderately enlarged.
[2024-11-20 08:00] LABS: Magnesium 3.4 mg/dL (1.6-2.4); Phosphorus 2.3 mg/dL (2.5-4.9)
[2024-11-20 08:14] LABS: Blood Morphology Comment NOT SEEN (NOT SEEN); Platelet Estimate ADEQ; Platelets Clumped NOTED; Toxic Granulation 1+; White Blood Cell Scan OK (OK)
--- NOTE | 2024-11-20 08:14 | RAD REPORT ---
EXAM: Fluoroscopy use, Fluoroscopy <1 Hour HISTORY: HD CATH PLCMNT COMPARISON: None FINDINGS: Multiple images were sent to PACS, during a fluoroscopically guided procedure. No radiologi st was involved in protocoling or performance of the study, and no radiologist was present for the duration of the procedure. No interpretation of the saved images will be provided. Total fluoroscopy time: 1.4 minutes. IMPRESSION: Documentation of fluoroscopy use as above.
--- NOTE | 2024-11-20 08:16 | P.OP ---
Date of Service: 11/20/24 Preop diagnosis: Acute renal failure, respiratory failure Postop diagnosis: Same Procedure performed: Placement of tunneled dialysis catheter in the right IJ, Doppler, fluoroscopy Surgeon: Jeremiah Arnold MD Quilting Supervisor: Pamela JIMÉNEZ Estimated blood loss: Minimal Specimen: None Findings: Difficult anatomy Anesthesia: General Complications: None Drains: None Fluids and blood products: Nonapplicable Disposition: After I finished the case Dr. Adler proceeded to perform a tracheotomy and then the patient will be taken back to ICU Operative note: Patient brought to the OR intubated. Patient placed in the supine position and general anesthesia began. Patient prepped and draped in usual condition. Marcaine 0.5% infiltrated locally. Doppler device used to identify the right internal jugular vein. It was very small. Accidentally, the carotid artery was entered once and this was confirmed with fluoroscopy. The wire was removed and pressure was applied. There was no hematoma or bleeding noted. On the subsequent attempt, the right IJ was finally accessed with an 18- gauge needle. Guidewire passed and position confirmed with fluoroscopy. A 1 cm counterincision made on the right anterior chest and a tunneling device used to tunnel the catheter between that wound and the neck wound. Seldinger technique used. Internal jugular vein dilated. Then via the sheath introducer the tip of the catheter placed in the SVC right atrial junction under fluoroscopy. Good blood flow obtained. Catheter flushed with heparin and packed with heparin. 3- 0 chromic used to approximate subcutaneous tissue and close skin. 3-0 nylon used to secure the tube to the chest wall. Sterile dressing applied. Dr. Adler proceeded with her tracheotomy procedure. Patient will be taken back to ICU after the tracheotomy. Chest x-ray has been ordered. CC:
[2024-11-20] MEDS ORDERED: NS 0.9% VIAL 10 ML ONE (08:42)
[2024-11-20] MEDS: Meropenem 1,000 MG in NA CHLORIDE 0.9% 100 ML IV SCH (09:00)
[2024-11-20] MEDS ORDERED: Mastisol Adhesive Liq ONE (09:05)
--- NOTE | 2024-11-20 09:18 | P.OP ---
Drill Press Operator Numerical Control: Pamela vargas Preoperative diagnosis: Respiratory failure and prolonged intubation Postoperative diagnosis: Same Primary procedure: Tracheostomy Anesthesia: General Estimated blood loss: Less than 5 cc Specimen: Sputum culture Findings: Difficult exposure due to very prominent anterior jugular veins Operative Technique: I resumed care of the patient from Dr. Arnold following initial procedure. The patient had previously been prepped with chlorhexidine and the drapes were rearranged to optimize exposure to the anterior neck. 1-1/2 cc of 1% lidocaine with epinephrine were injected into the skin between the cricoid cartilage and sternal notch. An incision was made using the Bovie cautery of approximately the 2 cm. Subcutaneous tissue was encountered and a approximately 1.5 x 1.5 x 1.5 mass of adipose tissue was excised to improve exposure. Judicious dissection revealed bilateral anterior jugular veins of approximately 4 to 5 mm diameter. These veins were carefully in the midline and retracted laterally allowing visualization of the strap muscles which were then retracted laterally. The cricoid cartilage was easily palpated but the thyroid isthmus was thick and obscuring the upper portion of the trachea. The LigaSure was used to divide the thyroid isthmus for exposure of the first and second tracheal ring. During the last portion of this division and dissection, purulent appearing secretions were noted within the surgical wound and after suctioning a small pinpoint tear in the tracheal wall between the first and second tracheal ring was identified and decision was made to proceed with a high tracheostomy due to this finding as well as difficulty with exposure due to the patient's anatomy which precluded visualization of the third tracheal ring. The patient was preoxygenated with 100% FiO2 via bag mask to hold his oxygen saturation in the mid 80s throughout the remaining portion of the procedure. After conferring with the anesthesia team a tenotomy scissor was used to make an incision in the mucosa between the second and third tracheal ring and a cricoid hook was used to elevate the superior aspect of the trachea allowing visualization of the in situ endotracheal tube. The balloon was deflated and the tube was slowly retracted. Additional thick muddy appearing secretions were removed from the trachea and the tracheal wall was noted to have significantly inflamed appearance. The 8 regular Shiley tracheostomy tube was passed without difficulty and the circuit was connected and the balloon was inflated. The patient was administered 100% FiO2 with bag ventilation to improve his oxygenation. Due to gurgling sounds, a flexible suction catheter was passed through the tracheostomy tube and thick purulent muddy appearing secretions were suctioned. A suction trap was then obtained and a portion of the secretions were collected for microbiology. After suctioning copious secretions through the tracheostomy tube, his oxygen and saturation improved. Similar secretions were suctioned from the mouth and the anesthesiologist replaced the orogastric tube with a nasogastric tube and the patient was returned to care of anesthesia for transportation back to the ICU. Complications: None Drain(s): Nasogastric Implants: 8 Shiley Fluids & blood products: See anesthesia record Transferred to: ICU Condition: Serious
--- NOTE | 2024-11-20 09:23 | PN ---
Date of Progress Note: 11/20/2024 Yesterday, I was contacted by the hospitalist team and renal team that the patient requires dialysis, and I was asked to put a tunneled dialysis catheter. The patient's clinical condition was reviewed. He is still intubated and Dr. Adler will place a tracheostomy tube at the same time. The patient is off pressors and his FiO2 is down to 40%. His renal function is not improving and he requires di alysis. Therefore, informed consent was obtained from the daughter. She understood risks, benefits, and alternatives and agreed to procedure. /MODL Voice ID: [id number] Report ID: [id number]
--- NOTE | 2024-11-20 10:13 | RAD REPORT ---
EXAMINATION: ONE VIEW CHEST XR CLINICAL INDICATION: Status post tunneled dialysis catheter placement TECHNIQUE: Frontal chest projection is submitted. Examination is limited by patient positioning and t echnique. COMPARISON: 11/20/2024 FINDINGS: Right-sided venous catheter is in place with tip in SVC. No pneumothorax. Tip of the endotracheal tub e is above the alfred the level of the clavicular heads. [id number] bilateral pulmonary opacities, unchanged. The heart is moderately enlarged. Enteric tube descends into the stomach. IMPRESSION: Right-sided venous catheters tip in the SVC. No postprocedural pneumothorax.
--- NOTE | 2024-11-20 10:13 | RAD REPORT ---
EXAM: XR of the abdomen HISTORY: Abdominal pain ngt COMPARISON: None FINDINGS: Enteric tube is likely in the stomach.
[2024-11-20] MEDS: KCL 20 MEQ/100 mL IVPB 20 MEQ/100 ML BAG IV SCH (10:16)
--- NOTE | 2024-11-20 12:21 | P.PN ---
Subjective Date of Service: 11/20/24 Chief Complaint: Respiratory failure with hypotension Status post tracheostomy today. Status post dialysis catheter placement today. Patient has been off vasopressors since yesterday. Physical Examination - Vital Signs Temperature: 96.9 F Blood Pressure: 115/102 Pulse: 119 Respirations: 20 Pulse Ox (%): 90 - Studies Medications List Reviewed: Yes Assessment And Plan - Plan Physical Exam General: More responsive, NAD HEENT: ET Tube, OG tube, bleeding noted in the ET tube. Rattling sound Respiratory: Bilateral upper airway transmitted sounds. Diminished breath sounds bilaterally Cardiovascular: Normal pulses, irregularly irregular, Normal S1 S2 Gastrointestinal: Normal bowel sounds, obese abdomen, fecal collecting system in place. Musculoskeletal: Bilateral lower extremity lymphedema with skin lichenification and xerosis. Bilateral upper extremity edema. Neurology: Open eyes spontaneously, able to flex her fingers of both hands. Problem List: Acute Hypercarbic Respiratory failure secondary to Pulmonary edema Respiratory acidosis Hyponatremia secondary to volume overload Nausea/vomiting Acute on chronic diastolic heart failure Cor pulmonale Obesity hypoventilation Constipation Atrial fibrillation, chronic IDDM2 Hypertension Chronic Lymphedema with bilateral lower extremity lichenification. verrucous cobblestone papules Morbid obesity. Diarrhea GI bleed vs pulmonary hemorrhage Cardiogenic shock Acute Hypercarbic Respiratory failure secondary to Pulmonary edema Respiratory acidosis Hyponatremia secondary to volume overload Nausea/vomiting multiple unsuccessful attempt to wean off vent. Pulm recommended tracheostomy. Status post tracheostomy today by Dr. Adler. He has multiorgan failure including worsening kidney function, respiratory failure, cardiogenic shock with hypotension after PEA. Patient made DNR by his daughter Repeat Blood cx (11/10): NGTD; Sputum: normal respiratory farhat Patient is on antibiotics CT abdomen (11/12):Patchy bilateral dependent airspace opacities, with small bilateral layering pleural effusions. Pericystic fat stranding, raising concern for infectious/inflammatory cystitis. High gastric residuals suggest some degree of gastroparesis. Continue Protonix Patient is getting IV Lasix drip intermittently. Suspected GI bleed versus pulmonary hemorrhage. Repeat chest x-ray 11/19 showed no significant change. Was on heparin drip for suspected pulmonary embolism which discontinued. Overall very poor prognosis. PEA/Asystole Cardiogenic shock Likely secondary to respiratory failure Blood pressure has improved, patient is off pressors 11/19. EKG shows no ischemic changes. Pulmonary embolism was ruled out. Patient is too unstable and have elevated creatinine so high risk with transportation to CT scan and also high risk for ADIN given reduced creatinine clearance. Serum creatinine level plateaued at 2.38. Patient is on IV fluid maintenance given that he is not tolerating tube feeding with high gastric residuals. Intermittent albumin infusion as needed. Poor prognosis. Acute on chronic diastolic heart failure Cor pulmonale Obesity hypoventilation Cardiology is following repeat CXR (11/07): bilateral pulmonary opacities similar to slightly progressive Repeat CXR (11/10): unchanged Echo (11/01): 55-60%EF, elevated filling pressure, trace TR IV lasix dcd 11/12 and placed on diamox. Diamox switched back to IV Lasix drip 11/16. Diuretics discontinued on 11/17, resumed 11/19. Status post IV NS boluses for hypotension. IV albumin as needed Monitor electrolytes and correct as needed. Constipation Patient now has diarrhea with fecal management system in place. Atrial fibrillation, chronic Likely chronic Cardiology is following Coreg discontinued due to hypotension. On heparin drip. Monitor. IDDM2 Accucheck with SSI Continue current dose Semglee. adjust tube feeds. Low tube feeding rate and monitor gastric residual volume. Hypertension Blood pressure improved. Patient is off pressors. Coreg is on hold. Chronic Lymphedema with bilateral lower extremity lichenification. Verrucous cobblestone papules Morbid obesity. Suspected Pseudomonas skin infection Continue local wound care with acetic acid solution and lidex cream Patient is on cefepime which should cover Pseudomonas Keep legs wrapped. Dr. Arnold, general surgeon evaluated patient. f/u outpatient at Lymphedema clinic. Hypernatremia ADIN Blood pressure improved, patient is off pressors. Hypernatremia resolved. Serum creatinine plateaued, associated severely elevated BUN. Hemodialysis catheter placed by Dr. Arnold. Nephrology Dr. Thompson recommended initiating dialysis. Monitor BMP. VTE: Anticoagulation contraindicated given bleeding from the mouth. Code: Full Continue ICU level of care Disposition: LTAC once clinically stable for transfer.
[2024-11-20] MEDS: MANNITOL 25% 12.5 GM/50 ML VIAL IV PRN (12:45)
[2024-11-20 15:02] LABS: Hepatitis B Core IgM Nonreactive (Nonreactive); Hepatitis B surface AG Interp. Nonreactive (Nonreactive)
[2024-11-20 15:03] LABS: HBsAG Nonreactive Report Report; Hepatitis B Surface Ab - Quant < 3.10 mIU/mL (<8.0)
[2024-11-20] MEDS: NOREPINEPHRINE BITARTRATE/D5W 4 MG/250 ML BAG IV SCH (15:30)
[2024-11-20] MEDS: VANCOMYCIN 2 GM in NA CHLORIDE 0.9% 500 ML IVPB SCH (17:00)
--- NOTE | 2024-11-20 18:31 | P.PN ---
Date of Service: 11/20/24 POV tracheotomy. Difficulty with positioning and oxygenation reports about 1-2 hours after tracheotomy but improved partially with securing of tube and vent attachment to neck with a tie. Patient underwent HD earlier today with resulting hypotension and was placed back on levophed. 8.0 Shiley with minimal bleeding. Currently on 50% FiO2 with sats in high 90s on vent with tidal volumes varying between 400-750ml. DiffDx includes: trach malpositioning due to body habitus/tube shape & length, tracheomalcia resulting in excessive cuff leak, severity of underlying bronchopulmonary disease/infection with respiratory issues unrelated to trach length/position. Patient also had pre-existing issues with code following turning/repositioning while ETT was still in place. The patient is now hemodynamically less stable after HD today. Finally, due to intraoperative findings of large anterior jugular veins, there is risk of vascular tear/injury with blind exchange of tracheotomy tube at the bedside. After discussion with ICU nursing team and Defensive Driving Instructor, I do not recommend return to OR tonight for tracheostomy exchange. If the patient's trach tube is progressively problematic, endotracheal intubation from above with removal of the trach tube would be feasible and acceptable. If the patient stablizes, we can consider bedside flexible tracheoscopy for evaluation of tube position prior to any OR. Bedside trach exchange would be more acceptable POD 4-5 as more mature tract forms. Will continue to follow.
--- NOTE | 2024-11-21 03:34 | PN ---
Date of Progress Note: 11/20/2024 Chief Complaint: Acute kidney injury, respiratory failure, pulmonary edema, anasarca. Subjective: The patient remains intubated. He is critical ill. He has borderline hypotension and i s on Levophed drip for blood pressure support. He will undergo tunneled dialysis catheter placement tomorrow for the hemodialysis. He has severe hyperazotemia due to acute kidney injury, cardiorenal s yndrome. The patient is scheduled to have dialysis today and will require daily dialysis treatment w ith ultrafiltration. Review of Systems: Unobtainable. Physical Examination: Lungs: Diminished. Heart: S1, S2. Extremities: Anasarca Abdomen: Bowel sounds present. Impression And Plan: 1.Acute kidney injury in setting of congestive heart failure, septic shock, complicated by respirato ry failure. The patient has chronic respiratory failure, was unable to be weaned off. He remains on ventilator. The patient has hypotension and Levophed was used for blood pressure support. 2.Renal function, declining. The patient was started on Lasix drip for volume control, although the re is severe hyperazotemia and the patient was initiated on hemodialysis. 3.Hypotension, possible shock. Continue antibiotics. Echocardiogram was done to evaluate for systo lic dysfunction. 4.The patient has pulmonary hypertension. There is a risk of thromboembolic condition. Further rec ommendation from Cardiology and Primary team. 5.Sepsis. Antibiotics of broad spectrum with meropenem and vancomycin have been used along with antifungal treatment with Diflucan. EB/MODL Voice ID: [id number] Report ID: [id number]
[2024-11-21 05:12] LABS: Absolute Eosinophils 0.3 K/uL (0-0.5); Absolute Lymphocytes (CBC) 1.3 K/uL (0.7-4.9); Absolute Monocytes 0.8 K/uL (0.1-1.3); Absolute Neutrophil 14.7 K/uL (1.8-8.0); Basophils % 0.2 % (0-1.3); Eosinophils % 1.5 % (0-4.4); Hematocrit 32.3 % (39.6-49.0); Lymphocytes % 7.7 % (15.3-44.8); MCH 25.1 pg (27.0-35.0); MCHC 30.8 g/dL (32.0-36.0); MCV 81.6 fL (80-100); MPV 9.7 fL (7.6-11.3); Monocytes % 4.7 % (3.3-12.3); Nucleated RBC Absolute Count 0.1 (0-0); Nucleated Red Blood Cells % 0.3 % (0-0); Platelets 373 thou/uL (152-406); RBC Red Blood Cell Count 3.97 M/uL (4.33-5.43); Red Cell Distribution Width 17.9 % (12.1-15.2)
[2024-11-21 05:18] LABS: Neutrophils % 85.9 % (41.7-73.7)
[2024-11-21 05:30] LABS: Phosphorus 4.5 mg/dL (2.5-4.9)
[2024-11-21 05:32] LABS: Anion Gap 4.5 mEq/L (5.0-15.0); Potassium 3.5 mEq/L (3.5-5.1)
[2024-11-21] MEDS: VANCOMYCIN 2 GM in NA CHLORIDE 0.9% 500 ML IVPB SCH (08:51)
--- NOTE | 2024-11-21 11:58 | P.PN ---
Date of Service: 11/21/24 Subjective: shakes/nods head yes/no trach in place - desaturates with movement no acute events overnight off pressors since 5am today ROS: unable to fully obtain d/t trach/mentation Physical Exam: GEN: nods/shakes head CV: Irregularly Irregular rate and rhythm. chronic lymphedema Pulm: on trach, diminished bilaterally, upper airway secretions ABD: soft Integumentary: bilateral lower extremity lymphedema with skin lichenification and xerosis ET Tube, OG tube jones in place Problem List: Acute Hypercarbic Respiratory failure secondary to Pulmonary edema Respiratory acidosis Hyponatremia secondary to volume overload Nausea/vomiting Acute on chronic diastolic heart failure Cor pulmonale Obesity hypoventilation Chronic Lymphedema with bilateral lower extremity lichenification. Verrucous cobblestone papules Morbid obesity. Staph epidermidis bacteremia Hypernatremia ADIN Atrial fibrillation, chronic IDDM2 Hypertension Acute Hypercarbic Respiratory failure secondary to Pulmonary edema Respiratory acidosis Hyponatremia secondary to volume overload Nausea/vomiting He has multiorgan failure including worsening kidney function, respiratory failure, cardiogenic shock with hypotension after PEA. Patient made DNR by his daughter multiple unsuccessful attempt to wean off vent. Pulm recommended tracheostomy. s/p tracheostomy (11/20) by Dr. Adler, ENT Possible tracheostomy exchange; per ENT. Repeat Blood cx (11/17): Staph Epidermidis continue empiric vanc / merrem (11/20-) CT abdomen (11/12):Patchy bilateral dependent airspace opacities, with small bilateral layering pleural effusions. Pericystic fat stranding, raising concern for infectious/inflammatory cystitis. High gastric residuals suggest some degree of gastroparesis. Patient is getting IV Lasix drip intermittently. Repeat chest x-ray 11/19 showed no significant change. Was on heparin drip for suspected pulmonary embolism which discontinued (11/15- 11/18) Patient placed back on levophed after Dialysis yesterday d/t hypotension. Overall very poor prognosis. possible LTACH once stable Acute on chronic diastolic heart failure Cor pulmonale Obesity hypoventilation Cardiology is following repeat CXR (11/07): bilateral pulmonary opacities similar to slightly progressive Repeat CXR (11/10): unchanged Echo (11/01): 55-60%EF, elevated filling pressure, trace TR Diamox switched back to IV Lasix drip 11/16. -> lasix drip dc'd 11/20 Monitor electrolytes and correct as needed. IV albumin as needed Monitor electrolytes and correct as needed. Chronic Lymphedema with bilateral lower extremity lichenification. Verrucous cobblestone papules Morbid obesity. Staph epidermidis bacteremia Continue local wound care with acetic acid solution and lidex cream continue empiric vanc / merrem (11/20-) Keep legs wrapped. Dr. Arnold, general surgeon consulted f/u outpatient at Lymphedema clinic Hypernatremia ADIN Blood pressure improved, patient is off pressors. Hypernatremia resolved. Serum creatinine plateaued, associated severely elevated BUN. Nephrology recommended initiating dialysis. Dr. Arnold, general surgeon consulted for HD cath placement. s/p HD cath (11/20) Dialysis per nephrology Atrial fibrillation, chronic Likely chronic Cardiology is following Heart rate is currently controlled. s/p heparin drip (11/15-11/18) Coreg on hold d/t hypotension IDDM2 Accucheck with SSI semglee increased to 30u BID 11/08 Hypertension BP stable. Coreg on hold d/t hypotension VTE: Lovenox Code: Full Continue ICU level of care Time Spent Managing Pts Care (In Minutes): 55
[2024-11-21 16:14] LABS: Arterial Blood Carboxyhemoglob 0.6 % (0-1.5); Blood Gas Oxyhemoglobin 90.3 % (94-97); Blood Gas THB 16.7 g/dl (12-18); Blood O2 Saturation 92.4 % (92-98.5)
--- NOTE | 2024-11-21 17:05 | P.PN ---
Date of Service: 11/21/24 POD 1 tracheotomy. Continued difficulty with positioning and oxygenation with variable tidal volumes overnight and during the day with significant cuff leak. Pulm requests change to proximal XLT trach to help facilitate ventilation. Tidal volumes decreased with narcotic medications despite vent settings 8.0 Shiley with no visible bleeding. Currently on 50% FiO2 with sats in 90s. Currently receiving HD until about 1915 tonight. Spoke with daughter, Cielo who is accepting of trach change in OR. verbal consent obtained. Plan trach exchange in OR for optimization of lights, assistance and retractors to reduce risk of inability to replace trach and to reduce risk of inadvertent venous injury. Will post for 2029 tonight.
[2024-11-21] MEDS: NOREPINEPHRINE BITARTRATE/D5W 4 MG/250 ML BAG IV SCH (17:52)
--- NOTE | 2024-11-21 18:17 | PN ---
Date of Progress Note: 11/21/2024 Subjective: The patient was admitted to the hospital, had acute kidney injury secondary to cardioren al. The patient was initiated on dialysis. The patient tolerated the dialysis. Physical Examination: Vital Signs: When I saw the patient, the patient is still on vent, blood pressure 98/72, pulse of 13 2. Chest: Crackles, bilateral. Heart: S1, S2. Systolic murmur. Abdomen: Soft, nontender. Extremities: +1 edema. Neuro: The patient is on vent on 70% FiO2. Laboratory Data: Hemoglobin 10. Sodium 149, potassium 3.5, bicarb 41, BUN 91, creatinine 2, GFR of 36, calcium 8.5, magnesium 3, phosphorus 4.5. Chest x-ray, cardiomegaly with congestion. The patien t had urine output of 1150. Current Medications: The patient is on include: 1.Meropenem. 2.Fluconazole. 3.Vancomycin. 4.Levophed. 5.Heparin. 6.Tylenol. 7.Zofran. 8.D5 with half normal. 9.Fentanyl. Assessment And Plan: 1.Acute kidney injury secondary to contrast-induced nephropathy, septic shock, and poor perfusion AT N with cardiorenal, over volume, nonoliguric. I am going to do another session of dialysis, then hop efully I can switch the patient to TTS and we will follow up the patient. 2.Hypertension, currently hypotension. We will utilize blood pressure for more ultrafiltration. We will continue to monitor. 3.Congestive heart failure with exacerbation. We will optimize fluid status for the patient. 4.Shock, cardiogenic/septic shock complicated with multiorgan failure including renal failure second nati to ATN. Continue supportive care. Continue dialysis. Continue antibiotic, dose appropriate. 5.Respiratory failure. Continue vent support. Follow up with Pulmonary. MA/MODL Voice ID: [id number] Report ID: [id number]
--- NOTE | 2024-11-21 22:25 | P.OP ---
Public Health Administrator: NONE,NONE Preoperative diagnosis: Respiratory failure Postoperative diagnosis: Same Primary procedure: Tracheostomy tube exchange Secondary procedure: Bronchoscopy via existing tracheostomy Anesthesia: General Estimated blood loss: None Specimen: None Findings: Tracheal collapse with distal extended tracheostomy tube Operative Technique: Patient was brought to the operating room and placed in a supine position. Once all equipment and anesthesia team was prepared, the trach ties and trach sutures were cut, the balloon of the existing size 8 Shiley tracheostomy tube was deflated and the trach tube was removed. The tracheostoma was fresh consistent with interval since tracheostomy of approximately 36 hours and the Shiley 8 distal extended tracheostomy tube was placed through the stoma under direct visualization into the airway and connected to the anesthesia circuit. Initially the patient was oxygenating well but we could not obtain a appropriate CO2 waveform and after suctioning, the patient continued to have no meaningful CO2 waveform and began desaturating. Differential diagnosis included improper placement of the tube into a false passage or malpositioning of the tube within the airway in such a way to create obstruction at the distal end of the tube. Therefore, the decision was made to replace the tube immediately with the original size 8 Shiley with retraction of the soft tissues using [employer] retractors in order to visualize to the degree feasible. Overall the surgical wound was challenging to discern in part due to the severity of the tracheitis. Upon connection of the original size 8 Shiley, a significantly improved waveform on CO2 return was noted and the patient's oxygen saturations slowly improved with bagging. Based on these findings decision was made to perform flexible bronchoscopy through the tracheostomy tube in order to ensure optimal placement and size of the tube. Once the equipment was available, a connector which allowed concurrent ventilation during bronchoscopy was connected to the tracheostomy tube and the flexible bronchoscope was passed through the connector. The distal tracheal wall was mildly inflamed. The distal tip of the tube appeared to be well-positioned in the center of the airway with no discernible obstruction. The alfred and primary bronchi were visualized. Both the right and left primary bronchi were filled with purulent murky fluid which was suctioned. The bronchoscope was withdrawn and the patient was oxygenated and ventilated. In coordination with the anesthesia team, we elected to reattempt positioning of the extended length Shiley tracheostomy tube. Using [employer] retractors for the soft tissues, the 8 Shiley tracheostomy tube balloon was deflated and the tube was removed. The distal extended length size 8 Shiley was placed under direct visualization and the patient was connected to the anesthesia circuit. Immediate bronchoscopy was performed through the ventilating connector. The tip of the tracheostomy tube was at approximately the alfred and was obstructed by collapse of tissue in this portion of the airway. Overall this view and obstruction was consistent with initial decreased ventilation and failure to obtain CO2 waveform during ventilation noted earlier in the procedure. The decision was made to remove the distal extended length Shiley and replace with the original size 8 Shiley. Once the tracheostomy tube was secured additional bronchoscopy was performed and again the tip of the tube was noted in the midportion of the airway with no visible obstruction. The primary bronchi were suctioned of purulent appearing secretions. The umbilical tie was secured around the neck and the patient was returned to care of anesthesia for transportation to the ICU. Based on surgical findings, the size 8 regular length Shiley tracheostomy tube appears to be the best option as the distal extended length is too long and is not feasibly appropriately positioned within the airway. Complications: None Drain(s): Nasogastric Implants: 8 Shiley tracheostomy tube Fluids & blood products: See anesthesia record Transferred to: ICU Condition: Critical
--- NOTE | 2024-11-21 23:26 | P.PN ---
Date of Service: 11/21/24 Called to ICU for difficulty with ventilation immediately upon return to ICU from OR. Easy bag ventilation through trach but unable to maintain ventilator volumes. No crepitus or bleeding from trach site. Copious murky fluid suctioned through trach. CXR with no ptx; L effusion. Respiratory failure. Worked with Akiko and RT for >2 hours with intermittant bagging and various vent settings. Multiple attempts to contact daughter without response. Suspect tracheomalcia contributing to severe cuff leak. Increased cuff presure to 50 on manometer without improvement. Noted to have volume loss of ventilation through mouth but maintaining oxygenation.
[2024-11-21] MEDS: CISATRACURIUM INJECTION 2 MG/ML (10 ML Vial) IV ONE (23:27)
--- NOTE | 2024-11-22 00:02 | P.PN ---
Date of Service: 11/21/24 Patient is s/p trach change unable to ventilate the patient tried all forms of ventilatory modes not successful he has considerable leak around the trach area with exhalation through his mouth. Chest x-ray is clear left the patient on her percent FiO2 unable to contact the daughter His chest is clear patient also was tried on small dose of paralytic agent with no no change patient is very easy to do a bag mask ventilation no resistance I doubt there is a problem with his compliance of his lung apparently he also has some tracheomalacia prognosis is very poor plan to continue with the present ventilation the last ventilator is constantly alarming due to loss of tidal volume through his mouth
[2024-11-22 00:52] VITALS: O2SAT 100
[2024-11-22 05:24] VITALS: BMI 44.9
[2024-11-22 06:13] LABS: Absolute Eosinophils 0.4 K/uL (0-0.5); Absolute Lymphocytes (CBC) 1.2 K/uL (0.7-4.9); Absolute Monocytes 0.6 K/uL (0.1-1.3); Absolute Neutrophil 11.7 K/uL (1.8-8.0); Basophils % 0.3 % (0-1.3); Eosinophils % 2.9 % (0-4.4); Hemoglobin 8.9 g/dL (13.6-17.9); Lymphocytes % 8.9 % (15.3-44.8); MCH 25.5 pg (27.0-35.0); MCHC 29.8 g/dL (32.0-36.0); MCV 85.6 fL (80-100); MPV 9.6 fL (7.6-11.3); Monocytes % 4.1 % (3.3-12.3); Neutrophils % 83.8 % (41.7-73.7); Platelets 270 thou/uL (152-406); RBC Red Blood Cell Count 3.51 M/uL (4.33-5.43); Red Cell Distribution Width 19.3 % (12.1-15.2)
--- NOTE | 2024-11-22 06:56 | RAD REPORT ---
EXAM: Chest Single View HISTORY: Trach Placement COMPARISON: 11/20/2024 FINDINGS: LUNGS/PLEURA: Small left pleural effusion. There is likely underlying atelectasis. Pulmonary edema wh ich may be marginally improved. Motion artifact. MEDIASTINUM: The mediastinal silhouette is within normal limits. CARDIAC: Stable size and configuration. UPPER ABDOMEN: No significant abnormality. BONES: No acute abnormality. LINES/TUBES/OTHER: Right IJ approach dialysis catheter with tip overlying the SVC. Tracheostomy with tip at the lower margin of the clavicular heads in satisfactory position. NG tube in the stomach. IMPRESSION: 1. Small left pleural effusion with possibly underlying atelectasis and/or pneumonia at the left lung base. Pulmonary edema appears marginally improved. 2. Support apparatus including the tracheostomy tube, dialysis catheter, and enteric tube in satisfac tory position.
[2024-11-22 08:09] LABS: Albumin 1.4 g/dL (3.4-5.0); Albumin/Globulin Ratio 0.2 (1.1-1.8); Bilirubin Total 0.9 mg/dL (0.2-1.0); Globulin 5.9 g/dL (2.3-3.5); Magnesium 2.7 mg/dL (1.6-2.4); Phosphorus 5.4 mg/dL (2.5-4.9); Protein, Total 7.3 g/dL (6.4-8.2)
[2024-11-22] MEDS ORDERED: SODIUM CHLORIDE 0.9% 10ML INJ IV PRN (08:21)
--- NOTE | 2024-11-22 08:28 | P.PN ---
Date of Service: 11/22/24 Subjective: more awake/alert. shakes head yes/no occasionally able to squeeze hands attempted tracheostomy exchange yesterday. Patient with difficulty with ventilation immediately upon return from OR. eventually improved ROS: unable to fully obtain d/t trach/mentation Physical Exam: GEN: nods/shakes head CV: Irregularly Irregular rate and rhythm. chronic lymphedema Pulm: on trach, diminished bilaterally, upper airway secretions ABD: soft Integumentary: bilateral lower extremity lymphedema with dressing in place ET Tube, OG tube jones in place Problem List: Acute Hypercarbic Respiratory failure secondary to Pulmonary edema Respiratory acidosis Hyponatremia secondary to volume overload Nausea/vomiting Acute on chronic diastolic heart failure Cor pulmonale Obesity hypoventilation Chronic Lymphedema with bilateral lower extremity lichenification. Verrucous cobblestone papules Morbid obesity. Staph epidermidis bacteremia Hypernatremia ADIN Atrial fibrillation, chronic IDDM2 Hypertension Acute Hypercarbic Respiratory failure secondary to Pulmonary edema Respiratory acidosis Hyponatremia secondary to volume overload Nausea/vomiting He has multiorgan failure including worsening kidney function, respiratory failure, cardiogenic shock with hypotension after PEA. Patient made DNR by his daughter multiple unsuccessful attempt to wean off vent. Pulm recommended tracheostomy. s/p tracheostomy (11/20) by Dr. Adler, ENT Attempted tracheostomy exchange yesterday 11/21. ICU called for difficulty ventilation immediately upon return from OR. Unable to maintain ventilator volumes given considerable leak around trach area. CXR (11/21): Small left pleural effusion with possibly underlying atelectasis/pneumonia at the left lung base. Pulmonary edema appears marginally improved. Repeat Blood cx (11/17): Staph Epidermidis continue empiric vanc / merrem (11/20-) CT abdomen (11/12):Patchy bilateral dependent airspace opacities, with small bilateral layering pleural effusions. Pericystic fat stranding, raising concern for infectious/inflammatory cystitis. High gastric residuals suggest some degree of gastroparesis. Patient is getting IV Lasix intermittently. Repeat chest x-ray 11/19 showed no significant change. Was on heparin drip for suspected pulmonary embolism which discontinued (11/15- 11/18) Patient placed back on levophed after Dialysis yesterday d/t hypotension. Overall very poor prognosis. possible LTACH once stable Acute on chronic diastolic heart failure Cor pulmonale Obesity hypoventilation Cardiology is following repeat CXR (11/07): bilateral pulmonary opacities similar to slightly progressive Repeat CXR (11/10): unchanged Echo (11/01): 55-60%EF, elevated filling pressure, trace TR Diamox switched back to IV Lasix drip 11/16. -> lasix drip dc'd 11/20 Monitor electrolytes and correct as needed. IV albumin as needed Monitor electrolytes and correct as needed. Chronic Lymphedema with bilateral lower extremity lichenification. Verrucous cobblestone papules Morbid obesity. Staph epidermidis bacteremia Continue local wound care with acetic acid solution and lidex cream continue empiric vanc / merrem (11/20-) Keep legs wrapped. Dr. Arnold, general surgeon consulted f/u outpatient at Lymphedema clinic Hypernatremia ADIN Blood pressure improved, patient is off pressors. Hypernatremia resolved. Serum creatinine plateaued, uremia Nephrology recommended initiating dialysis. Dr. Arnold, general surgeon consulted for HD cath placement. s/p HD cath (11/20) Dialysis per nephrology Atrial fibrillation, chronic Likely chronic Cardiology is following Heart rate is currently controlled. s/p heparin drip (11/15-11/18) Coreg on hold d/t hypotension IDDM2 Accucheck with SSI semglee increased to 30u BID 11/08 Hypertension BP stable. Coreg on hold d/t hypotension VTE: Lovenox Code: Full Continue ICU level of care LTACH once stable Time Spent Managing Pts Care (In Minutes): 55
[2024-11-22] MEDS: PANTOPRAZOLE 40 MG INJ IVP SCH (08:36)
[2024-11-22 09:02] LABS: Arterial Blood Carboxyhemoglob 0.7 % (0-1.5); Blood Gas Oxyhemoglobin 96.6 % (94-97)
[2024-11-22 09:03] LABS: Blood Gas THB 9.5 g/dl (12-18)
[2024-11-22 11:41] VITALS: TEMP 97.2
[2024-11-22] MEDS ORDERED: EPOETIN ALFA 10,000 UNIT/ML VIAL IV SCH (11:45)
[2024-11-22] MEDS ORDERED: VANCOMYCIN 2 GM in NA CHLORIDE 0.9% 500 ML IVPB SCH (17:00)
--- NOTE | 2024-11-22 17:09 | P.DS ---
Admission Date: 11/01/24 Discharge Date: 11/22/24 Disposition: DC HOME/HOME HEALTH CARE Discharge Condition: FAIR Reason for Admission: Respiratory failure with hypotension Consultations: Cardiology - Dr. Centeno / Dr. Mcclendon General Surgery - Dr. Arnold Pulmonology - Dr. Wharton ENT - Dr. Adler Nephrology - Dr. Rashid, Dr. [facility] Brief History of Present Illness: 64yo M, PMH: HTN, Diabetes mellitus, and verrucous cobblestone papules Patient presents to the ED with chief complaint of SOB. On evaluation, he is on 4 LNC, uncomfortable with positioning, malodorous bilateral lower extremity verrucous cobblestone papules present. He reports seeing Dr. Pollard but lost his insurance and is unable to see a doctor at this time. He reports wrapping his legs on his own and has experienced an increased swelling to BLE.Laboratory evaluation significant for left shift neutrophil 87, H&H 12.9/40.7, sodium 128, potassium 3.4, serum glucose 230, BNP 1625.Initial vitals BP 173 / 109; Pulse 90; Resp 24; Temp 97.4; Pulse Ox 100% on 4 lpm NC Chest xray reports "Moderate bilateral pulmonary opacities are present, slightly greater on the right. This would indicate pulmonary edema or pneumonia. The heart is moderately enlarged in size. No displaced fractures identified." Heath will be admitted to hospitalist service for further evaluation and treatment of bilateral pulmonary edema. Hospital Course: Problem List: Acute Hypercarbic Respiratory failure secondary to Pulmonary edema Respiratory acidosis Hyponatremia secondary to volume overload Nausea/vomiting Acute on chronic diastolic heart failure Cor pulmonale Obesity hypoventilation Chronic Lymphedema with bilateral lower extremity lichenification. Verrucous cobblestone papules Morbid obesity. Staph epidermidis bacteremia Hypernatremia ADIN Atrial fibrillation, chronic IDDM2 Hypertension Acute Hypercarbic Respiratory failure secondary to Pulmonary edema Respiratory acidosis Hyponatremia secondary to volume overload Nausea/vomiting Patient initially presented with worsening shortness of breath, lower extremity edema. Patient intubated and placed on mechanical ventilation on 11/02. He has multiorgan failure including worsening kidney function, respiratory failure, cardiogenic shock with hypotension after PEA. Patient made DNR by his daughter After multiple unsuccessful attempt to wean off vent, Pulm recommended tracheostomy eval Patient underwent tracheostomy on 11/[address] Adler, ENT Attempted tracheostomy exchange yesterday 11/21 however upon immediately return from OR, ICU called for difficulty with ventilation. Patient unable to maintain ventilator volumes given considerable leak around trach area. ENT/Pulm attempted multiple different settings but was unsuccessful, eventually replaced trach with similar 8 shiley with better results. repeat Chest xray noted Small left pleural effusion with possibly underlying atelectasis/pneumonia at the left lung base. Pulmonary edema appears marginally improved. Patient is getting IV Lasix intermittently as BP/renal function allows Patient has been on multiple antibiotics throughout hospitalization to cover pneumonia/UTI/skin infections. Blood cultures grew Staph Epidermidis (11/17) Patient was restarted on IV merrem/vanc (11/20-) given bacteremia Patient was also on heparin drip for suspected pulmonary embolism (11/15-11/18) briefly, but stopped due to dark OG output that resolved. CT abdomen (11/12):Patchy bilateral dependent airspace opacities, with small bilateral layering pleural effusions. Pericystic fat stranding, raising concern for infectious/inflammatory cystitis. High gastric residuals suggest some degree of gastroparesis. Acute on chronic diastolic heart failure Cor pulmonale Obesity hypoventilation Patient has been getting intermittent IV lasix and IV albumin, as BP and renal function allow. Chest xrays demonstrated pulmonary edema. Echo (11/01): 55-60% EF, elevated filling pressure, trace TR Chronic Lymphedema with bilateral lower extremity lichenification. Verrucous cobblestone papules Morbid obesity. Staph epidermidis bacteremia Dr. Arnold, general surgeon consulted to eval lower extremity wounds. Dr. Arnold recommended local wound care with acetic acid solution and lidex cream Patient has been on multiple antibiotics throughout hospitalization to cover pneumonia/UTI/skin infections. Advised patient to follow up at the lymphedema clinic for further management. Hypernatremia ADIN Patient developed ADIN during this hospitalization. Serum creatinine plateaued, elevated BUN. Dr. Arnold, general surgeon consulted and placed HD catheter on 11/20 and dialysis initiated with improvement Atrial fibrillation, chronic Patient was noted to be in and out of a-fib throughout hospitalization. Heart rate remained rate controlled. Coreg has been on hold d/t Hypotension / pressors which he has required intermittently this week, last needed for HD IDDM2 semglee was increased to 30u BID 11/08 while on tube feeds Physical Exam: GEN: nods/shakes head CV: Irregularly Irregular rate and rhythm. chronic lymphedema Pulm: on trach, diminished bilaterally, upper airway secretions ABD: soft Integumentary: bilateral lower extremity lymphedema with dressing in place ET Tube, OG tube jones in place Vital Signs/Physical Exam: Temp Pulse Resp BP Pulse Ox 97.2 F 128 H 28 H 122/82 100 11/22/24 11:00 11/22/24 15:42 11/22/24 14:00 11/22/24 14:00 11/22/24 15:42 Laboratory Data at Discharge: WBC 14.00 thou/uL (4.3-10.9) H 11/22/24 05:10 Hgb 8.9 g/dL (13.6-17.9) L D 11/22/24 05:10 Hct 30.0 % (39.6-49.0) L 11/22/24 05:10 Plt Count 270 thou/uL (152-406) D 11/22/24 05:10 PT 15.9 SECONDS (9.4-12.5) H 11/18/24 14:00 INR 1.52 11/18/24 14:00 APTT 49.9 SECONDS (24.3-36.9) H 11/18/24 14:00 Sodium 145 mEq/L (136-145) 11/22/24 07:12 Potassium 4.0 mEq/L (3.5-5.1) D 11/22/24 07:12 BUN 66 mg/dL (7-18) H 11/22/24 07:12 Creatinine 1.90 mg/dL (0.70-1.30) H 11/22/24 07:12 Glucose 136 mg/dL (74-106) H 11/22/24 07:12 Phosphorus 5.4 mg/dL (2.5-4.9) H 11/22/24 07:12 Magnesium 2.7 mg/dL (1.6-2.4) H 11/22/24 07:12 Total Bilirubin 0.9 mg/dL (0.2-1.0) 11/22/24 07:12 AST 26 U/L (15-37) 11/22/24 07:12 ALT 18 U/L (16-61) 11/22/24 07:12 Alkaline Phosphatase 61 U/L (45-117) 11/22/24 07:12 Home Medications: Aspirin [Aspirin EC] 81 mg PO DAILY 11/02/24 Carvedilol [Coreg] 25 mg PO BID 11/02/24 Clonidine HCl [Catapres*] 1 tape PO DAILY 11/02/24 Glimepiride 1 tab PO BID 11/02/24 Insulin Aspart Prot/Insuln Asp [Insulin Aspart Pro [id number] Pn] See Protocol SQ BID 11/02/24 Olmesartan/Hydrochlorothiazide [Olmesartan-Hctz 20-12.5 mg Tab] 1 tab PO DAILY 11/02/24 Physician Discharge Instructions: Acute Hypercarbic Respiratory failure secondary to Pulmonary edema Respiratory acidosis Hyponatremia secondary to volume overload Nausea/vomiting Patient initially presented with worsening shortness of breath, lower extremity edema. Patient intubated and placed on mechanical ventilation on 11/02. He has multiorgan failure including worsening kidney function, respiratory failure, cardiogenic shock with hypotension after PEA. Patient made DNR by his daughter After multiple unsuccessful attempt to wean off vent, Pulm recommended tracheostomy eval Patient underwent tracheostomy on 11/[address] Adler, ENT Attempted tracheostomy exchange yesterday 11/21 however upon immediately return from OR, ICU called for difficulty with ventilation. Patient unable to maintain ventilator volumes given considerable leak around trach area. ENT/Pulm attempted multiple different settings but was unsuccessful, eventually replaced trach with similar 8 shiley with better results. repeat Chest xray noted Small left pleural effusion with possibly underlying atelectasis/pneumonia at the left lung base. Pulmonary edema appears marginally improved. Patient is getting IV Lasix intermittently as BP/renal function allows Patient has been on multiple antibiotics throughout hospitalization to cover pneumonia/UTI/skin infections. Blood cultures grew Staph Epidermidis (11/17) Patient was restarted on IV merrem/vanc (11/20-) given bacteremia Patient was also on heparin drip for suspected pulmonary embolism (11/15-11/18) briefly, but stopped due to dark OG output that resolved. CT abdomen (11/12):Patchy bilateral dependent airspace opacities, with small bilateral layering pleural effusions. Pericystic fat stranding, raising concern for infectious/inflammatory cystitis. High gastric residuals suggest some degree of gastroparesis. Acute on chronic diastolic heart failure Cor pulmonale Obesity hypoventilation Patient has been getting intermittent IV lasix and IV albumin, as BP and renal function allow. Chest xrays demonstrated pulmonary edema. Echo (11/01): 55-60% EF, elevated filling pressure, trace TR Chronic Lymphedema with bilateral lower extremity lichenification. Verrucous cobblestone papules Morbid obesity. Staph epidermidis bacteremia Dr. Arnold, general surgeon consulted to eval lower extremity wounds. Dr. Arnold recommended local wound care with acetic acid solution and lidex cream Patient has been on multiple antibiotics throughout hospitalization to cover pneumonia/UTI/skin infections. Advised patient to follow up at the lymphedema clinic for further management. Hypernatremia ADIN Patient developed ADIN during this hospitalization. Serum creatinine plateaued, elevated BUN. Dr. Arnold, general surgeon consulted and placed HD catheter on 11/20 and dialysis initiated with improvement Atrial fibrillation, chronic Patient was noted to be in and out of a-fib throughout hospitalization. Heart rate remained rate controlled. Coreg has been on hold d/t Hypotension / pressors which he has required intermittently this week, last needed for HD IDDM2 semglee was increased to 30u BID 11/08 while on tube feeds Followup: NONE,NONE [Primary Care Provider] - Time spent managing pt's care (in minutes): 55
--- NOTE | 2024-11-22 17:13 | PN ---
Date of Progress Note: 11/22/2024 Subjective: The patient was admitted with CHF exacerbation, acute kidney injury secondary to cardior enal. The patient was treated. The patient started to develop uremic symptoms, respiratory failure, intubated, trach. The patient was initiated on dialysis because of over-volume. The patient juan melendez non-oliguric. Yesterday had dialysis. Needs Levophed with dialysis. Physical Examination: Vital Signs: When I saw the patient, blood pressure 129/79, pulse of 117, afebrile, we managed to re move 1 L on dialysis, had urine output of 550. Chest: Faint rales bilateral. Heart: S1, S2, systolic murmur. Abdomen: Soft, nontender. Extremities: Plus edema. Neuro: Opens eyes spontaneously. Follows commands. Lab: WBC 14, hemoglobin 8.9. Sodium 145, potassium 4, bicarb 38, BUN 66, creatinine 1.9, GFR of 39. Calcium 8.3, phosphorus 5.4, magnesium 2.7. Albumin 1.4. Current Medications: Include: 1. IV fluid. 2. Fluconazole. 3. Meropenem. 4. Vancomycin. 5. Heparin. 6. Breathing treatment. 7. D5 half. Assessment And Plan: 1. Acute kidney injury, over-volume, dialysis dependent. I am going to continue the patient on dialy sis. We will schedule the patient on dialysis tomorrow and we will follow up. 2. Hypertension, currently blood pressure on the lower side, hold all blood pressure medications. 3. Congestive heart failure with exacerbation. Discontinue IV fluid. 4. Hypokalemia, resolved. 5. Over-volume secondary to congestive heart failure, currently normal volume. Switch dialysis to 3 times a week. 6. COPD with exacerbation, as by Pulmonary. RYAN/MODL Voice ID: [id number] Report ID: [id number]
[2024-11-22 17:21] VITALS: BP 113/79
[2024-11-22] MEDS ORDERED: Meropenem 1,000 MG in NA CHLORIDE 0.9% 100 ML IV SCH (18:00)
[2024-11-22] MEDS ORDERED: VANCOMYCIN 1 GM in NA CHLORIDE 0.9% 250 ML IVPB SCH (18:00)
--- NOTE | 2024-11-28 12:49 | EKG ---
Test Date: 2024-11-15 Test Time: 12:09:47 [place]: MALENA MEASUREMENT RESULTS: Intervals: Rate: 111 CO: QRSD: 96 QT: 326 QTc: 443 [place]: P: CO: QRS: 73 T: 77 INTERPRETIVE STATEMENTS: Atrial fibrillation with rapid ventricular response Abnormal ECG Compared to ECG 11/02/2024 12:21:12 Ventricular premature complex(es) no longer present Electronically Signed On 11-28-24 12:27:30 [employer] by Dylan Centeno
== END 2024-11-22 17:00 | disposition home health service (06) | DRG 4 ==
LOC: ER 14:22 → 2ND 17:17 → 3RD-ICU 11-02 10:50
PROVIDERS: ADMIT Internal Medicine; ATTEND Hospitalist
PROC: 4A033R1 Measurement of Arterial Saturation, Peripheral, Percutaneous Approach (ICD-10-PCS; 2024-11-02)
PROC: 02HV33Z Insertion of Infusion Device into Superior Vena Cava, Percutaneous Approach (ICD-10-PCS; 2024-11-02)
PROC: 5A09357 Assistance with Respiratory Ventilation, Less than 24 Consecutive Hours, Continuous Positive Airway Pressure (ICD-10-PCS; 2024-11-02)
PROC: 0T9B70Z Drainage of Bladder with Drainage Device, Via Natural or Artificial Opening (ICD-10-PCS; 2024-11-02)
PROC: 5A1955Z Respiratory Ventilation, Greater than 96 Consecutive Hours (ICD-10-PCS; principal; 2024-11-03)
PROC: 0BH17EZ Insertion of Endotracheal Airway into Trachea, Via Natural or Artificial Opening (ICD-10-PCS; 2024-11-03)
PROC: 5A12012 Performance of Cardiac Output, Single, Manual (ICD-10-PCS; 2024-11-15)
PROC: 3E043XZ Introduction of Vasopressor into Central Vein, Percutaneous Approach (ICD-10-PCS; 2024-11-15)
PROC: 0JH63XZ Insertion of Tunneled Vascular Access Device into Chest Subcutaneous Tissue and Fascia, Percutaneous Approach (ICD-10-PCS; 2024-11-20)
PROC: 02HV33Z Insertion of Infusion Device into Superior Vena Cava, Percutaneous Approach (ICD-10-PCS; 2024-11-20)
PROC: 0DH67UZ Insertion of Feeding Device into Stomach, Via Natural or Artificial Opening (ICD-10-PCS; 2024-11-20)
PROC: 0B110F4 Bypass Trachea to Cutaneous with Tracheostomy Device, Open Approach (ICD-10-PCS; 2024-11-20 07:00)
DX: J96.02 Acute respiratory failure with hypercapnia (principal); A41.9 Sepsis, unspecified organism; G92.9 Unspecified toxic encephalopathy; I50.33 Acute on chronic diastolic (congestive) heart failure; J18.9 Pneumonia, unspecified organism; R57.0 Cardiogenic shock; I46.9 Cardiac arrest, cause unspecified; N17.0 Acute kidney failure with tubular necrosis; R65.21 Severe sepsis with septic shock; Z68.42 Body mass index [BMI] 45.0-49.9, adult; E87.1 Hypo-osmolality and hyponatremia; E87.29 Other acidosis; E66.2 Morbid (severe) obesity with alveolar hypoventilation; I48.20 Chronic atrial fibrillation, unspecified; E87.0 Hyperosmolality and hypernatremia; J44.0 Chronic obstructive pulmonary disease with (acute) lower respiratory infection; N39.0 Urinary tract infection, site not specified; J96.01 Acute respiratory failure with hypoxia; I11.0 Hypertensive heart disease with heart failure; I27.81 Cor pulmonale (chronic); I48.91 Unspecified atrial fibrillation; E87.6 Hypokalemia; K59.00 Constipation, unspecified; I27.20 Pulmonary hypertension, unspecified; E11.43 Type 2 diabetes mellitus with diabetic autonomic (poly)neuropathy; K31.84 Gastroparesis; K43.9 Ventral hernia without obstruction or gangrene; F17.210 Nicotine dependence, cigarettes, uncomplicated; B95.7 Other staphylococcus as the cause of diseases classified elsewhere; R00.1 Bradycardia, unspecified; Z66 Do not resuscitate; Z23 Encounter for immunization; Z88.0 Allergy status to penicillin; Z88.7 Allergy status to serum and vaccine; Z11.52 Encounter for screening for COVID-19; Z91.041 Radiographic dye allergy status; Z79.82 Long term (current) use of aspirin; Z79.02 Long term (current) use of antithrombotics/antiplatelets; Z79.4 Long term (current) use of insulin; Z79.899 Other long term (current) drug therapy; Z86.14 Personal history of Methicillin resistant Staphylococcus aureus infection
CPT/HCPCS: 36415; 36600; 71045; 71250; 74018; 74176; 76000; 76770; 80048; 80053; 80069; 80202; 81001; 82570; 82805; 82947; 83605; 83735; 83880; 84100; 84132; 84145; 84156; 84439; 84443; 84484; 85025; 85027; 85610; 85730; 86021; 86705; 86706; 87040; 87070; 87077; 87086; 87088; 87186; 87205; 87340; 87804; 87811; 90935; 92950; 93005; 93306; 93925; 93970; 94002; 94003; 94640; 94660; 96365; 96375; 99285; A4216; C1752; J0171; J0360; J0692; J1120; J1450; J1644; J1650; J1720; J1940; J2150; J2185; J2250; J2270; J2371; J2405; J2470; J2550; J2704; J3010; J3480; J7030; J7040; J7050; J7060; J7605; J7613; J7614; J7644; J7799; P9045; Q0164